=== PATIENT | male | born 1935 | race Caucasian/White ===

== ENCOUNTER → 2023-12-30 | Outpatient (CLI) | payer MEDICARE, BC, SELFPAY ==
[2023-12-30 08:30] LABS: Basophils # (Auto) 0.1 Thou/mm3 (0.0-0.2); Basophils % (Auto) 1 % (0-2.5); Eosinophils # (Auto) 0.3 Thou/mm3 (0.0-0.5); Eosinophils % (Auto) 4 % (0-10); Hematocrit 44.2 % (41.0-53.0); Hemoglobin 14.8 g/dL (13.5-16.0); Immature Granulocytes % (Auto) 0 % (0-0); Immature Granulocytes Auto 0.03 Thou/mm3 (0.00-0.00); Lymphocytes # (Auto) 1.2 Thou/mm3 (1.0-4.8); Lymphocytes % (Auto) 18 % (10-50); Mean Corpuscular HGB Conc 33.5 g/dl (31.0-37.0); Mean Corpuscular Hemoglobin 30.3 pg (25.0-35.0); Mean Corpuscular Volume 91 fL (80-100); Monocytes # (Auto) 0.6 Thou/mm3 (0.0-0.8); Monocytes % (Auto) 9 % (0-12); Neutrophils # (Auto) 4.8 Thou/mm3 (1.8-7.7); Neutrophils % (Auto) 68 % (37-80); Nucleated Red Blood Cell % 0 /100 WBC (0); Platelet Count 309 Thou/mm3 (140-440); RDW Standard Deviation 47.2 fL (35.1-43.9); Red Blood Count 4.88 Miln/mm3 (4.50-5.90)
[2023-12-30 10:03] LABS: Alanine Aminotransferase 16 U/L (10-49); Albumin/Globulin Ratio 1.9 (1.2-2.2); Alkaline Phosphatase 57 U/L (46-116); Anion Gap 5 (7-16); Aspartate Amino Transferase 19 U/L (0-34); BUN/Creatinine Ratio 21 Ratio (12-20); Blood Urea Nitrogen 25 mg/dL (9-23); Calcium 10.3 mg/dL (8.3-10.6); Calcium (Corrected) 10.3 mg/dL (8.5-10.1); Carbon Dioxide 27.9 mMol/L (20.0-31.0); Chloride 106 mMol/L (98-107); Creatinine (Component) 1.2 mg/dL (0.6-1.3); Globulin 2.1 gm/dL (2.3-3.5); Glucose 158 mg/dL (74-106); Osmolality,Calculated 284 (275-295); Potassium 4.8 mMol/L (3.4-5.1); Sodium 139 mMol/L (136-145); Total Protein 6.1 gm/dL (5.7-8.2); eGFR 58 See Note
[2023-12-30 14:57] LABS: Bilirubin,Total 0.7 mg/dL (0.3-1.2); Cardiac Risk Estimate 5.4 RATIO (4.0-6.7); Cholesterol 196 mg/dL (132-200); HDL Cholesterol 36 mg/dL (40-60); LDL Cholesterol,Calculated 139 mg/dL (0-130); Triglycerides 105 mg/dL (30-150)
[2023-12-30 16:09] LABS: Glucose Estimated Average 186 mg/dL (80-131); Hemoglobin A1C 8.1 % Hgb (4.8-6.0)
== END | disposition home or self-care (01) ==
LOC: COPL 07:02
PROVIDERS: PCP Internal Medicine; Referring Provider Internal Medicine Cardiovascular Disease; Visit Provider Internal Medicine Cardiovascular Disease
DX: I25.118 Atherosclerotic heart disease of native coronary artery with other forms of angina pectoris (principal); I25.10 Atherosclerotic heart disease of native coronary artery without angina pectoris; E78.00 Pure hypercholesterolemia, unspecified
CPT/HCPCS: 36415; 80053; 80061; 83036; 85025

== ENCOUNTER 2024-01-17 06:32 | Day surgery (SDC) | payer MEDICARE, BC, SELFPAY ==
[2024-01-13 16:17] VITALS: BMI 23.3
--- NOTE | 2024-01-16 00:01 | EKG_ITS ---
[facility] Test Date: 2024-01-16 Pat Name: BALJIT SUNSHINE Department: Room: - Gender: Male [employer]electric Component Machinist: TANYA : 1935 Requested By: Nay Hernandez Order Number: [id number] Reading MD: Nay Hernandez Measurements Intervals [place] Rate: 60 P: VT: QRS: -76 QRSD: 177 T: 76 QT: 478 QTc: 478 Interpretive Statements ELECTRONIC VENTRICULAR PACEMAKER ABNORMAL RHYTHM ECG Compared to ECG 06/17/2023 16:40:30 Atrial fibrillation no longer present /store/S0/[id number].pdf
[2024-01-16 11:12] LABS: Basophils # (Auto) 0.1 Thou/mm3 (0.0-0.2); Basophils % (Auto) 1 % (0-2.5); Eosinophils # (Auto) 0.3 Thou/mm3 (0.0-0.5); Eosinophils % (Auto) 4 % (0-10); Hematocrit 46.1 % (41.0-53.0); Hemoglobin 15.5 g/dL (13.5-16.0); Immature Granulocytes % (Auto) 0 % (0-0); Immature Granulocytes Auto 0.02 Thou/mm3 (0.00-0.00); Lymphocytes # (Auto) 1.5 Thou/mm3 (1.0-4.8); Lymphocytes % (Auto) 17 % (10-50); Mean Corpuscular HGB Conc 33.6 g/dl (31.0-37.0); Mean Corpuscular Hemoglobin 30.7 pg (25.0-35.0); Mean Corpuscular Volume 91 fL (80-100); Monocytes # (Auto) 0.8 Thou/mm3 (0.0-0.8); Monocytes % (Auto) 9 % (0-12); Neutrophils % (Auto) 69 % (37-80); Nucleated Red Blood Cell % 0 /100 WBC (0); Platelet Count 311 Thou/mm3 (140-440); RDW Standard Deviation 47.9 fL (35.1-43.9); Red Blood Count 5.05 Miln/mm3 (4.50-5.90); White Blood Count 8.7 Thou/mm3 (3.8-10.6)
[2024-01-16 11:19] LABS: Anion Gap 7 (7-16); BUN/Creatinine Ratio 17 Ratio (12-20); Blood Urea Nitrogen 22 mg/dL (9-23); Calcium 10.4 mg/dL (8.3-10.6); Carbon Dioxide 29.1 mMol/L (20.0-31.0); Chloride 101 mMol/L (98-107); Creatinine (Component) 1.3 mg/dL (0.6-1.3); Estimated Creatinine Clearance 39.3 mL/min (>60); Glucose 221 mg/dL (74-106); Osmolality,Calculated 284 (275-295); Potassium 4.8 mMol/L (3.4-5.1); Sodium 137 mMol/L (136-145); eGFR 53 See Note
[2024-01-16 11:20] LABS: INR 1.1 (0.9-1.3); Partial Thromboplastin Time 28.3 Seconds (22.0-36.0); Prothrombin Time 11.8 Seconds (9.0-12.2)
[2024-01-17] VITALS (13 sets, daily range): BP systolic 117–137; BP diastolic 65–98; PULSE 60–62; RESP 10–20; TEMP 36.3–36.8; O2SAT 96–99
--- NOTE | 2024-01-17 11:41 | ESOP_ITS ---
RE: BALJIT SUNSHINE : 1935 DATE OF OPERATION: 01/17/2024 DATE OF PROCEDURE: 01/17/2024 PROCEDURE PERFORMED: 1. Diagnostic left heart catheterization, selective coronary angiogram, left ventricular angiogram, CPT code 34187. 2. PCI, PTCA, and stent placement of the distal left anterior descending artery, placement of drug-eluting stent, Synergy 2.5 x 16 mm stent, pre-procedure stenosis 95%, post- procedure stenosis 0%, pre-procedure JEAN PIERRE flow 2, post-procedure JEAN PIERRE flow 3. CPT 96985 3. PTCA and stent placement of the proximal left anterior descending artery, placement of drug-eluting stent 3.5 x 12 mm Synergy stent, pre-procedure stenosis 99%, post- procedure stenosis 0%, JEAN PIERRE flow pre-procedure 2, post-procedure 3. cpt 99595 -59 4. PTCA and angioplasty of the mid left anterior descending artery, cutting balloon angioplasty of the mid left anterior descending artery for in-stent restenosis, pre-procedure stenosis 90%, post-procedure 0%, JEAN PIERRE flow pre-procedure 3, post- procedure 3. 5. Conscious sedation 1-hour duration. cpt 60466 59 6. Ultrasound-guided access, right radial artery. DIAGNOSIS: Coronary artery disease, status post stent placement, angina pectoris with abnormal stress test. HISTORY AND INDICATIONS: The patient is an 88-year-old male with a history of known CAD, multiple stent placement of the left anterior descending artery in the past, atrial fibrillation. Has been increasing chest tightness, shortness of breath on exertion. Cardiac stress test and nuclear scan was performed that showed evidence of anteroapical ischemia, hence coronary angiogram was recommended for assessment of possible PCI intervention PROCEDURE IN DETAILS: The patient was brought to the cardiac catheterization laboratory where he was conscious sedation total of 2 mg Versed and 100 mcg of fentanyl. Right radial approach was taken. Right radial artery cannulated with micropuncture technique and a 6- Lebanese Glidesheath was introduced. Selective diagnostic right and left coronary angiogram, left heart catheterization, left ventricular angiogram performed by TIG-4 diagnostic catheter. Diagnostic procedure showed following findings: The right coronary artery is large and dominant, showed no significant stenosis. Large posterolateral branch showed evidence 90% stenosis distally. Posterior descending artery showed mild diffuse disease distally. Also, RCA giving a collateral circumflex Left coronary system: Left coronary is normal. Left anterior descending artery showed 99% stenosis of the proximal left anterior descending artery involving the origin of septal pipe bowls paint trimmer. Circumflex artery gives her AV groove branch. There is small obtuse marginal branch that is occluded, filling by collaterals. Proximal left anterior descending artery showed a 90% de patel stenosis. Mid left anterior descending artery showed a long stent with 90% in- stent restenosis. Distal left anterior descending artery showed de patel stenosis, 95% stenosis. Left ventricular pressure 116/10. Aortic pressure 116/80. No gradient across the aortic valve. Left ventricular angiogram showed normal left ventricular wall motion, ejection fraction 60%. Following diagnostic procedure, PCI undertaken. Multiple lesions in the left anterior descending artery were addressed. The patient received radial cocktail 3000 heparin. Additional 3000 heparin was given. Aspirin and Brilinta loading dose was given. Proceed with PCI initially. A 6 Lebanese FL3.5 guiding catheter was used to cannulate the left main coronary artery. Because I had inadequate support, I used Guidezilla guideliner support catheter and subsequently 0.014 Runthrough guidewire used to cross the lesion successfully. Distal left anterior descending artery was predilated using 2.25 x 12 mm balloon. The mid and proximal left anterior descending artery also predilated subsequently. Stent placement of distal left anterior descending artery performed. A 2.5 x 16 mm Synergy stent was developed distally in the left anterior descending artery _ subsequently. I dilated the mid LAD again with 2.5 mm balloon. Subsequently, proximal left anterior descending artery was predilated using 2.5 mm balloon and stent placement of the proximal left anterior descending artery was performed using 3.5 x 12 mm Synergy stent deployed in the proximal LAD. Two inflations were performed subsequently. Post stent deployment angioplasty of the proximal left anterior descending artery performed by 3.5 x 12 NC balloon with 6 atmospheric pressure. Subsequently, same 3.5 mm balloon was used to post dilated stents in the mid LAD. I performed a cutting balloon angioplasty because of in-stent restenosis for mid left anterior descending artery. A 3 x 10 Maxwell cutting balloon was used to dilate the mid left anterior descending artery in-stent restenosis successfully. Post dilated using 3.5 mm NC balloon at lower atmospheres of 8 mm pressures. Final angiogram showed widely patent proximal LAD, mid LAD, distal LAD. SUMMARY OF FINDINGS/SUGGESTIONS: 1. Complex PCI stent placement of the proximal mid and distal left anterior descending artery. Multiple stents placed and as well as cutting balloon angioplasty of the mid LAD performed. In the proximal LAD, pre-procedure stenosis is 99%, post-procedure is 0%. Stent is 3.5 x 12. No residual stenosis. 2. Mid LAD in-stent restenosis angioplasty successful using balloon angioplasty and cutting balloon angioplasty with excellent results. Pre-procedure stenosis 90%, post-procedure 0%, JEAN PIERRE flow pre and post 2 and 3. Distal LAD stent placement using 2.5 x 16 mm Synergy stent, pre-procedure stenosis 95%, post-procedure 0%, JEAN PIERRE flow 2 and 3. Complications none. Radial artery TR band was applied. Hemostasis was secured. The patient will be discharged home on aspirin 81 mg daily, Brilinta 90 mg twice daily. DT: 09:57:45 TT: 11:26:00 Ref: [id number] - TID: [id number] MTDD
== END 2024-01-17 13:30 | disposition home or self-care (01) ==
PROVIDERS: PCP Internal Medicine; Referring Provider Internal Medicine Cardiovascular Disease; Visit Provider Internal Medicine Cardiovascular Disease
PROC: (CPT 93458; principal; 2024-01-17 07:30)
PROC: (CPT 93458; 2024-01-17 07:30)
DX: I25.708 Atherosclerosis of coronary artery bypass graft(s), unspecified, with other forms of angina pectoris (principal); I25.118 Atherosclerotic heart disease of native coronary artery with other forms of angina pectoris; I48.91 Unspecified atrial fibrillation; Z95.5 Presence of coronary angioplasty implant and graft; I10 Essential (primary) hypertension; E11.9 Type 2 diabetes mellitus without complications; E78.00 Pure hypercholesterolemia, unspecified
CPT/HCPCS: 93458; C9604 ×2; C9605; 36415; 80048; 85025; 85347; 85610; 85730; 93005; 99152; 99153; A4649; C1725; C1769; C1874; C1887; C1894; J0171; J0461; J1643; J2250; J2310; J2371; J3010; J3490; Q9967; A9270; J1644; J2305

== ENCOUNTER 2024-02-21 10:06 | Day surgery (SDC) | payer MEDICARE, BC, SELFPAY ==
--- NOTE | 2024-02-20 11:02 | EKG_ITS ---
[facility] Test Date: 2024-02-20 Pat Name: BALJIT SUNSHINE Department: Room: - Gender: Male Supervisor Production: SAMUEL CORREAB: 1935 Requested By: Nay Hernandez Order Number: [id number] Reading MD: Nay Hernandez Measurements Intervals [place] Rate: 60 P: DC: QRS: -79 QRSD: 174 T: 80 QT: 468 QTc: 468 Interpretive Statements ELECTRONIC VENTRICULAR PACEMAKER ABNORMAL RHYTHM ECG Compared to ECG 01/16/2024 10:08:39 No significant changes /store/S0/[id number]/[id number].pdf
[2024-02-20 12:36] LABS: Basophils # (Auto) 0.1 Thou/mm3 (0.0-0.2); Basophils % (Auto) 1 % (0-2.5); Eosinophils # (Auto) 0.2 Thou/mm3 (0.0-0.5); Eosinophils % (Auto) 4 % (0-10); Hematocrit 43.9 % (41.0-53.0); Hemoglobin 14.9 g/dL (13.5-16.0); Immature Granulocytes % (Auto) 1 % (0-0); Immature Granulocytes Auto 0.04 Thou/mm3 (0.00-0.00); Lymphocytes # (Auto) 1.4 Thou/mm3 (1.0-4.8); Lymphocytes % (Auto) 22 % (10-50); Mean Corpuscular HGB Conc 33.9 g/dl (31.0-37.0); Mean Corpuscular Hemoglobin 31.1 pg (25.0-35.0); Mean Corpuscular Volume 92 fL (80-100); Monocytes # (Auto) 0.6 Thou/mm3 (0.0-0.8); Monocytes % (Auto) 9 % (0-12); Neutrophils # (Auto) 4.1 Thou/mm3 (1.8-7.7); Neutrophils % (Auto) 64 % (37-80); Nucleated Red Blood Cell % 0 /100 WBC (0); Platelet Count 303 Thou/mm3 (140-440); RDW Standard Deviation 49.3 fL (35.1-43.9); Red Blood Count 4.79 Miln/mm3 (4.50-5.90); White Blood Count 6.4 Thou/mm3 (3.8-10.6)
[2024-02-20 12:38] LABS: Anion Gap 7 (7-16); BUN/Creatinine Ratio 15 Ratio (12-20); Blood Urea Nitrogen 19 mg/dL (9-23); Chloride 101 mMol/L (98-107); Creatinine (Component) 1.3 mg/dL (0.6-1.3); Glucose 264 mg/dL (74-106); Osmolality,Calculated 285 (275-295); Potassium 5.1 mMol/L (3.4-5.1); Sodium 137 mMol/L (136-145); eGFR 53 See Note
[2024-02-20 12:40] LABS: INR 1.1 (0.9-1.3); Prothrombin Time 11.5 Seconds (9.0-12.2)
[2024-02-20 14:43] VITALS: BMI 24.0
[2024-02-21] VITALS (14 sets, daily range): BP systolic 110–143; BP diastolic 62–82; PULSE 60; RESP 11–18; TEMP 36.1–36.4; O2SAT 95–99; BMI 24.4
--- NOTE | 2024-02-21 14:44 | ESOP_ITS ---
RE: BALJIT SUNSHINE : 1935 DATE OF OPERATION: 02/21/2024 PROCEDURE PERFORMED: 1. Diagnostic left heart cardiac catheterization, selective coronary angiogram, left ventricular angiogram CPT 51995. 2. PCI, PTCA stent placement of the posterolateral branch of RCA, placement of drug-eluting stent, 2.5 x 16 Synergy stent. Preprocedure stenosis is 95%, postprocedure 0%. JEAN PIERRE flow preprocedure 2, postprocedure 3, complex lesion, CPT 51044. 3. Ultrasound-guided access, right radial artery. DIAGNOSES: Coronary artery disease, status post previous stent placement, multivessel CAD, angina pectoris. HISTORY AND INDICATIONS: The patient is an 88-year-old male with history of hypertension, angina, coronary artery disease, underwent stent placement of proximal, mid and distal left anterior descending artery a month ago, had recurrent shortness of breath and chest pressure. The patient was found to have 95% stenosis with a large RPL branch of the right coronary artery. Recommended to have coronary angiogram. If the LAD is patent, proceed with PCI of RCA. DESCRIPTION OF PROCEDURE: The patient was brought to cardiac catheterization laboratory. He was given 2 mg of Versed and 50 mcg of fentanyl for sedation. Right radial approach was taken. Right radial artery was cannulated with micropuncture technique. A 6-Thai Glidesheath was introduced. Selective left coronary angiogram performed by JL3.5 diagnostic catheter. Left ventricular angiogram, left heart catheterization was also performed by same catheter. Subsequently, we used FR4 guiding catheter for PCI. Radial cocktail, 3000 units of heparin given. Additional 2000 units plus 500 units of heparin was given. ACT was therapeutic. The patient is already on aspirin and Brilinta. Proceeded with PCI of RCA. Right coronary angiogram showed evidence of a 95% stenosis in the posterolateral branch of the right coronary artery. Left coronary angiogram showed left main coronary artery is normal. Left anterior descending artery showed multiple stents are all patent. Diagonal branch showed moderate disease. HEMODYNAMICS: Left ventricular pressure recorded 106/10 mmHg, aortic pressure 106/70 mmHg. No gradient across the aortic valve. Left ventricular angiogram showed normal ejection fraction of 60%. PCI details are as follows: The patient was given IV heparin 5000 FR4 guiding catheter used anf cannulated right coronary artery. A 0.014 Runthrough guidewire was used to cross the lesion successfully. Pre-dilation of the lesion performed by 2 mm Emerge balloon. Subsequently, 2.5 x 16 mm Synergy drug eluting stent was deployed in the posterolateral branch of the right coronary artery with excellent angiographic results. Total 3 inflations performed with maximum of 14 KWAN, POST Angiogram showed widely patent RCA and posterolateral branch with no residual stenosis. SUMMARY OF FINDINGS: 1. Widely patent stent involving proximal, mid and distal left anterior descending artery and no restenosis. 2. 95% stenosis of the posterolateral branch of RCA, 2.5 mm vessel, underwent successful PCI with stent placement drug eluting stent Synergy 2.5 x 16 stent. No complications. Estimated blood loss was less than 5 mL. The TR band was applied and sheath was removed successfully. The patient will be discharged on the same day. Continue current medications including aspirin and Brilinta. DT: 13:07:11 TT: 13:56:00 Ref: [id number] - TID: [id number] [facility]
--- NOTE | 2024-02-21 16:19 | PC.NURSE ---
1455 patient is awake, alert, breathing unlabored s/p LHC with PCI, TR band present to right wrist, no bleeding, hematoma noted. Report received from Jessica STUART ok to start removing air from TR band after 1502. 1505 2ml air removed from TR band by Catalina Charge nurse, no active bleeding or hematoma noted. 1555 TR band removed, no bleeding or hematoma noted, site covered with tegaderm and coban.
--- NOTE | 2024-02-21 17:58 | PC.NURSE ---
1710 patient is awake, alert, breathing unlabored, dressing to right wrist dry with no bleeding or hematoma, discharge instructions given to patient and family member stanley, patient discharged home in wheelchair with all belongings including walker.
== END 2024-02-21 17:10 | disposition home or self-care (01) ==
PROVIDERS: PCP Internal Medicine; Referring Provider Internal Medicine Cardiovascular Disease; Visit Provider Internal Medicine Cardiovascular Disease
PROC: (CPT 93458; principal; 2024-02-21 11:30)
DX: I25.118 Atherosclerotic heart disease of native coronary artery with other forms of angina pectoris (principal); I10 Essential (primary) hypertension; Z01.810 Encounter for preprocedural cardiovascular examination; Z95.5 Presence of coronary angioplasty implant and graft; I48.91 Unspecified atrial fibrillation; E11.9 Type 2 diabetes mellitus without complications
CPT/HCPCS: 93458; C9600; 36415; 80048; 85025; 85347; 85610; 85730; 93005; 99152; 99153; A4649; C1725; C1769; C1874; C1887; C1894; J0171; J0461; J1643; J2250; J2310; J2371; J3010; J3490; Q9967; J2305

== ENCOUNTER 2024-02-22 12:27 | Inpatient (IN) | payer MEDICARE, BC, SELFPAY ==
[2024-02-22] VITALS (8 sets, daily range): BP systolic 135–152; BP diastolic 69–82; PULSE 60–67; RESP 14–24; TEMP 35.8–36.7; O2SAT 97–100
--- NOTE | 2024-02-22 13:00 | PC.NURSE ---
PT BIBA FOR FACIAL DROOP, APHASIA, AND CONFUSION THAT STARTED THIS MORNING AROUND 9 AM. PER PATIENT FAMILY HE HAVING A VERY HARD TIME GETTING WORDS OUT AND NOT ABLE TO ARTICULATE WHAT HE WANTED TO SAY. THIS IS NOT HIS NORMAL BASELINE. PT ARRIVED AND WAS HAVING EPISODE OF APHASIA, ALERT AND ORIENTED X2, PT ALSO HAS HX OF DEMENTIA, PARKINSONS, DM, HTN, AFIB YESTERDAY HE HAD STENTS PLACED BY DR PRIETO. AND WAS RECENTLY TAKEN OFF OF ELOQUIS. PT ALSO HAS A PACEMAKER. CHALINO VALENTE CONTACTED AND EVALUATING PT.
--- NOTE | 2024-02-22 13:27 | EKG_ITS ---
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
--- NOTE | 2024-02-22 13:27 | XR_ITS ---
Examination: AP chest single view Technique one AP portable upright chest single view Exam date and time: February 22, 2024 1448 hours Comparison April 07, 2017 INDICATIONS: Onset chest pain today FINDINGS: Mild enlargement cardiac contour Ventricular cardiac lead satisfactory position No pneumonia or pulmonary edema Prominent osteopenia IMPRESSION: Mild vascular congestion No pneumonia or pulmonary edema
--- NOTE | 2024-02-22 13:29 | PD.EDNEURO ---
Neuro Symptoms Deficit-RME/HPI General Chief Complaint: Neuro Symptoms/Deficit Stated Complaint: FACIAL DROOP Time Seen by Provider: 02/22/24 13:41 Arrival date/time: 02/22/24 12:27 RME / HPI RME / HPI Narrative: 88 year old male with history of Parkinson's disease, dementia, CAD s/p stents x6, AFib, s/p pacemaker placement, diabetes presents to the ED for evaluation of altered mental status today. Per medics, [place] staff reported family noticed a facial droop prompting calling 911. Medics report on scene patient was a GCS of 14 which is his baseline and no deficits noted. While in the ED, patient has no complaints and requesting a urinal to urinate. 1335: Daughter now at bedside. Reports patient underwent angiogram and stent placement by Dr. Tomas Andersen yesterday(02/20) without complications. Was dropped off at the half-way ~ 6pm last night and appeared to be at his baseline. However, states she received a call at 7pm from her [id number] who also lives at the half-way that the patient appeared more confused than normal. This morning while visiting the patient at 07:30 am appeared to be at his baseline and conversive. States at 09:30-10:00 am the patient began having difficulty talking and by 11:00 am says the whole mouth was drooping and was unable to say his name or date of . Daughter states they consulted with tank inspector Dr. Andersen who advised coming to the ED, stopping the Brilinta, restarting the Eliquis tonight and would also prescribe Plavix. Related Data Home Medications ?Medication ?Instructions ?Recorded ?Confirmed aspirin 81 mg tablet,delayed 81 mg PO QDAY 06/20/23 02/21/24 release insulin glargine 100 unit/mL (3 20 unit subcut DAILY 06/20/23 02/21/24 mL) subcutaneous pen (Lantus Solostar U-100 Insulin) ramipril 2.5 mg tablet 2.5 mg PO QDAY 06/20/23 02/21/24 sitagliptin phosphate 50 mg tablet 50 mg PO QDAY 06/20/23 02/21/24 (Januvia) metformin 500 mg tablet 500 mg PO BID 01/17/24 02/21/24 nateglinide 60 mg tablet 60 mg PO BID 01/17/24 02/21/24 Previous Rx's ?Medication ?Instructions ?Recorded ticagrelor 90 mg tablet (Brilinta) 90 mg PO BID #60 tabs 01/17/24 Allergies Allergy/AdvReac Type Severity Reaction Status Date / Time No Known Allergies Allergy Verified 01/13/24 16:14 Review of Systems Review of Systems Narrative Review of Systems: GEN: No fever, no chills, no weight loss EYES: No discharge, no visual changes, no pain HEENT: No ear pain, no congestion, no sore throat PULM: No shortness of breath, no cough, no congestion CV: No chest pain, no dyspnea on exertion, no palpitations GI: No nausea, no vomiting, no diarrhea, no pain, no constipation : No frequency, no urgency and no dysuria MUSC/SKEL No joint pain, no back pain SKIN: No rash NEURO: No weakness, no headache, +mouth drooping per daughter, + expressive aphasia per daughter Past Medical History Past Medical History NEUROLOGIC: Positive Neurological Disorders, Dementia (diagnosed 12/2022) and Parkinson's Disease (diagnosed 12/2022) CARDIAC: Positive Cardiac Disorders (stents), Atrial Fibrillation and Hypertension (controlled at this time) RESPIRATORY: Positive Pneumonia (in past) GENITOURINARY: Positive Genitourinary Disorders and Benign Prostatic Hyperplasia (in past, asymptomatic now) MUSCULOSKELETAL: Positive Musculoskeletal Disorders ENT: Positive Cataracts and Deafness ([employer]RE[employer]-WE[employer] BILAT HEARING AIDES) ENDOCRINE: Positive Endocrine Disorders and Diabetes Mellitus Type 2 OTHER HISTORY: Positive Cancer (prostate cancer) Surgical History SURGICAL: Positive Cardiac Surgery, Coronary Stent (2009), Pacemaker, Angiogram, Transurethral Resection (2016) and Joint Replacement (BILATERAL HIPS 1987) Social History SMOKING STATUS: Never smoker ED Exam Narrative Physical exam: GENERAL APPEARANCE: Awake, tremulous, well-developed, well-nourished, no acute distress HEENT: Normocephalic, atraumatic; pupils equal, round, reactive to light; EOMI; mucous membranes pink, moist; oropharynx clear NECK: Supple LUNGS: CTABL; no wheezes, no rales, no rhonchi HEART: Regular rate, regular rhythm; normal S1, S2; no murmurs ABDOMEN: non distended; normal BS; soft, no tenderness, no guarding, no rebound; no masses, no organomegaly, no hernia BACK: no CVA tenderness EXTREMITIES: atraumatic; no edema NEUROLOGIC: awake; alert and oriented x4; cranial nerves II-XII grossly intact; tremulous; strength 5/5 bilateral upper extremities; no focal sensory or motor deficits PSYCHIATRIC: appropriate mood and affect SKIN: warm, dry, normal color; no rashes On reexamination at 13:35 patients speech is slurred and appears confused. Course Course Course Narrative: 1339: Stroke alert called overhead. Quality Measures stroke Orders Category Date Time Status Patient Condition Routine Admission 02/22/24 16:25 Ordered admission [Admit to Inpatient Status] Routine Admission 02/22/24 16:35 Active Aspiration precautions ONCE Care 02/22/24 16:35 Active Bedside Blood Glucose ACHS Care 02/22/24 16:36 Active Bedside Blood Glucose NOW Care 02/22/24 13:39 Active COVID-19 Screening Questionnaire NOW Care 02/22/24 15:54 Active Statue Maker NOW Care 02/22/24 13:27 Active Statue Maker NOW Care 02/22/24 13:39 Active Continuous Pulse Oximetry NOW Care 02/22/24 13:39 Completed Decision to Admit X1 Care 02/22/24 15:54 Active EKG (ED ONLY) *Do not use* NOW Care 02/22/24 13:27 Completed Flu & Pneumonia Vaccine Screen ONCE Care 02/22/24 16:25 Active HOB > 30 Degrees All Times QSHIFT Care 02/22/24 16:25 Active In and Out Catheter NEEDED Care 02/22/24 13:39 Active Insert IV NOW Care 02/22/24 13:39 Active MRI Screening NOW Care 02/22/24 14:40 Active MRI Screening NOW Care 02/22/24 16:27 Active Miscellaneous Nursing Order NOW Care 02/22/24 16:41 Active NIH Stroke Scale now Care 02/22/24 13:39 Active NPO NOW Care 02/22/24 13:39 Active NPO NOW Care 02/22/24 16:30 Active Neuro Check Q4H Care 02/22/24 16:25 Active Notify provider NEEDED Care 02/22/24 16:25 Active Nurse Swallow Screen x1 Care 02/22/24 13:39 Active Consult to Cardiology Stat Cons 02/22/24 16:48 Ordered Consult to Neurology / Tele-Neurology Routine Cons 02/22/24 13:39 Active Consult to Neurology / Tele-Neurology Stat Cons 02/22/24 16:48 Active Referral Physical Therapy Stat Cons 02/22/24 16:29 Active Referral Speech Therapy Stat Cons 02/22/24 16:27 Active Diet NPO (NOW) Diet 02/22/24 16:30 Active CA echo doppler complete Stat Exams 02/22/24 16:25 Ordered CA echo doppler complete Stat Exams 02/22/24 16:[address] angio stroke protocol Stat Exams 02/22/24 13:[address] stroke protocol Stat Exams 02/22/24 13:39 Completed EKG (ED Only) Stat Exams 02/22/24 13:27 Draft MR head/brain wo con Stat Exams 02/22/24 Ordered MR stroke protocol Stat Exams 02/22/24 Ordered XR chest 1V portable Stat Exams 02/22/24 13:27 Completed B-Type Natriuretic Peptide Stat Lab 02/22/24 13:46 Completed CBC AM DRAW Lab 02/23/24 05:00 Ordered CBC AM DRAW Lab 02/24/24 05:00 Ordered CBC AM DRAW Lab 02/25/24 05:00 Ordered CBC AM DRAW Lab 02/26/24 05:00 Ordered CBC AM DRAW Lab 02/27/24 05:00 Ordered CBC Stat Lab 02/22/24 13:46 Completed Comprehensive Metabolic Panel AM DRAW Lab 02/23/24 05:00 Ordered Comprehensive Metabolic Panel AM DRAW Lab 02/24/24 05:00 Ordered Comprehensive Metabolic Panel AM DRAW Lab 02/25/24 05:00 Ordered Comprehensive Metabolic Panel AM DRAW Lab 02/26/24 05:00 Ordered Comprehensive Metabolic Panel AM DRAW Lab 02/27/24 05:00 Ordered Comprehensive Metabolic Panel Stat Lab 02/22/24 13:46 Completed Drug Screen,Urine Stat Lab 02/22/24 13:39 Ordered Glycohemoglobin w (eAG) Stat Lab 02/22/24 16:29 Ordered Lipase Stat Lab 02/22/24 13:46 Completed Lipid Panel AM DRAW Lab 02/23/24 05:00 Ordered Magnesium AM DRAW Lab 02/23/24 05:00 Ordered Magnesium AM DRAW Lab 02/24/24 05:00 Ordered Magnesium AM DRAW Lab 02/25/24 05:00 Ordered Magnesium AM DRAW Lab 02/26/24 05:00 Ordered Magnesium AM DRAW Lab 02/27/24 05:00 Ordered Magnesium Stat Lab 02/22/24 13:46 Completed Partial Thromboplastin Time Stat Lab 02/22/24 13:46 Completed Prothrombin Time with INR Stat Lab 02/22/24 13:46 Completed TSH [Thyroid Stimulating Hormone] Stat Lab 02/22/24 16:29 Ordered Thyroid Stimulating Hormone AM DRAW Lab 02/23/24 05:00 Ordered Troponin I Stat Lab 02/22/24 13:46 Completed Urinalysis Stat Lab 02/22/24 13:39 Ordered Urine Culture Stat Lab 02/22/24 13:39 Ordered Vitamin B12 Stat Lab 02/22/24 16:29 Ordered Acetaminophen Tab [Tylenol Tab] Med 02/22/24 16:25 Active 650 mg PO Q6H PRN Acetaminophen Tab [Tylenol Tab] Med 02/22/24 16:25 Active 650 mg PO Q6H PRN Aspirin Med 02/22/24 15:48 Discontinued 325 mg .ROUTE .STK-MED ONE Aspirin Med 02/22/24 16:09 Discontinued 325 mg PO X1 ONE Aspirin Supp Med 02/22/24 14:39 Discontinued 300 mg CA X1 ONE Aspirin [Ecotrin] Med 02/23/24 09:00 Active 81 mg PO QDAY Atorvastatin Calcium [Lipitor] Med 02/22/24 21:00 Active 80 mg PO HS Clopidogrel [Plavix] Med 02/22/24 14:39 Discontinued 300 mg PO X1 ONE Clopidogrel [Plavix] Med 02/23/24 09:00 Active 75 mg PO QDAY Dextrose 50% Syr [D50w Syringe Abboject] Med 02/22/24 16:36 Active 25 ml IV Q15MIN PRN Dextrose 50% Syr [D50w Syringe Abboject] Med 02/22/24 16:36 Active 50 ml IV Q15MIN PRN Docusate Sod [Colace] Med 02/23/24 09:00 Active 100 mg PO QDAY Glucagon Inj Med 02/22/24 16:36 Active 1 mg IM Q15MIN PRN INSULIN LISPRO (AdmeLOG) [HumaLOG] Med 02/22/24 17:00 Active See Protocol SC AC Ondansetron Inj [Zofran Inj] Med 02/22/24 16:25 Active 4 mg IV Q6H PRN Sodium Chloride 0.9% 1000 ml [Ns] 1,000 ml Med 02/22/24 16:30 Active IV 75 mls/hr Code Status Routine Oth 02/22/24 16:25 Ordered Oxygen Delivery NOW RT 02/22/24 13:39 Active Vital Signs Vital signs: Vital Signs Temperature 97.8 F 02/22/24 12:55 Pulse Rate 60 02/22/24 12:55 Respiratory Rate 20 02/22/24 12:55 Blood Pressure 139/76 H 02/22/24 12:55 Pulse Oximetry (%) 100 02/22/24 12:55 Oxygen Delivery Method Room Air 02/22/24 12:55 Pulse ox is 100% on room air which is adequate. Neuro Symptoms / Deficit MDM Narrative MDM Narrative:: Jaquelin Monterroso am scribing for and in the presence of Dr. Headley. Patient data External records reviewed:: [facility] previous records (I reviewed H&P from Dr. Andersen on 02/21/2024), EMS form and Skilled Nursing records (I reviewed pmhx and medication list from half-way) Clinical information provided by:: patient, EMS and family (Daughter add to hpi) Social determinants that could affect healthcare access:: housing ([place] resident ) Patient has the following chronic illnesses:: Parkinson's disease, dementia, CAD s/p stents x6, AFib, s/p pacemaker placement, diabetes How is presenting disease/condition affected by chronic disease/condition?: exacerbated by Evaluation data The following diagnostics were reviewed and interpreted by me:: lab results, radiology exam(s) and EKG tracing(s) (EKG done at 1344 hours: pacemaker, rate 60) Lab and/or radiology exams considered but not ordered:: None Interpretation Summary: Procedure(s): XR chest 1V portable Accession Number(s): [id number] cc: Yusuf Martin MD; Geremias Higgins MD; Jo Headley MD~ Examination: AP chest single view Technique one AP portable upright chest single view Exam date and time: February 22, 2024 1448 hours Comparison April 07, 2017 INDICATIONS: Onset chest pain today FINDINGS: Mild enlargement cardiac contour Ventricular cardiac lead satisfactory position No pneumonia or pulmonary edema Prominent osteopenia IMPRESSION: Mild vascular congestion No pneumonia or pulmonary edema Dictated By: Geremias Higgins MD Procedure(s): CT stroke protocol Accession Number(s): [id number] cc: Geremias Higgins MD; Jo Headley MD~ Examination: CT brain head without contrast. 2-D sagittal coronal reconstructions Date and time of exam:February 22, 2024 1405 hours INDICATIONS: Stroke alert with onset aphasia today altered mental status CTDI: vol (mGy):49.7 DLP: (mGycm):982 Technique: Multiple CT axial sections of the brain have been obtained, 5 mm slice thickness. Contrast has not been administered. 2-D sagittal, coronal reconstructions have been obtained Low dose protocols were performed. One or more of the following dose reduction techniques were used; automated exposure control, adjustment of the mA and/or KV according to patient size, use of iterative reconstruction technique. Findings: No significant ventricular enlargement. Intra-axial or extra-axial hemorrhage density is not seen. No mass effect or midline shift Basal cisterns are not remarkable. Fourth ventricle is midline. Cranial vault intact. Impression: Negative for acute hemorrhage, mass effect or midline shift Dictated By: Geremias Higgins MD Procedure(s): CT angio stroke protocol Accession Number(s): [id number] cc: Yusuf Martin MD; Geremias Higgins MD; Jo Headley MD~ Examination: CTA carotids with intravenous contrast CTA brain, head with intravenous contrast. 2-D sagittal, coronal reconstructions. 3-D reconstructions. Exam date and time: February 22, 2024 1411 hours INDICATIONS: Stroke alert today, altered mental status and aphasia CTDI: vol (mGy) 32.7 DLP: (mGycm) 457 Technique: Multiple CTA axial brain, head carotid images post intravenous contrast injection 75 cc, Isovue-370. 2-D sagittal, coronal reconstructions. 3-D reconstructions, 3-D post processing including vascular maximum intensity projection images. Low dose protocols were performed. One or more of the following dose reduction techniques were used; automated exposure control, adjustment of the mA and/or KV according to patient size, use of iterative reconstruction technique. Findings: No significant common carotid carotid bifurcation or internal carotid artery stenoses Dominant left vertebral artery with no critical stenoses Short segment 70% stenosis distal M1 segment right middle cerebral artery Markedly reduced caliber and opacification left posterior cerebral artery although no large vessel occlusions IMPRESSION: No significant neck arterial stenoses Short segment 70% stenosis distal M1 segment right middle cerebral artery Markedly reduced caliber and opacification left posterior cerebral artery Dictated By: Geremias Higgins MD Medications / Prescriptions Medications or Prescriptions considered but not ordered:: None Medication administrations:: Medication Administration History Acetaminophen (Acetaminophen 325 Mg Tablet) 650 mg PO Q6H PRN PRN Reason: Fever >100.5 Stop: 03/23/24 16:24 Acetaminophen (Acetaminophen 325 Mg Tablet) 650 mg PO Q6H PRN PRN Reason: PAIN SCALE 1-3 (mild Stop: 03/23/24 16:24 Aspirin (Aspirin Ec 81 Mg Tabec) 81 mg PO QDAY MI Stop: 03/24/24 08:59 Atorvastatin Calcium (Atorvastatin Calcium 20 Mg Tablet) 80 mg PO HS MI Stop: 03/23/24 20:59 Clopidogrel Bisulfate (Clopidogrel Bisulfate 75 Mg Tablet) 75 mg PO QDAY MI Stop: 03/24/24 08:59 Dextrose (Dextrose 50%-Water Inj 50 Ml Syringe) 50 ml IV Q15MIN PRN PRN Reason: BG <50 OR BG <70 & pt unresponsive Stop: 03/23/24 16:35 Dextrose (Dextrose 50%-Water Inj 50 Ml Syringe) 25 ml IV Q15MIN PRN PRN Reason: BG 50-70 responsive npo pt Stop: 03/23/24 16:35 Docusate Sodium (Docusate Sod 100 Mg Capsule) 100 mg PO QDAY [facility]; Protocol Stop: 03/24/24 08:59 Glucagon (Glucagon Inj 1 Mg Vial) 1 mg IM Q15MIN PRN PRN Reason: BG <70, and no IV access Sodium Chloride (Ns) 1,000 mls @ 75 mls/hr IV .[id number] [facility] Stop: 03/24/24 12:29 Insulin Human Lispro (Insulin Lispro (Admelog) 1 Unit/0.01 Ml Unit) 0 unit SC AC [facility]; Protocol Stop: 03/23/24 16:59 Ondansetron HCl (Ondansetron Inj 2 Mg/Ml Inj 2 Ml) 4 mg IV Q6H PRN; Protocol PRN Reason: NAUSEA OR VOMITING Stop: 03/23/24 16:24 Discontinued Medications Aspirin (Aspirin 300 Mg Supp) 300 mg CA X1 ONE Stop: 02/22/24 14:40 Last Admin: 02/22/24 16:10 Dose: Not Given Documented By: ARF Non-Admin Reason: Other, see note Aspirin (Aspirin 325 Mg Tablet) Confirm Administered Dose 325 mg .ROUTE .STK-MED ONE Stop: 02/22/24 15:49 Last Admin: 02/22/24 16:10 Dose: Not Given Documented By: ARF Non-Admin Reason: Other, see note Aspirin (Aspirin 325 Mg Tablet) 325 mg PO X1 ONE Stop: 02/22/24 16:10 Last Admin: 02/22/24 16:10 Dose: 325 mg Documented By: ARF Clopidogrel Bisulfate (Clopidogrel Bisulfate 75 Mg Tablet) 300 mg PO X1 ONE Stop: 02/22/24 14:40 Last Admin: 02/22/24 16:02 Dose: 300 mg Documented By: ARF see above Consultations Consultation(s) initiated? (list below): Yes Consultation #1 (Physician, Specialty, Details): Discussed test HPI, PMHx, lab, radiology results and/or management with hospitalist. Will admit for further evaluation and management. Accepts patient for admission. Time: 16:30 Diagnosis Neuro Differential Diagnosis: subarachnoid hemorrhage, cerebrovascular accident and transient cerebral ischemia Most likely diagnosis given after review of the tests above:: As noted below. Admission Indicated Admission indicated?: indicated Admission Request Was there a request for admission?: Yes Admission Attestation Admission request attestation: Discussed case with [] from Hospitalist service regarding admission. Discussed patients ED course, exam findings, labs, and radiology results. The Hospitalist [agrees,declines] to accept the patient for admission. Disposition Plan Disposition Plan: Admit Discharge Plan Plan Patient Disposition: Admit Acute Care w/in Hospital Prescriptions/Referrals Prescriptions/Med Rec: No Action aspirin 81 mg Tablet,Delayed Release (Dr/Ec) 81 mg PO QDAY Hold Instructions: Resume on 06/22/23. Januvia 50 mg Tablet 50 mg PO QDAY insulin glargine [Lantus Solostar U-100 Insulin] 100 unit/mL (3 mL) Insulin Pen 20 unit SUBCUT DAILY Rx Instructions: with meal ramipril 2.5 mg Tablet 2.5 mg PO QDAY metformin 500 mg Tablet 500 mg PO BID Hold Instructions: Resume on 02/23/24. nateglinide 60 mg Tablet 60 mg PO BID Rx Instructions: give before meal(s) Brilinta 90 mg Tablet 90 mg PO BID Qty: 60 0RF Referrals: Yusuf Martin MD [Primary Care Provider] - In 1 week Patient/Caregiver Discharge Instructions Print Language: Liberian Stand Alone Forms: [facility] Award Info., Patient Portal Info Letter
--- NOTE | 2024-02-22 13:39 | XR_ITS ---
Examination: CT brain head without contrast. 2-D sagittal coronal reconstructions Date and time of exam:February 22, 2024 1405 hours INDICATIONS: Stroke alert with onset aphasia today altered mental status CTDI: vol (mGy):49.7 DLP: (mGycm):982 Technique: Multiple CT axial sections of the brain have been obtained, 5 mm slice thickness. Contrast has not been administered. 2-D sagittal, coronal reconstructions have been obtained Low dose protocols were performed. One or more of the following dose reduction techniques were used; automated exposure control, adjustment of the mA and/or KV according to patient size, use of iterative reconstruction technique. Findings: No significant ventricular enlargement. Intra-axial or extra-axial hemorrhage density is not seen. No mass effect or midline shift Basal cisterns are not remarkable. Fourth ventricle is midline. Cranial vault intact. Impression: Negative for acute hemorrhage, mass effect or midline shift
--- NOTE | 2024-02-22 13:39 | XR_ITS ---
Examination: CTA carotids with intravenous contrast CTA brain, head with intravenous contrast. 2-D sagittal, coronal reconstructions. 3-D reconstructions. Exam date and time: February 22, 2024 1411 hours INDICATIONS: Stroke alert today, altered mental status and aphasia CTDI: vol (mGy) 32.7 DLP: (mGycm) 457 Technique: Multiple CTA axial brain, head carotid images post intravenous contrast injection 75 cc, Isovue-370. 2-D sagittal, coronal reconstructions. 3-D reconstructions, 3-D post processing including vascular maximum intensity projection images. Low dose protocols were performed. One or more of the following dose reduction techniques were used; automated exposure control, adjustment of the mA and/or KV according to patient size, use of iterative reconstruction technique. Findings: No significant common carotid carotid bifurcation or internal carotid artery stenoses Dominant left vertebral artery with no critical stenoses Short segment 70% stenosis distal M1 segment right middle cerebral artery Markedly reduced caliber and opacification left posterior cerebral artery although no large vessel occlusions IMPRESSION: No significant neck arterial stenoses Short segment 70% stenosis distal M1 segment right middle cerebral artery Markedly reduced caliber and opacification left posterior cerebral artery
--- NOTE | 2024-02-22 13:49 | PC.NURSE ---
called stroke alert- ct has a pt on the table for a abiopsy- they will call when ct is ready
[2024-02-22 13:56] LABS: Basophils % (Auto) 1 % (0-2.5); Eosinophils # (Auto) 0.2 Thou/mm3 (0.0-0.5); Eosinophils % (Auto) 3 % (0-10); Immature Granulocytes % (Auto) 0 % (0-0); Immature Granulocytes Auto 0.02 Thou/mm3 (0.00-0.00); Lymphocytes # (Auto) 1.1 Thou/mm3 (1.0-4.8); Lymphocytes % (Auto) 15 % (10-50); Mean Corpuscular Hemoglobin 31.1 pg (25.0-35.0); Mean Corpuscular Volume 89 fL (80-100); Monocytes # (Auto) 0.9 Thou/mm3 (0.0-0.8); Monocytes % (Auto) 12 % (0-12); Neutrophils % (Auto) 69 % (37-80); Nucleated Red Blood Cell % 0 /100 WBC (0); Platelet Count 256 Thou/mm3 (140-440); RDW Standard Deviation 46.5 fL (35.1-43.9); White Blood Count 7.2 Thou/mm3 (3.8-10.6)
[2024-02-22 14:07] LABS: INR 1.1 (0.9-1.3); Partial Thromboplastin Time 26.3 Seconds (22.0-36.0); Prothrombin Time 11.9 Seconds (9.0-12.2)
[2024-02-22 14:21] LABS: B-Type Natriuretic Peptide 160 pg/mL (0-100)
[2024-02-22 14:25] LABS: Alanine Aminotransferase 18 U/L (10-49); Albumin, Serum 4.1 gm/dL (3.4-4.8); Albumin/Globulin Ratio 1.8 (1.2-2.2); Alkaline Phosphatase 59 U/L (46-116); Anion Gap 8 (7-16); Aspartate Amino Transferase 18 U/L (0-34); BUN/Creatinine Ratio 20 Ratio (12-20); Bilirubin,Total 0.5 mg/dL (0.3-1.2); Blood Urea Nitrogen 22 mg/dL (9-23); Calcium 9.7 mg/dL (8.3-10.6); Calcium (Corrected) 9.7 mg/dL (8.5-10.1); Carbon Dioxide 25.8 mMol/L (20.0-31.0); Chloride 103 mMol/L (98-107); Creatinine (Component) 1.1 mg/dL (0.6-1.3); Globulin 2.3 gm/dL (2.3-3.5); Glucose 207 mg/dL (74-106); Lipase 29 U/L (12-53); Magnesium 1.9 mg/dL (1.6-2.6); Osmolality,Calculated 283 (275-295); Potassium 4.4 mMol/L (3.4-5.1); Sodium 137 mMol/L (136-145); Total Protein 6.4 gm/dL (5.7-8.2); Troponin I 0.021 ng/mL (0.0-0.045); eGFR > 60 See Note
--- NOTE | 2024-02-22 14:47 | ESCONSULT_ITS ---
Tele Neuro Consultation Consultation Date 02/22/24 Most Recent Vital Signs Last Vital Signs Temp 96.4 F L 02/22/24 14:38 Pulse 60 02/22/24 14:38 Resp 18 02/22/24 14:38 BP 151/77 H 02/22/24 14:38 Pulse Ox 99 02/22/24 14:38 O2 Del Method Room Air 02/22/24 14:38 Laboratory-Coagulation Panel PT 11.9 Seconds (9.0-12.2) 02/22/24 13:46 INR 1.1 (0.9-1.3) 02/22/24 13:46 APTT 26.3 Seconds (22.0-36.0) 02/22/24 13:46 Consultation Narrative [facility] TeleNeurology Consult Services Patient Name:???Chris Jorge Date of :???1935 Identification Number:??? Date of Service:???02/22/2024 13:42:13 Diagnosis:?I63.89 - Cerebrovascular accident (CVA) due to other mechanism (HCCC) Impression: ?88YOM with a PMHx of HTN, HLD, CAD, Parkinson's disease, Dementia, Afib not on AC, currently s/p 1 day of L cardiac stent, presenting with acute onset severe aphasia with slight L hemiplegia. In setting of aphasia and L sided symptoms, concern for multifocal embolic process; unfortunately, in setting of previous history and LKN being over 4.5hrs, as well as a recent cardiac stent less than 24hrs prior, the potential for significant complications from thrombolysis would far outweigh benefit. As such, would favor conservative management with Clopidogrel and ASA load now, and admission for stroke workup. Our recommendations are outlined below. Recommendations: ? Stroke/Telemetry Floor ? Neuro Checks ? Bedside Swallow Eval ? DVT Prophylaxis ? IV Fluids, Normal Saline ? Head of Bed 30 Degrees ? Euglycemia and Avoid Hyperthermia (PRN Acetaminophen) ? Bolus with Clopidogrel 300 mg bolus x1 and initiate dual antiplatelet therapy with Aspirin 81 mg daily and Clopidogrel 75 mg daily ?MRI brain wo con ?TTE w bubble study ?A1C, TSH, B12 ?Infectious and metabolic workup per primary team ?PT/OT/SALES DEVELOPMENT MANAGER Sign Out: ? Discussed with Emergency Department Provider Advanced Imaging: Advanced imaging has been ordered. Results pending. Metrics: Last Known Well: 02/22/2024 09:30:00 Dispatch Time: 02/22/2024 13:42:13 Arrival Time: 02/22/2024 12:27:00 Initial Response Time: 02/22/2024 13:43:15Symptoms: Acute onset speech issues, facial droop, decreased responsiveness. Initial patient interaction: 02/22/2024 13:45:15 NIHSS Assessment Completed: 02/22/2024 13:51:20Patient is not a candidate for Thrombolytic. Thrombolytic Medical Decision: 02/22/2024 13:51:21Patient was not deemed candidate for Thrombolytic because of following reasons: LKW outside 4.5 hr window. . I personally Reviewed the CT Head and it Showed diffuse cortical atrophy with no blood products or early ischemic changes Primary Provider Notified of Diagnostic Impression and Management Plan on: 02/22/2024 14:39:05 History of Present Illness:Patient is a 88 year old Male. Patient was brought by EMS for symptoms of Acute onset speech issues, facial droop, decreased responsiveness. 88YOM with a PMHx of DM2, Afib not on AC, HTN, HLD, CAD s/p stent placement 02/20, presenting with acute onset confusion, speech difficulty, and confusion. Per patient's daughter in law, who was at bedside, patient's LKN appx 0930 today; while getting a haircut patient stopped responding and communicating with his alan dresser, and was unable to respond when she was speaking to him. When patient did respond, he had significant difficulty getting words out and when he did speak, his responses made no sense. Per daughter in law, no hx of seizures or stroke. He was previously on eliquis yet was switched to Brillinta by his jewelry enameler. Past Medical History: ?Hypertension ?Diabetes Mellitus ?Hyperlipidemia ?Atrial Fibrillation ?Coronary Artery Disease ?There is no history of Stroke ?There is no history of Seizures Medications: No Anticoagulant use? Antiplatelet use:?Yes?Odalys Reviewed EMR for current medications Allergies:? Reviewed Social History: Patient Is: Drug Use: No Family History: There is no family history of premature cerebrovascular disease pertinent to this consultation ROS : 14 Points Review of Systems was performed and was negative except mentioned in HPI. Past Surgical History: There Is No Surgical History Contributory To Today?s Visit Examination: BP(139/76),?Pulse(60), 1A: Level of Consciousness - Alert; keenly responsive?+ 0 1B: Ask Month and Age - Aphasic?+ 2 1C: Blink Eyes & Squeeze Hands - Performs 1 Task?+ 1 2: Test Horizontal Extraocular Movements - Partial Gaze Palsy: Can Be Overcome?+ 1 3: Test Visual Workman - No Visual Loss?+ 0 4: Test Facial Palsy (Use Grimace if Obtunded) - Minor paralysis (flat nasolabial fold, smile asymmetry)?+ 1 5A: Test Left Arm Motor Drift - Drift, but doesn't hit bed?+ 1 5B: Test Right Arm Motor Drift - No Drift for 10 Seconds?+ 0 6A: Test Left Leg Motor Drift - No Drift for 5 Seconds?+ 0 6B: Test Right Leg Motor Drift - No Drift for 5 Seconds?+ 0 7: Test Limb Ataxia (FNF/Heel-Dc) - No Ataxia?+ 0 8: Test Sensation - Normal; No sensory loss?+ 0 9: Test Language/Aphasia - Severe Aphasia: Fragmentary Expression, Inference Needed, Cannot Identify Materials?+ 2 10: Test Dysarthria - Mild-Moderate Dysarthria: Slurring but can be understood?+ 1 11: Test Extinction/Inattention - No abnormality?+ 0 NIHSS Score:?9 NIHSS Free Text :?R gaze preference with L face asymmetry. Severe aphasia with difficulty naming, repeating, and occasional outbursts of answers not relevant to question Pre-Morbid Modified Meghan Scale:3 Points = Moderate disability; requiring some help, but able to walk without assistance Spoke with :?Dr. Headley This consult was conducted in real time using interactive audio and video technology. Patient was informed of the technology being used for this visit and agreed to proceed. Patient located in hospital and provider located at home/office setting. Patient is being evaluated for possible acute neurologic impairment and high probability of imminent or life-threatening deterioration. I spent total of 35 minutes providing care to this patient, including time for face to face visit via telemedicine, review of medical records, imaging studies and discussion of findings with providers, the patient and/or family. Dr Ok [place] [facility] For Inpatient follow-up with [facility] physician please call [facility] at . As we are not an outpatient service for any post hospital discharge needs please contact the hospital for assistance. If you have any questions for the [facility] physicians or need to reconsult for clinical or diagnostic changes please contact us via [facility] at .
[2024-02-22] MEDS: CLOPIDOGREL BISULFATE 75 MG TABLET 300 MG PO (16:02)
[2024-02-22] MEDS: Aspirin 325 MG TABLET PO (16:10)
--- NOTE | 2024-02-22 16:25 | ECHO_ITS ---
Transthoracic Echo Report Ht (in): 70 Wt (lb): 160 Exam Location: Cardiothoracic Physiotherapist Status: Inpatient Teletype Or [place] Keyboard Operator: Renata Dennis Indications: Procedure Performed: BP: 142 / 75 HR: 60 Technical Quality: Fair Contrast: Agitated Saline Total Dose (mL): MEASUREMENTS (Male / Female) Normal Values 2D ECHO LV Diastolic Diameter PLAX 4.3 cm 4.2 - 5.9 / 3.9 - 5.3 cm LV Systolic Diameter PLAX 3.1 cm IVS Diastolic Thickness 1.2 cm 0.6 - 1.0 / 0.6 - 0.9 cm LVPW Diastolic Thickness 1.0 cm 0.6 - 1.0 / 0.6 - 0.9 cm LV Relative Wall Thickness 0.5 LVOT Diameter 2.0 cm LA Volume Index 28.0 cm?/m? 16 - 28 cm?/m? Ascending Aorta Diameter 3.9 cm M-MODE Aortic Root Diameter MM 3.8 cm LA Systolic Diameter MM 4.4 cm LA Ao Ratio MM 1.2 AV Cusp Separation MM 2.5 cm DOPPLER AV Peak Velocity 92.6 cm/s AV Peak Gradient 3.4 mmHg AV Mean Gradient 2.0 mmHg AV Velocity Time Integral 20.4 cm LVOT Peak Velocity 88.7 cm/s LVOT Peak Gradient 3.1 mmHg LVOT Velocity Time Integral 17.9 cm LVOT Cardiac Index 1780.6 cm?/min?m? AV Area Cont Eq vti 2.8 cm? AV Area Cont Eq pk 3.0 cm? MV Peak Velocity 88.9 cm/s MV Peak Gradient 3.2 mmHg MV Mean Velocity 52.5 cm/s MV Mean Gradient 1.0 mmHg MV Area PHT 3.0 cm? MR Peak Velocity 456.5 cm/s MR Peak Gradient 83.4 mmHg Mitral E Point Velocity 90.2 cm/s Mitral A Point Velocity 4.4 cm/s Mitral E to A Ratio 20.6 LV E' Lateral Velocity 9.9 cm/s Mitral E to LV E' Lateral Ratio 9.1 LV E' Septal Velocity 7.2 cm/s Mitral E to LV E' Septal Ratio 12.6 TR Peak Velocity 215.0 cm/s TR Peak Gradient 18.5 mmHg FINDINGS Left Ventricle Normal left ventricular size, wall thickness, systolic function with no obvious regional wall motion abnormalities. The ejection fraction is visually estimated at 55-60%. Right Ventricle The right ventricle is normal in size and systolic function. The estimated right ventricular systoli c pressure, 24mmHg. RAP 5. Pacing wire present. Left Atrium The left atrium is normal by two-dimensional, color flow and Doppler imaging with no structural abnormalities, no thrombus formation present. Right Atrium The right atrium is normal by two-dimensional imaging, color flow and Doppler imaging with no struct ural abnormalities, no thrombus formation present. Atrial Septum The interatrial septum appears normal with no evidence of a shunt. Aorta The aorta is normal by two-dimensional, color flow and Doppler interrogation. Mitral Valve The mitral valve is normal by two-dimensional, color flow and Doppler interrogation. There is mild mitral valve regurgitation. Aortic Valve The aortic valve is trileaflet and normal by two-dimensional, color flow and Doppler interrogation. There is mild aortic valve regurgitation. Tricuspid Valve The tricuspid valve is normal by two-dimensional, color flow and Doppler interrogation. There is tra ce tricuspid valve regurgitation. Pulmonic Valve There is no significant pulmonic valve regurgitation. Vessels The pulmonary artery appears normal. The inferior vena cava pulmonary and hepatic veins appear festus l. Pericardium The pericardium is normal by two-dimensional imaging. There is no significant pericardial effusion. CONCLUSIONS Negative bubble study. No evidence of PFO or ASD. Normal LV size and function. Estimated EF 55-60% Normal RV size and function. Pacing wire present. Mild MR, AI. Trace TR. Nohemy Murguia (Electronically Signed) Final Date: 24 February 2024 12:49
--- NOTE | 2024-02-22 16:35 | ESHP_ITS ---
Documentation for date of: 02/22/24 HPI History of Present Illness Chief complaint: Slurred speech History of present illness: Patient unable to provide history history taken from daughter who is at the bedside 88-year-old male with past medical history of hypertension, CAD status post stents x 5, dementia, Parkinson's disease, diabetes, prostate cancer status post TURP procedure, atrial fibrillation presented to the ED from [facility] due to incomprehensible speech and slurred speech. Per daughter who was at bedside patient had stent procedure yesterday late afternoon was slightly groggy after procedure. This morning around 9:30 AM when the daughter received a call from the patients caregiver from [facility] stating that the patient was altered not oriented to time person or place and was having difficulty speaking and was having blank stare episodes. Around 11 AM daughter saw the patient and noticed the patient was having word salad and was slurring his words. Admitted for stroke workup. ED course: Vitals on arrival within normal limits, labs significant for glucose 207, BNP 160, rest of labs within normal limits. Chest x-ray showed mild vascular congestion. Head CT show Negative for acute hemorrhage, mass effect or midline shift. EKG showed abnormal rhythm PMHx: hypertension, CAD status post stents x 5, dementia, Parkinson's disease, diabetes, prostate cancer status post TURP procedure, atrial fibrillation SxHx: 2 cardiac stents in 2009, 2 cardiac stents 2023, angioplasty, 1 cardiac stent 02/22/2024, TURP procedure, pacemaker Social Hx: No smoking, no alcohol use, no illicit drug use including THC FHx: Unknown Review of Systems Review of Systems ROS Unobtainable: unobtainable due to medical condition Exam Vital Signs Temp Pulse Resp BP Pulse Ox O2 Del Method 97.6 F 60 19 135/77 H 100 Room Air 02/22/24 16:23 02/22/24 16:23 02/22/24 16:23 02/22/24 16:23 02/22/24 16:23 02/22/24 16:23 Narrative Exam Physical Exam GENERAL: NAD HEENT: Moist mucosa. Eyes open, symmetrical, & clear CARDIO: Heart RRR, no obvious murmurs PULM: No noted coughing/dyspnea CTA B/L, no R/W/R GI: Abdomen soft, nondistended, no pain on palpation. BSx4 SKIN/MSK/EXT: No wounds/rashes/edema/amputations, no pain on palpation. Pedal pulses present B/L NEURO: 1A: Level of Consciousness - Alert; keenly responsive?+ 0 1B: Ask Month and Age - Aphasic?+ 2 1C: Blink Eyes & Squeeze Hands - Performs 1 Task?+ 1 2: Test Horizontal Extraocular Movements - Partial Gaze Palsy: Can Be Overcome?+ 1 3: Test Visual Workman - No Visual Loss?+ 0 4: Test Facial Palsy (Use Grimace if Obtunded) - Minor paralysis (flat nasolabial fold, smile asymmetry)?+ 1 5A: Test Left Arm Motor Drift - Drift, but doesn't hit bed?+ 1 5B: Test Right Arm Motor Drift - No Drift for 10 Seconds?+ 0 6A: Test Left Leg Motor Drift - No Drift for 5 Seconds?+ 0 6B: Test Right Leg Motor Drift - No Drift for 5 Seconds?+ 0 7: Test Limb Ataxia (FNF/Heel-Dc) - No Ataxia?+ 0 8: Test Sensation - Normal; No sensory loss?+ 0 9: Test Language/Aphasia - Severe Aphasia: Fragmentary Expression, Inference Needed, Cannot Identify Materials?+ 2 10: Test Dysarthria - Mild-Moderate Dysarthria: Slurring but can be understood?+ 1 11: Test Extinction/Inattention - No abnormality?+ 0 NIHSS Score:?9 Results: Labs 02/23/24 06:14 02/23/24 06:14 Labs: Short CBC 02/22/24 Range/Units 13:46 WBC 7.2 (3.8-10.6) Thou/mm3 Hgb 14.0 (13.5-16.0) g/dL Hct 40.0 L (41.0-53.0) % Plt Count 256 D (140-440) Thou/mm3 BMP 02/22/24 13:46 Sodium 137 Potassium 4.4 D Chloride 103 Carbon Dioxide 25.8 BUN 22 Creatinine 1.1 Glucose 207 H D Calcium 9.7 Cardiac Enzymes 02/22/24 Range/Units 13:46 Troponin I 0.021 (0.0-0.045) ng/mL Liver Function 02/22/24 Range/Units 13:46 Total Bilirubin 0.5 (0.3-1.2) mg/dL AST 18 (0-34) U/L ALT 18 (10-49) U/L Alkaline Phosphatase 59 (46-116) U/L Albumin 4.1 (3.4-4.8) gm/dL Quality Measures Quality Measures stroke Suspected type of Stroke: Unknown at this time Tenecteplase given: Reason(s) Tenecteplase not given: Outside the time window not given Rehab services: PT evaluation ordered VTE Prophylaxis: not ordered Antithrombotic by day 2:: refused Statin ordered: >75 y/o moderate or high intensity dose Anticoagulation ordered for A-fib or flutter (current or hx): not indicated Advance care planning discussed with:: patient and child Medications Home Medications and Allergies Home Medications ?Medication ?Instructions ?Recorded ?Confirmed ?Type aspirin 81 mg tablet,delayed 81 mg PO QDAY 06/20/23 02/21/24 History release insulin glargine 100 unit/mL (3 20 unit subcut DAILY 06/20/23 02/21/24 History mL) subcutaneous pen (Lantus Solostar U-100 Insulin) ramipril 2.5 mg tablet 2.5 mg PO QDAY 06/20/23 02/21/24 History sitagliptin phosphate 50 mg tablet 50 mg PO QDAY 06/20/23 02/21/24 History (Januvia) metformin 500 mg tablet 500 mg PO BID 01/17/24 02/21/24 History nateglinide 60 mg tablet 60 mg PO BID 01/17/24 02/21/24 History Allergies Allergy/AdvReac Type Severity Reaction Status Date / Time No Known Allergies Allergy Verified 01/13/24 16:14 Visit Medications Acetaminophen (Acetaminophen 325 Mg Tablet) 650 mg PO Q6H PRN PRN Reason: Fever >100.5 Stop: 03/23/24 16:24 Acetaminophen (Acetaminophen 325 Mg Tablet) 650 mg PO Q6H PRN PRN Reason: PAIN SCALE 1-3 (mild Stop: 03/23/24 16:24 Aspirin (Aspirin Ec 81 Mg Tabec) 81 mg PO QDAY [facility] Stop: 03/24/24 08:59 Atorvastatin Calcium (Atorvastatin Calcium 20 Mg Tablet) 80 mg PO HS [facility] Stop: 03/23/24 20:59 Clopidogrel Bisulfate (Clopidogrel Bisulfate 75 Mg Tablet) 75 mg PO QDAY [facility] Stop: 03/24/24 08:59 Docusate Sodium (Docusate Sod 100 Mg Capsule) 100 mg PO QDAY [facility]; Protocol Stop: 03/24/24 08:59 Sodium Chloride (Ns) 1,000 mls @ 75 mls/hr IV .[id number] [facility] Stop: 03/24/24 12:29 Ondansetron HCl (Ondansetron Inj 2 Mg/Ml Inj 2 Ml) 4 mg IV Q6H PRN; Protocol PRN Reason: NAUSEA OR VOMITING Stop: 03/23/24 16:24 Discontinued Medications Aspirin (Aspirin 300 Mg Supp) 300 mg OH X1 ONE Stop: 02/22/24 14:40 Last Admin: 02/22/24 16:10 Dose: Not Given Aspirin (Aspirin 325 Mg Tablet) 325 mg PO X1 ONE Stop: 02/22/24 16:10 Last Admin: 02/22/24 16:10 Dose: 325 mg Clopidogrel Bisulfate (Clopidogrel Bisulfate 75 Mg Tablet) 300 mg PO X1 ONE Stop: 02/22/24 14:40 Last Admin: 02/22/24 16:02 Dose: 300 mg Assessment & Plan Plan 88-year-old male with past medical history of hypertension, CAD status post stents x 5, dementia, Parkinson's disease, diabetes, prostate cancer status post TURP procedure, atrial fibrillation presented to the ED from [facility] due to incomprehensible speech and slurred speech. Admitted for stroke workup #Stroke rule out This morning 02/22/2024 around 9:30 AM, daughter received a call from caregiver stating that the patient was altered not oriented to time, person or place and was having difficulty speaking. Patient was also noted to have episodes of blank stares required to be shaken to respond Around 11 AM daughter saw the patient and noticed the patient was having word salad and was slurring his words. On examination patient is having word salad but is understanding CT head was done and showed Negative for acute hemorrhage, mass effect or midline shift. Head/neck CTA showed No significant neck arterial stenoses Short segment 70% stenosis distal M1 segment right middle cerebral artery Markedly reduced caliber and opacification left posterior cerebral artery NIHSS: 9 on admission In the ED patient was given Bolus with Clopidogrel 300 mg bolus x1 - pending MRI brain - pending Echo with bubble study - High intensity statin - aspirin 81mg - plavix 75mg - HOB >30 degrees - Neuro Checks q4h - Bedside Swallow Eval - NS @ 75cc/hr - HOB>30 - Aspiration precautions - f/u A1C, TSH, B12 - pending speech therapy - pending physical therapy eval - Neurology, Dr. Lozano consulted, appreciate recommendations #Dementia #Parkinson Disease Patient has hx of parkinsons, dementia, however daughter states patient does not take any medications for these diangoses Was on medication at one point on time however patient declined and was discontinued - f/u Neuro recommendations ? #Hypertension #CAD s/p stents #Atrial fibrillation - resume anti-hypertensives when appropiate - Aspirin + Plavix - Cardiology, Dr. Andersen, appreciate recommendations #Diabetes - f/u A1c - ssi - hypoglycemic protocol in place #Hx of prostate cancer s/p TURP - monitor for now Case discussed with my senior Dr. Wolf PGY-[address] Roshni Barba MD PGY-1 Disposition: Telemetry Fluids: NS Feeding: NPO till evaluation from speech Gastric Ulcer prophylaxis: none CODE STATUS: DNR Senior resident attestation: Patient evaluated and examined at the bedside, plan of care discussed with rest of the team including my attending physician, except as noted. Patient is an 88-year-old male with past medical hypertension, CAD status post recent PCI in December and February 2024, Parkinson disease and prostate cancer and diabetes, history of A-fib status post pacemaker, who was brought in to the ER for altered mental status and disorganized speech, described as word salad by his who was present at the bedside contributed the H&P stroke alert was called and CT was done which was negative for hemorrhage, teleneurologist recommended aspirin and clopidogrel loading dose due to concern for stroke, of note patient was on aspirin and Brilinta following PCI patient had been taking Eliquis previously but stopped following PCI and continued only on aspirin and Brilinta. Anatomic Pathology Manager Dr. Ravi Andersen was consulted, who recommended starting patient on Eliquis from [facility]. Patient will be scheduled for TTE tomorrow. Maryann PGY2 Attending Provider Attestation/Addendum Teresita Monterroso, DO, attest that I was physically present for the [place] portions of the service and evaluated the patient with the resident and I reviewed and discussed the case with the resident and agree with the resident's findings and plans of care as documented above Patient is an 88-year-old male with past medical history of hypertension, CAD status post 5 stents, dementia, Parkinson's disease, type II DM and prostate cancer and A-fib who was brought to ED after he was noted to be more confused with slurred speech. Patient underwent a PCI yesterday and was thought to be more confused due to having undergone some sedation similar to his previous experiences as well per family. However, family was called from patient's living facility regarding patient's change in demeanor with a blank stare and difficulty with speech. A stroke alert was called from ED and a CT head was negative for any acute intracranial findings. Patient is able to comprehend speech, but is unable to answer questions appropriately with aphasia. Patient is able to move all extremities with muscle strength 4- /5. Teleneuro was consulted from ED and recommends aspirin and Plavix. However, patient had been placed on aspirin Brilinta due to stent placement yesterday. Will also call cardiology regarding dual antiplatelet therapy. Will admit patient to telemetry for further workup and medical management of acute CVA. Will consult neurology and obtain MRI and echocardiogram. PT and ST to be consulted as well. Labs are otherwise unremarkable.
--- NOTE | 2024-02-22 16:41 | ESCONSULT_ITS ---
<Statement entered by Nay Andersen MD - 02/23/24 11:39> The patient is very well-known to me 88-year-old male who recently had multivessel stent placement was not double antiplatelet drug therapy dual and aspirin and Brilinta following stent placement yesterday Eliquis was temporarily stopped because of bleeding risk but patient appears to develop multiple embolic phenomenon with speech disturbance both comprehension and expressive aphasia deemed not to be candidate for thrombolytic because high risk of bleeding recent PCI and also artery appears to be not totally occluded by CTA recommended stopping Brilinta started on Plavix and aspirin low-dose will also restart Eliquis 2.5 mg twice daily. Evaluated the patient with Dr. Koby Cotton PGY2 continue to monitor the patient will get a transesophageal echo tomorrow HPI Data of Consult Primary Care Provider: Yusuf Martin MD Consult Narrative History of present illness: Patient is an 88-year-old male with past medical history of hypertension, CAD status post stents x 5, dementia, Parkinson's disease, diabetes, prostate cancer status post TURP procedure, atrial fibrillation, and recent cardiac stent on 02-21-2024 that presented to the ED with signs and symptoms of stroke with slurred speech and left-sided hemiparesis. Cardiology consulted for recent catheterization and close monitoring due to past cardiac history. cc:: cc: Exam Vital Signs Temp Pulse Resp BP Pulse Ox O2 Del Method 97.6 F 60 19 135/77 H 100 Room Air 02/22/24 16:23 02/22/24 16:23 02/22/24 16:23 02/22/24 16:23 02/22/24 16:23 02/22/24 16:23 Narrative Exam GENERAL: Alert but unable to assess orientation. Not in acute distress. Resting comfortably in bed. HEART: Regular rate and rhythm, no murmurs, rubs or gallops. LUNGS: Clear to auscultation bilaterally with symmetrical chest rise. No labored breathing or intercostal retraction. ABDOMEN: Soft, non-tender, no guarding or rebound tenderness. There are no abnormal masses palpated. EXTREMITIES: Non-tender. No edema. SKIN: Warm and dry, no jaundice or rashes noted. NEURO: Equal upper extremity strength bilaterally. No drooping noted. Patient appears to understand and follow commands but mumbles incomprehensible words. Results Labs 02/22/24 13:46 02/22/24 13:46 Labs: Short CBC 02/22/24 Range/Units 13:46 WBC 7.2 (3.8-10.6) Thou/mm3 Hgb 14.0 (13.5-16.0) g/dL Hct 40.0 L (41.0-53.0) % Plt Count 256 D (140-440) Thou/mm3 BMP 02/22/24 13:46 Sodium 137 Potassium 4.4 D Chloride 103 Carbon Dioxide 25.8 BUN 22 Creatinine 1.1 Glucose 207 H D Calcium 9.7 Cardiac Enzymes 02/22/24 Range/Units 13:46 Troponin I 0.021 (0.0-0.045) ng/mL Liver Function 02/22/24 Range/Units 13:46 Total Bilirubin 0.5 (0.3-1.2) mg/dL AST 18 (0-34) U/L ALT 18 (10-49) U/L Alkaline Phosphatase 59 (46-116) U/L Albumin 4.1 (3.4-4.8) gm/dL Quality Measures Quality Measures stroke Suspected type of Stroke: Acute Ischemic Tenecteplase given: > 60 min of arrival Rehab services: PT evaluation ordered and Speech Language Pathology eval ordered VTE Prophylaxis: pharmaceutical Antithrombotic by day 2:: not indicated (describe) Statin ordered: >75 y/o moderate or high intensity dose Anticoagulation ordered for A-fib or flutter (current or hx): ordered Advance care planning discussed with:: patient and other Medications Home Medications and Allergies Home Medications ?Medication ?Instructions ?Recorded ?Confirmed ?Type aspirin 81 mg tablet,delayed 81 mg PO QDAY 06/20/23 02/21/24 History release insulin glargine 100 unit/mL (3 20 unit subcut DAILY 06/20/23 02/21/24 History mL) subcutaneous pen (Lantus Solostar U-100 Insulin) ramipril 2.5 mg tablet 2.5 mg PO QDAY 06/20/23 02/21/24 History sitagliptin phosphate 50 mg tablet 50 mg PO QDAY 06/20/23 02/21/24 History (Januvia) metformin 500 mg tablet 500 mg PO BID 01/17/24 02/21/24 History nateglinide 60 mg tablet 60 mg PO BID 01/17/24 02/21/24 History Allergies Allergy/AdvReac Type Severity Reaction Status Date / Time No Known Allergies Allergy Verified 01/13/24 16:14 Visit Medications Acetaminophen (Acetaminophen 325 Mg Tablet) 650 mg PO Q6H PRN PRN Reason: Fever >100.5 Stop: 03/23/24 16:24 Acetaminophen (Acetaminophen 325 Mg Tablet) 650 mg PO Q6H PRN PRN Reason: PAIN SCALE 1-3 (mild Stop: 03/23/24 16:24 Aspirin (Aspirin Ec 81 Mg Tabec) 81 mg PO QDAY [facility] Stop: 03/24/24 08:59 Atorvastatin Calcium (Atorvastatin Calcium 20 Mg Tablet) 80 mg PO HS [facility] Stop: 03/23/24 20:59 Clopidogrel Bisulfate (Clopidogrel Bisulfate 75 Mg Tablet) 75 mg PO QDAY [facility] Stop: 03/24/24 08:59 Dextrose (Dextrose 50%-Water Inj 50 Ml Syringe) 50 ml IV Q15MIN PRN PRN Reason: BG <50 OR BG <70 & pt unresponsive Stop: 03/23/24 16:35 Dextrose (Dextrose 50%-Water Inj 50 Ml Syringe) 25 ml IV Q15MIN PRN PRN Reason: BG 50-70 responsive npo pt Stop: 03/23/24 16:35 Docusate Sodium (Docusate Sod 100 Mg Capsule) 100 mg PO QDAY [facility]; Protocol Stop: 03/24/24 08:59 Glucagon (Glucagon Inj 1 Mg Vial) 1 mg IM Q15MIN PRN PRN Reason: BG <70, and no IV access Sodium Chloride (Ns) 1,000 mls @ 75 mls/hr IV .[id number] [facility] Stop: 03/24/24 12:29 Insulin Human Lispro (Insulin Lispro (Admelog) 1 Unit/0.01 Ml Unit) 0 unit SC AC [facility]; Protocol Stop: 03/23/24 16:59 Ondansetron HCl (Ondansetron Inj 2 Mg/Ml Inj 2 Ml) 4 mg IV Q6H PRN; Protocol PRN Reason: NAUSEA OR VOMITING Stop: 03/23/24 16:24 Discontinued Medications Aspirin (Aspirin 300 Mg Supp) 300 mg VT X1 ONE Stop: 02/22/24 14:40 Last Admin: 02/22/24 16:10 Dose: Not Given Aspirin (Aspirin 325 Mg Tablet) 325 mg PO X1 ONE Stop: 02/22/24 16:10 Last Admin: 02/22/24 16:10 Dose: 325 mg Clopidogrel Bisulfate (Clopidogrel Bisulfate 75 Mg Tablet) 300 mg PO X1 ONE Stop: 02/22/24 14:40 Last Admin: 02/22/24 16:02 Dose: 300 mg Assessment & Plan Plan Patient is an 88-year-old male with past medical history of hypertension, CAD status post stents x 5, dementia, Parkinson's disease, diabetes, prostate cancer status post TURP procedure, atrial fibrillation, and recent cardiac stent on 02-21-2024 that presented to the ED with signs and symptoms of stroke with slurred speech and left-sided hemiparesis. Cardiology consulted for recent catheterization and close monitoring due to past cardiac history. #CAD s/p PCI #History of A-fib #Hypertension Patient stent placed yesterday. Now presenting with strokelike symptoms Recommend getting cardiac echo with bubble Start patient on aspirin 81 mg and Plavix 75 mg Start patient on Eliquis 2.5 mg twice daily Keep potassium above 4 and magnesium above 2 Will schedule patient for SRUTHI tomorrow, please keep n.p.o. #Stroke workup #Diabetes mellitus #Dementia #Prostate cancer #History of Parkinson's disease Continue management per primary team Case discussed with attending industrial custodian Dr. Ganesh Cotton MD PGY3.
[2024-02-22 17:07] LABS: Glucose Estimated Average 192 mg/dL (80-131); Hemoglobin A1C 8.3 % Hgb (4.8-6.0)
[2024-02-22 17:18] LABS: Thyroid Stimulating Hormone 1.55 uIU/mL (0.55-4.78); Vitamin B12 264 pg/mL (211-911)
[2024-02-22] MEDS: SODIUM CHLORIDE 0.9% 1000 ML 1,000 ML 75 ML IV (18:59)
[2024-02-22] MEDS: INSULIN LISPRO (AdmeLOG) 1 UNIT/0.01 ML UNIT SC (18:59)
[2024-02-22] MEDS: APIXABAN 2.5 MG TABLET PO (21:04)
--- NOTE | 2024-02-22 23:46 | ESPR_ITS ---
Documentation for date of: 02/22/24 Subjective Subjective Interval history: Patient was seen in telemetry today at the bedside. Continues to have mixed aphasia. Exam - Neurology Vital Signs Temp Pulse Resp BP Pulse Ox O2 Del Method 97.7 F 64 24 H 152/79 H 97 Room Air 02/22/24 20:00 02/22/24 20:00 02/22/24 20:00 02/22/24 20:00 02/22/24 20:00 02/22/24 20:00 Narrative Exam GENERAL APPEARANCE: Well hydrated, well-nourished in no acute distress. HEENT: Normocephalic, atraumatic, extraocular movements intact. Pupils: Equal reacting to light NECK: Supple, no JVD or bruits. CARDIOVASULAR: Heart: S1, S2 heard, regular without S3-S4 or murmur no rubs or gallops. LUNGS/CHEST: Clear to auscultation bilaterally. No rails, rhonchi, or wheezing. Normal inspection. ABDOMEN: Soft, nontender, with normal bowel sounds. No pulsatile masses. No rebound, rigidity, or guarding. Normal inspection and palpation. EXTREMITIES: Normal inspection and palpation. No edema, clubbing or cyanosis. SKIN: Warm and dry without rashes. Normal inspection. MUSCULOSKELETAL: No cervical, thoracic, lumbar or midline bony tenderness. Normal inspection. NEURO: Alert, awake and oriented x1. Cranial nerves: II through XII grossly intact with exception of visual field defect on the right. Speech and language: Significant mixed aphasia. Motor system: Tone and bulk: Normal: Strength: moves all 4 extremities; No pronator drift noted. Deep tendon reflexes: 2+ bilaterally symmetrical. Plantar reflex: Downgoing bilaterally. Sensory system: Intact to pinprick sensation bilaterally. Rest of exam: Limited. no signs of meningeal irritation noted. PSYCHIATRIC: Normal mood and affect. Objective Labs 02/25/24 04:37 02/25/24 04:37 Labs: Laboratory Results - last 24 hr 02/22/24 02/22/24 13:46 16:43 WBC 7.2 RBC 4.50 Hgb 14.0 Hct 40.0 L MCV 89 MCH 31.1 MCHC 35.0 RDW Std Deviation 46.5 H Plt Count 256 D Neut % (Auto) 69 Lymph % (Auto) 15 [place] % (Auto) 12 Eos % (Auto) 3 Baso % (Auto) 1 Neut # (Auto) 5.0 Lymph # (Auto) 1.1 [place]shaw # (Auto) 0.9 H Eos # (Auto) 0.2 Baso # (Auto) 0.0 Immature Gran # (Auto) 0.02 H Absolute Nucleated RBC 0.00 Immature Gran % 0 Nucleated RBC % 0 PT 11.9 INR 1.1 APTT 26.3 Sodium 137 Potassium 4.4 D Chloride 103 Carbon Dioxide 25.8 Anion Gap 8 BUN 22 Creatinine 1.1 Estim Creat Clear Calc Not Performed. eGFR > 60 BUN/Creatinine Ratio 20 [address]ucose [address] Glu mg/dL 192 H Hemoglobin A1c 8.3 H Calculated Osmolality 283 Calcium 9.7 Corrected Calcium 9.7 Magnesium 1.9 Total Bilirubin 0.5 AST 18 ALT 18 Alkaline Phosphatase 59 Troponin I 0.021 B-Natriuretic Peptide 160 H Total Protein 6.4 Albumin 4.1 Globulin 2.3 Albumin/Globulin Ratio 1.8 Lipase 29 Vitamin B12 264 TSH 1.55 Assessment & Plan Assessment and plan (1) Acute CVA (cerebrovascular accident): Status: Acute Assessment and plan: Presenting with mixed aphasia without any motor or sensory symptoms. Loaded with Plavix by [employer]. Workup: CT: negative for acute intracranial abnormality, CTA: short segment 70% stenosis distal M1 segment right middle cerebral artery Markedly reduced caliber and opacification left posterior cerebral artery; agreed with continuing ASA, Plavix and Eliquis low dose Follow-up with the SRUTHI continue to monitor for any hgic transformation FU with MRI brain. continue with statin as the lipids are not controlled. (2) Coronary artery disease: Status: Chronic Assessment and plan: Stable s/p PCI yesterday (3) Diabetes mellitus: Status: Chronic Assessment and plan: needs better control, A1C: 8.3 (4) Vascular dementia: Status: Acute Assessment and plan: stable. hard to assess from language deficit from the new stroke. Follow-up with EEG
[2024-02-23] VITALS (24 sets, daily range): BP systolic 98–184; BP diastolic 44–88; PULSE 60–66; RESP 10–97; TEMP 36.1–36.6; O2SAT 91–100
[2024-02-23 07:10] LABS: Basophils # (Auto) 0.1 Thou/mm3 (0.0-0.2); Basophils % (Auto) 1 % (0-2.5); Eosinophils # (Auto) 0.2 Thou/mm3 (0.0-0.5); Eosinophils % (Auto) 2 % (0-10); Hematocrit 39.9 % (41.0-53.0); Immature Granulocytes % (Auto) 0 % (0-0); Immature Granulocytes Auto 0.03 Thou/mm3 (0.00-0.00); Lymphocytes # (Auto) 1.1 Thou/mm3 (1.0-4.8); Lymphocytes % (Auto) 13 % (10-50); Mean Corpuscular HGB Conc 35.1 g/dl (31.0-37.0); Mean Corpuscular Hemoglobin 31.5 pg (25.0-35.0); Mean Corpuscular Volume 90 fL (80-100); Monocytes # (Auto) 0.8 Thou/mm3 (0.0-0.8); Monocytes % (Auto) 10 % (0-12); Neutrophils % (Auto) 74 % (37-80); Nucleated Red Blood Cell % 0 /100 WBC (0); Platelet Count 283 Thou/mm3 (140-440); RDW Standard Deviation 47.2 fL (35.1-43.9); Red Blood Count 4.45 Miln/mm3 (4.50-5.90)
[2024-02-23 07:18] LABS: Alanine Aminotransferase 15 U/L (10-49); Albumin, Serum 3.9 gm/dL (3.4-4.8); Albumin/Globulin Ratio 1.7 (1.2-2.2); Alkaline Phosphatase 58 U/L (46-116); Anion Gap 10 (7-16); Aspartate Amino Transferase 24 U/L (0-34); BUN/Creatinine Ratio 15 Ratio (12-20); Bilirubin,Total 0.7 mg/dL (0.3-1.2); Blood Urea Nitrogen 15 mg/dL (9-23); Calcium 9.5 mg/dL (8.3-10.6); Calcium (Corrected) 9.6 mg/dL (8.5-10.1); Carbon Dioxide 25.2 mMol/L (20.0-31.0); Cardiac Risk Estimate 4.7 RATIO (4.0-6.7); Chloride 104 mMol/L (98-107); Cholesterol 177 mg/dL (132-200); Globulin 2.3 gm/dL (2.3-3.5); Glucose 153 mg/dL (74-106); HDL Cholesterol 38 mg/dL (40-60); LDL Cholesterol,Calculated 124 mg/dL (0-130); Magnesium 1.6 mg/dL (1.6-2.6); Osmolality,Calculated 281 (275-295); Potassium 4.6 mMol/L (3.4-5.1); Sodium 139 mMol/L (136-145); Thyroid Stimulating Hormone 1.23 uIU/mL (0.55-4.78); Total Protein 6.2 gm/dL (5.7-8.2); Triglycerides 74 mg/dL (30-150); eGFR > 60 See Note
--- NOTE | 2024-02-23 07:46 | ECHO_ITS ---
Transesophageal Echo Report Ht (in): 70 Wt (lb): 160 Exam Location: [facility] Status: Inpatient Video Clerk: Renata Dennis Indications: Procedure Performed: BP: 142 / 75 HR: 60 Contrast: Agitated Saline Technical Quality: Fair Total Dose(mL): Medications The patient is medicated with 3mg of intravenous Versed and 75mcg of intraveous Fentanyl. Complications There are no complications prior to, during or in recovery from the transesophageal echocardiogram. FINDINGS Left Ventricle Normal left ventricular size, wall thickness, systolic function with no obvious regional wall motion abnormalities. The ejection fraction is visually estimated at 55-60 %. Right Ventricle The right ventricle is normal in size and systolic function. Pacing wire present. Left Atrium The left atrium is normal. Right Atrium The right atrium is normal. Atrial Septum The interatrial septum appears normal with no evidence of a shunt. Aorta The aorta is normal by two-dimensional, color flow and Doppler interrogation. Mitral Valve The mitral valve is normal. There is mild mitral valve regurgitation. Aortic Valve The aortic valve is trileaflet and normal. There is mild aortic valve regurgitation. Tricuspid Valve The tricuspid valve is normal. There is trace tricuspid valve regurgitation. Pulmonic Valve here is no significant pulmonic valve regurgitation. Vessels The pulmonary artery appears normal. The inferior vena cava pulmonary and hepatic veins appear festus l. Pericardium The pericardium is normal by two-dimensional imaging. There is no significant pericardial effusion. CONCLUSIONS Indication: Stroke Negative bubble study. No evidence of PFO/ ASD or LA/RIMMA thrombus. Normal LV size and function. Estimated EF 55-60% Normal RV size and function. Pacing wire present. Mild MR, AI. Trace TR. Sameer Damon (Electronically Signed) Final Date: 23 February 2024 18:53
--- NOTE | 2024-02-23 09:50 | PCS.ST ---
Swallow Eval completed. See report for details. Speech/Language Eval initiated. Dysphagia [address] services
[2024-02-23] MEDS: PANTOPRAZOLE INJ 40 MG VIAL IVP (09:55)
--- NOTE | 2024-02-23 11:14 | RESP.EEG ---
EEG COMPLETED AND READY FOR REVIEW
--- NOTE | 2024-02-23 12:09 | PD.RESCONSUL ---
HPI Data of Consult Requesting Physician: Teresita Barakat DO Admitting Provider: Teresita Barakat DO Attending Provider: Teresita Barakat DO Primary Care Provider: Yusuf Martin MD Consult Narrative History of present illness: Chris is an 88-year-old male with past medical history of hypertension, CAD status post stents x 5, dementia, Parkinson's disease, diabetes, prostate cancer status post TURP procedure, atrial fibrillation s/p pacemaker, and recent cardiac stent on 02-21-2024 who comes to [facility] on February 22, 2024 for an evaluation of aphasia and facial droop. Patient is a known patient of Dr. Andersen who had recently did left cardiac catheterization on February 21, 2024 and PCI as he found 95% stenosis of the posterolateral branch of the RCA with stent placement 2.5 x 16 stent. He also found widely patent stent involving proximal, mid and distal left anterior descending artery and no restenosis. Patient was recommended to continue aspirin and Plavix and was discharged the same day. The next day he began to have aphasia and facial droop. He went to the ER and teleneuro was consulted in which they had given the patient an NIHSS score of 9 and recommended continue with dual antiplatelet therapy and to get TTE with bubble study to rule out any stroke or hemorrhage. Head CT showed no mass effect, hemorrhage or midline shift. CTA neck showed no significant neck arterial stenosis, short segment 70% stenosis distal M1 segment R MCA, markedly reduced caliber and opacification left posterior cerebral artery. EKG was electronically paced as patient has pacemaker paced at 60 bpm. Patient also started on Eliquis 2.5 mg twice daily. For further evaluation patient to undergo SRUTHI. cc:: cc: Teresita Barakat DO Review of Systems Review of Systems Narrative Review of Systems: Limited at this time due to patient's baseline at this time. Exam Vital Signs Temp Pulse Resp BP Pulse Ox O2 Del Method 97.8 F 62 17 135/70 H 91 L Room Air 02/23/24 08:00 02/23/24 08:00 02/23/24 08:00 02/23/24 08:00 02/23/24 08:00 02/23/24 08:00 Narrative Exam General: AAOx1, elderly male HEENT: Moist mucous membranes, conjunctiva clear, EOMI Cardiovascular: Pt has pacemaker, radial pulses +2 bilat Pulmonary: CTAB bilat no cough, no wheezing GI: No tenderness to light or deep palpitation, no guarding, rigidity, rebound tenderness or distension Extremities: No presence of trace or pitting edema in lower extremities bilaterally, Neuro: AAOx1, limited exam due to patient's baseline Results Labs 02/24/24 05:10 02/24/24 05:10 Labs: Short CBC 02/22/24 02/23/24 Range/Units 13:46 06:14 WBC 7.2 8.0 (3.8-10.6) Thou/mm3 Hgb 14.0 14.0 (13.5-16.0) g/dL Hct 40.0 L 39.9 L (41.0-53.0) % Plt Count 256 D 283 (140-440) Thou/mm3 BMP 02/22/24 02/23/24 13:46 06:14 Sodium 137 139 Potassium 4.4 D 4.6 Chloride 103 104 Carbon Dioxide 25.8 25.2 BUN 22 15 Creatinine 1.1 1.0 Glucose 207 H D 153 H D Calcium 9.7 9.5 Cardiac Enzymes 02/22/24 Range/Units 13:46 Troponin I 0.021 (0.0-0.045) ng/mL Liver Function 02/22/24 02/23/24 Range/Units 13:46 06:14 Total Bilirubin 0.5 0.7 (0.3-1.2) mg/dL AST 18 24 (0-34) U/L ALT 18 15 (10-49) U/L Alkaline Phosphatase 59 58 (46-116) U/L Albumin 4.1 3.9 (3.4-4.8) gm/dL Quality Measures Quality Measures stroke Suspected type of Stroke: Unknown at this time Tenecteplase given: Reason(s) Tenecteplase not given: Outside the time window not given Rehab services: PT evaluation ordered VTE Prophylaxis: pharmaceutical Antithrombotic by day 2:: ordered Statin ordered: >75 y/o moderate or high intensity dose Anticoagulation ordered for A-fib or flutter (current or hx): ordered Advance care planning discussed with:: patient and child Medications Home Medications and Allergies Home Medications ?Medication ?Instructions ?Recorded ?Confirmed ?Type aspirin 81 mg tablet,delayed 81 mg PO QDAY 06/20/23 02/23/24 History release insulin glargine 100 unit/mL (3 20 unit subcut DAILY 06/20/23 02/23/24 History mL) subcutaneous pen (Lantus Solostar U-100 Insulin) ramipril 2.5 mg tablet 2.5 mg PO QDAY 06/20/23 02/23/24 History sitagliptin phosphate 50 mg tablet 50 mg PO QDAY 06/20/23 02/23/24 History (Januvia) metformin 500 mg tablet 500 mg PO BID 01/17/24 02/23/24 History nateglinide 60 mg tablet 60 mg PO BID 01/17/24 02/23/24 History Allergies Allergy/AdvReac Type Severity Reaction Status Date / Time No Known Allergies Allergy Verified 01/13/24 16:14 Visit Medications Acetaminophen (Acetaminophen 325 Mg Tablet) 650 mg PO Q6H PRN PRN Reason: Fever >100.5 Stop: 03/23/24 16:24 Acetaminophen (Acetaminophen 325 Mg Tablet) 650 mg PO Q6H PRN PRN Reason: PAIN SCALE 1-3 (mild Stop: 03/23/24 16:24 Apixaban (Apixaban 2.5 Mg Tablet) 2.5 mg PO BID [facility] Stop: 03/23/24 20:59 Last Admin: 02/23/24 09:00 Dose: Not Given Aspirin (Aspirin Ec 81 Mg Tabec) 81 mg PO QDAY [facility] Stop: 03/24/24 08:59 Last Admin: 02/23/24 09:00 Dose: Not Given Atorvastatin Calcium (Atorvastatin Calcium 20 Mg Tablet) 80 mg PO HS [facility] Stop: 03/23/24 20:59 Last Admin: 02/22/24 21:02 Dose: Not Given Clopidogrel Bisulfate (Clopidogrel Bisulfate 75 Mg Tablet) 75 mg PO QDAY [facility] Stop: 03/24/24 08:59 Last Admin: 02/23/24 09:00 Dose: Not Given Dextrose (Dextrose 50%-Water Inj 50 Ml Syringe) 50 ml IV Q15MIN PRN PRN Reason: BG <50 OR BG <70 & pt unresponsive Stop: 03/23/24 16:35 Dextrose (Dextrose 50%-Water Inj 50 Ml Syringe) 25 ml IV Q15MIN PRN PRN Reason: BG 50-70 responsive npo pt Stop: 03/23/24 16:35 Docusate Sodium (Docusate Sod 100 Mg Capsule) 100 mg PO QDAY [facility]; Protocol Stop: 03/24/24 08:59 Last Admin: 02/23/24 09:00 Dose: Not Given Glucagon (Glucagon Inj 1 Mg Vial) 1 mg IM Q15MIN PRN PRN Reason: BG <70, and no IV access Sodium Chloride (Ns) 1,000 mls @ 75 mls/hr IV .[id number] [facility] Stop: 03/24/24 12:29 Last Admin: 02/22/24 18:59 Dose: 75 mls/hr Insulin Glargine (Insulin Glargine (Lantus) 5 Unit/0.05 Ml (Per 5 Units)) 10 unit SC QDAY [facility] Stop: 03/24/24 08:59 Last Admin: 02/23/24 09:00 Dose: Not Given Insulin Human Lispro (Insulin Lispro (Admelog) 1 Unit/0.01 Ml Unit) 0 unit SC AC [facility]; Protocol Stop: 03/23/24 16:59 Last Admin: 02/23/24 11:49 Dose: Not Given Ondansetron HCl (Ondansetron Inj 2 Mg/Ml Inj 2 Ml) 4 mg IV Q6H PRN; Protocol PRN Reason: NAUSEA OR VOMITING Stop: 03/23/24 16:24 Pantoprazole Sodium (Pantoprazole Inj 40 Mg Vial) 40 mg IVP QDAY [facility] Stop: 03/24/24 08:59 Last Admin: 02/23/24 09:55 Dose: 40 mg Discontinued Medications Aspirin (Aspirin 300 Mg Supp) 300 mg GA X1 ONE Stop: 02/22/24 14:40 Last Admin: 02/22/24 16:10 Dose: Not Given Aspirin (Aspirin 325 Mg Tablet) 325 mg PO X1 ONE Stop: 02/22/24 16:10 Last Admin: 02/22/24 16:10 Dose: 325 mg Clopidogrel Bisulfate (Clopidogrel Bisulfate 75 Mg Tablet) 300 mg PO X1 ONE Stop: 02/22/24 14:40 Last Admin: 02/22/24 16:02 Dose: 300 mg Assessment & Plan Plan Assessment Ashley an 88-year-old male with past medical history of hypertension, CAD status post stents x 5, dementia, Parkinson's disease, diabetes, prostate cancer status post TURP procedure, atrial fibrillation, and recent cardiac stent on 02-21-2024 that presented to the ED with signs and symptoms of stroke with slurred speech and left-sided hemiparesis. Pt to get SRUTHI for further stroke workup. #CAD s/p 5 stents #History of A-fib s/p pacemaker #Hx Hypertension Left cardiac catheterization on February 21, [address] Andersen: 1. Widely patent stent involving proximal, mid and distal left anterior descending artery and no restenosis. 2. 95% stenosis of the posterolateral branch of RCA, 2.5 mm vessel, underwent successful PCI with stent placement drug eluting stent Synergy 2.5 x 16 stent. No complications. Patient presenting with facial droop and aphasia in the ER today after procedure was done. NIHSS score of 9 by telemetry neuro, recommended to continue dual antiplatelet therapy in addition Eliquis to started 2.[address] neck showed no significant neck arterial stenosis, short segment 70% stenosis distal M1 segment R MCA, markedly reduced caliber and opacification left posterior cerebral artery SRUTHI will be optimal for ruling out any PFO, vegetations or thrombus Patient denies any kind of swallowing problems or any kind of esophageal interventions or previous surgeries. Patient denies any kind of gastric ulcers bleeding and any other hematemesis or hematochezia. Patient denies any issues with anesthesia previously. Patient explained all the risks, benefits and alternatives of SRUTHI including the risk of perforation, bleeding, respiratory failure secondary to sedation, injury to teeth gums esophagus and stomach. Patient understands all risks and benefits and provided consent for the procedure. Plan: ? SRUTHI today, follow-up results We will keep him n.p.o. overnight and plan for SRUTHI in the morning. ? Continue on dual antiplatelet therapy aspirin 81 mg and Plavix 75 mg ? Continue Eliquis 2.5 mg twice daily ? Keep potassium above 4 and magnesium above 2 #Diabetes mellitus A1c 8.3 Plan: ? Blood sugars handled by primary hospitalist team #Stroke workup #Dementia #Prostate cancer s/p TURP #History of Parkinson's disease Above managed by primary hospitalist team Patient seen and care discussed with my attending physician, Dr. Nelson Panchal, PGY-1 Attending Provider Attestation/Addendum I have personally seen and examined the patient separately on the above date of service and discussed the plan of care with the resident. I reviewed the resident Dr. Browning consultation progress note and agree with the resident findings and plan in the note above and have also edited the documentation to reflect my findings and plan. Sameer Damon M.D. Interventional Cardiology
[2024-02-23] MEDS: APIXABAN 2.5 MG TABLET PO ×2 (12:13→20:23)
[2024-02-23] MEDS: ASPIRIN EC 81 MG TABEC PO (12:13)
[2024-02-23] MEDS: CLOPIDOGREL BISULFATE 75 MG TABLET PO (12:13)
[2024-02-23] MEDS: DOCUSATE SOD 100 MG CAPSULE PO (12:13)
--- NOTE | 2024-02-23 12:45 | PC.SS ---
SS attempted to meet with pt at bedside to complete initial assessment, pt was getting changed as his IV had come out. SS will re-attempt at a later time.
[2024-02-23] MEDS: MIDAZOLAM INJ 1 MG/ML VIAL 2 ML 3 MG IV (13:29)
[2024-02-23] MEDS: BENZOCAINE 20% (Hurricaine) SPRAY 1 DOSE TOP (13:29)
[2024-02-23] MEDS: fentaNYL CIT INJ 50 mCg/ML AMP 2ML 75 MCG IVP (13:29)
--- NOTE | 2024-02-23 14:10 | ESPR_ITS ---
Documentation for date of: 02/23/24 Senior resident attestation: Patient evaluated and examined at the bedside, plan of care discussed with rest of the team including my attending physician, except as noted. Patient is an 88-year-old male with past medical hypertension, CAD status post recent PCI in December and February 2024, Parkinson disease and prostate cancer and diabetes, history of A-fib status post pacemaker, who was brought in to the ER for altered mental status and disorganized speech, described as word salad by his who was present at the bedside contributed the H&P stroke alert was called and CT was done which was negative for hemorrhage, teleneurologist recommended aspirin and clopidogrel loading dose due to concern for stroke, of note patient was on aspirin and Brilinta following PCI patient had been taking Eliquis previously but stopped following PCI and continued only on aspirin and Brilinta. Artificial Snow Making Machine Operator Dr. Ravi Andersen was consulted, who recommended starting patient on Eliquis from [employer]. #Acute CVA -aspirin and Plavix per neurology recommendations, started on Eliquis due to history of A-fib and concern for acute embolic stroke, by cardiology team. #Expressive aphasia - Transesophageal echocardiogram shows no evidence of PFO ASD or RIMMA RIMMA thrombus, EF 55 to 60%, repeat head CT 02.23.24 shows interval acute infarct or hemorrhage left occipital lobe. Quresh PGY2 Subjective Subjective Interval history: Patient seen today at the bedside fine awake, alert. No overnight events reported. Patient was able to state his name but continues to have some word salad. Patient pending MRI of the brain as part of stroke workup. Patient is scheduled for SRUTHI today in the afternoon by Dr. Damon. Exam Vital Signs Temp Pulse Resp BP Pulse Ox O2 Del Method O2 Flow Rate 97.6 F 60 10 L 114/67 100 Nasal Cannula 2 02/23/24 12:00 02/23/24 13:50 02/23/24 13:50 02/23/24 13:50 02/23/24 13:50 02/23/24 13:50 02/23/24 13:50 Narrative Exam Physical Exam GENERAL: NAD HEENT: Moist mucosa. Eyes open, symmetrical, & clear CARDIO: Heart RRR, no obvious murmurs PULM: No noted coughing/dyspnea CTA B/L, no R/W/R GI: Abdomen soft, nondistended, no pain on palpation. BSx4 SKIN/MSK/EXT: No wounds/rashes/edema/amputations, no pain on palpation. Pedal pulses present B/L NEURO: Able to move all 4 extremities Objective Labs 02/24/24 05:10 02/24/24 05:10 Labs: Laboratory Results - last 24 hr 02/22/24 02/22/24 02/23/24 13:46 16:43 06:14 WBC 8.0 RBC 4.45 L Hgb 14.0 Hct 39.9 L MCV 90 MCH 31.5 MCHC 35.1 RDW Std Deviation 47.2 H Plt Count 283 Neut % (Auto) 74 Lymph % (Auto) 13 [place] % (Auto) 10 Eos % (Auto) 2 Baso % (Auto) 1 Neut # (Auto) 6.0 Lymph # (Auto) 1.1 [place] # (Auto) 0.8 Eos # (Auto) 0.2 Baso # (Auto) 0.1 Immature Gran # (Auto) 0.03 H Absolute Nucleated RBC 0.00 Immature Gran % 0 Nucleated RBC % 0 Sodium 137 139 Potassium 4.4 D 4.6 Chloride 103 104 Carbon Dioxide 25.8 25.2 Anion Gap 8 10 BUN 22 15 Creatinine 1.1 1.0 Estim Creat Clear Calc Not Performed. Not Performed. eGFR > 60 > 60 BUN/Creatinine Ratio 20 15 Glucose 207 H D [address] Glu mg/dL 192 H Hemoglobin A1c 8.3 H Calculated Osmolality 283 281 Calcium 9.7 9.5 Corrected Calcium 9.7 9.6 Magnesium 1.9 1.6 Total Bilirubin 0.5 0.7 AST 18 24 ALT 18 15 Alkaline Phosphatase 59 58 Troponin I 0.021 B-Natriuretic Peptide 160 H Total Protein 6.4 6.2 Albumin 4.1 3.9 Globulin 2.3 2.3 Albumin/Globulin Ratio 1.8 1.7 Triglycerides 74 Cholesterol 177 LDL Cholesterol, Calc 124 HDL Cholesterol 38 L Cholesterol/HDL Ratio 4.7 Lipase 29 Vitamin B12 264 TSH 1.55 1.23 Quality Measures Quality Measures stroke Suspected type of Stroke: Unknown at this time Tenecteplase given: Reason(s) Tenecteplase not given: Outside the time window not given Rehab services: PT evaluation ordered VTE Prophylaxis: pharmaceutical Antithrombotic by day 2:: contraindicated (describe) Statin ordered: >75 y/o moderate or high intensity dose Anticoagulation ordered for A-fib or flutter (current or hx): ordered Advance care planning discussed with:: patient and child Assessment & Plan Assessment Current Active Medications: Generic Name Dose Route Start Last Admin Trade Name Freq PRN Reason Stop Dose Admin Acetaminophen 650 mg 02/22/24 16:25 Acetaminophen 325 Mg Tablet PO 03/23/24 16:24 Q6H PRN Fever >100.5 Acetaminophen 650 mg 02/22/24 16:25 Acetaminophen 325 Mg Tablet PO 03/23/24 16:24 Q6H PRN PAIN SCALE 1-3 (mild Apixaban 2.5 mg 02/22/24 21:00 02/23/24 12:13 Apixaban 2.5 Mg Tablet PO 03/23/24 20:59 2.5 mg BID MI Administration Aspirin 81 mg 02/23/24 09:00 02/23/24 12:13 Aspirin Ec 81 Mg Tabec PO 03/24/24 08:59 81 mg QDAY MI Administration Atorvastatin Calcium 80 mg 02/22/24 21:00 02/22/24 21:02 Atorvastatin Calcium 20 Mg Tablet PO 03/23/24 20:59 Not Given HS MI Clopidogrel Bisulfate 75 mg 02/23/24 09:00 02/23/24 12:13 Clopidogrel Bisulfate 75 Mg Tablet PO 03/24/24 08:59 75 mg QDAY MI Administration Dextrose 50 ml 02/22/24 16:36 Dextrose 50%-Water Inj 50 Ml Syringe IV 03/23/24 16:35 Q15MIN PRN BG <50 OR BG <70 & pt unresponsive Dextrose 25 ml 02/22/24 16:36 Dextrose 50%-Water Inj 50 Ml Syringe IV 03/23/24 16:35 Q15MIN PRN BG 50-70 responsive npo pt Docusate Sodium 100 mg 02/23/24 09:00 02/23/24 12:13 Docusate Sod 100 Mg Capsule PO 03/24/24 08:59 100 mg QDAY MI Administration Protocol Glucagon 1 mg 02/22/24 16:36 Glucagon Inj 1 Mg Vial IM Q15MIN PRN BG <70, and no IV access Sodium Chloride 1,000 mls @ 75 mls/hr 02/22/24 16:30 02/22/24 18:59 Ns IV 03/24/24 12:29 75 mls/hr .[id number] MI Administration Insulin Glargine 10 unit 02/23/24 09:00 02/23/24 09:00 Insulin Glargine (Lantus) 5 Unit/0.05 Ml (Per 5 Units) SC 03/24/24 08:59 Not Given QDAY MI Insulin Human Lispro 0 unit 02/22/24 17:00 02/23/24 11:49 Insulin Lispro (Admelog) 1 Unit/0.01 Ml Unit SC 03/23/24 16:59 Not Given AC MI Protocol Ondansetron HCl 4 mg 02/22/24 16:25 Ondansetron Inj 2 Mg/Ml Inj 2 Ml IV 03/23/24 16:24 Q6H PRN NAUSEA OR VOMITING Protocol Pantoprazole Sodium 40 mg 02/23/24 09:00 02/23/24 09:55 Pantoprazole Inj 40 Mg Vial IVP 03/24/24 08:59 40 mg QDAY MI Administration Plan 88-year-old male with past medical history of hypertension, CAD status post stents x 5, dementia, Parkinson's disease, diabetes, prostate cancer status post TURP procedure, atrial fibrillation presented to the ED from [facility] due to incomprehensible speech and slurred speech. Admitted for stroke workup #Stroke rule out This morning 02/22/2024 around 9:30 AM, daughter received a call from caregiver stating that the patient was altered not oriented to time, person or place and was having difficulty speaking. Patient was also noted to have episodes of blank stares required to be shaken to respond Around 11 AM daughter saw the patient and noticed the patient was having word salad and was slurring his words. On examination patient is having word salad but is understanding CT head was done and showed Negative for acute hemorrhage, mass effect or midline shift. Head/neck CTA showed No significant neck arterial stenoses Short segment 70% stenosis distal M1 segment right middle cerebral artery Markedly reduced caliber and opacification left posterior cerebral artery NIHSS: 9 on admission In the ED patient was given Bolus with Clopidogrel 300 mg bolus x1 A1c 8.3, TSH within normal limits, B12 normal - pending MRI brain - pending SRUTHI with bubble study - High intensity statin - aspirin 81mg - plavix 75mg - HOB >30 degrees - Neuro Checks q4h - HOB>30 - Aspiration precautions - pending physical therapy eval - Neurology, Dr. Lozano consulted, appreciate recommendations #Dementia #Parkinson Disease Patient has hx of parkinsons, dementia, however daughter states patient does not take any medications for these diangoses Was on medication at one point on time however patient declined and was discontinued - f/u Neuro recommendations ? #Hypertension #CAD s/p stents #Atrial fibrillation - resume anti-hypertensives when appropiate - Aspirin + Plavix - Cardiology, Dr. Andersen, appreciate recommendations #Diabetes A1c 8.3 - ssi - hypoglycemic protocol in place #Hx of prostate cancer s/p TURP - monitor for now Case discussed with my senior Dr. Wolf PGY-[address] Roshni Barba MD PGY-1 Disposition: Telemetry Fluids: None Feeding: NPO for SRUTHI Gastric Ulcer prophylaxis: none CODE STATUS: DNR Attending Provider Attestation/Addendum Teresita Monterroso, , attest that I was physically present for the [place] portions of the service and evaluated the patient with the resident and I reviewed and discussed the case with the resident and agree with the resident's findings and plans of care as documented above Patient seen and evaluated this AM. Patient continues to be aphasic and confused. No family at bedside at time of evaluation. Started on eliquis by cardiology due to concern for embolic stroke. SRUTHI scheduled today. Continue with DAPT as per neuro recommendations. PT pending.
[2024-02-23] MEDS: SODIUM CHLORIDE 0.9% 1000 ML 1,000 ML 75 ML IV (18:28)
--- NOTE | 2024-02-23 20:00 | XR_ITS ---
Examination: CT brain head without contrast. 2-D sagittal coronal reconstructions Date and time of exam:February 23, 2024 at 2054 hrs. Comparison February 22, 2024 Indications: Stroke alert February 22, 2024, onset focal neurologic deficit Indications: Altered mental status CTDI: vol (mGy):50.3 DLP: (mGycm):995 Technique: Multiple CT axial sections of the brain have been obtained, 5 mm slice thickness. Contrast has not been administered. 2-D sagittal, coronal reconstructions have been obtained Low dose protocols were performed. One or more of the following dose reduction techniques were used; automated exposure control, adjustment of the mA and/or KV according to patient size, use of iterative reconstruction technique. Findings: Interval large acute infarct left occipital lobe, nonhemorrhagic Ventricles are not enlarged No mass effect upon the ventricular system No acute hemorrhage Impression: Interval acute infarct, nonhemorrhagic, left occipital lobe
[2024-02-23] MEDS: ATORVASTATIN CALCIUM 20 MG TABLET 80 MG PO (20:23)
--- NOTE | 2024-02-23 23:51 | ESPR_ITS ---
Documentation for date of: 02/23/24 Subjective Subjective Interval history: Patient was seen in telemetry today at the bedside with his daughter at dinnertime. Continues to have trouble focusing, tracking, language deficit. He was noted to be more tremulous today not sure if it was related to being cold or abnormal involuntary movements. Exam - Neurology Vital Signs Temp Pulse Resp BP Pulse Ox O2 Del Method O2 Flow Rate 97.8 F 60 21 H 139/85 H 98 Room Air 2 02/23/24 20:00 02/23/24 20:00 02/23/24 20:00 02/23/24 20:00 02/23/24 20:00 02/23/24 20:00 02/23/24 14:30 Narrative Exam GENERAL APPEARANCE: Well hydrated, well-nourished in no acute distress. HEENT: Normocephalic, atraumatic, extraocular movements intact. Pupils: Equal reacting to light NECK: Supple, no JVD or bruits. CARDIOVASULAR: Heart: S1, S2 heard, regular without S3-S4 or murmur no rubs or gallops. LUNGS/CHEST: Clear to auscultation bilaterally. No rails, rhonchi, or wheezing. Normal inspection. ABDOMEN: Soft, nontender, with normal bowel sounds. No pulsatile masses. No rebound, rigidity, or guarding. Normal inspection and palpation. EXTREMITIES: Normal inspection and palpation. No edema, clubbing or cyanosis. SKIN: Warm and dry without rashes. Normal inspection. MUSCULOSKELETAL: No cervical, thoracic, lumbar or midline bony tenderness. Normal inspection. NEURO: Alert, awake and oriented x1. Cranial nerves: II through XII grossly intact with exception of visual field defect on the right. Speech and language: Significant mixed aphasia. Motor system: Tone and bulk: Normal: Strength: moves all 4 extremities; No pronator drift noted. Deep tendon reflexes: 2+ bilaterally symmetrical. Plantar reflex: Downgoing bilaterally. Sensory system: Intact to pinprick sensation bilaterally. Rest of exam: Limited. no signs of meningeal irritation noted. Noted tremors in both upper extremities. PSYCHIATRIC: Normal mood and affect. Objective Labs 02/23/24 06:14 02/23/24 06:14 Labs: Laboratory Results - last 24 hr 02/23/24 06:14 WBC 8.0 RBC 4.45 L Hgb 14.0 Hct 39.9 L MCV 90 MCH 31.5 MCHC 35.1 RDW Std Deviation 47.2 H Plt Count 283 Neut % (Auto) 74 Lymph % (Auto) 13 [place] % (Auto) 10 Eos % (Auto) 2 Baso % (Auto) 1 Neut # (Auto) 6.0 Lymph # (Auto) 1.1 [place] # (Auto) 0.8 Eos # (Auto) 0.2 Baso # (Auto) 0.1 Immature Gran # (Auto) 0.03 H Absolute Nucleated RBC 0.00 Immature Gran % 0 Nucleated RBC % 0 Sodium 139 Potassium 4.6 Chloride 104 Carbon Dioxide 25.2 Anion Gap 10 BUN 15 Creatinine 1.0 Estim Creat Clear Calc Not Performed. eGFR > 60 BUN/Creatinine Ratio 15 Glucose 153 H D Calculated Osmolality 281 Calcium 9.5 Corrected Calcium 9.6 Magnesium 1.6 Total Bilirubin 0.7 AST 24 ALT 15 Alkaline Phosphatase 58 Total Protein 6.2 Albumin 3.9 Globulin 2.3 Albumin/Globulin Ratio 1.7 Triglycerides 74 Cholesterol 177 LDL Cholesterol, Calc 124 HDL Cholesterol 38 L Cholesterol/HDL Ratio 4.7 TSH 1.23 Assessment & Plan Assessment and plan (1) Acute CVA (cerebrovascular accident): Status: Acute Assessment and plan: Presenting with mixed aphasia, visual deficit without any motor or sensory symptoms. Loaded with Plavix by [employer]. Workup: CT: negative for acute intracranial abnormality, CTA: short segment 70% stenosis distal M1 segment right middle cerebral artery Markedly reduced caliber and opacification left posterior cerebral artery; Repeat CT head showed large acute nonhemorrhagic infarct in the left occipital area. continue with statin as the lipids are not controlled, 81 mg ASA and Plavix 75 mg daily for better prophylaxis in place of Eliquis as SRUTHI is negative. Continue with PT/ST (2) Coronary artery disease: Status: Chronic Assessment and plan: Stable s/p PCI yesterday (3) Diabetes mellitus: Status: Chronic Assessment and plan: needs better control, A1C: 8.3 (4) Vascular dementia: Status: Acute Assessment and plan: stable. hard to assess from language deficit from the new stroke.
[2024-02-24] VITALS (8 sets, daily range): BP systolic 115–139; BP diastolic 61–84; PULSE 56–80; RESP 11–96; TEMP 36.2–36.6; O2SAT 94–97; BMI 12.0
--- NOTE | 2024-02-24 | XR_ITS ---
Examinations: MRI Brain without intravenous contrast. MRA brain without intravenous contrast. MRA carotids without intravenous contrast 3-D vascular reconstructions Date and time of exam: February 24, 2024 1342 hrs. Indications: Onset slurred speech left-sided and the peristalsis today, focal neurologic deficits Technique: Multiple axial and sagittal images of the brain have been obtained MRA brain carotid images without contrast obtained, including 3-D postprocessing, vascular maximum intensity projection images Findings: [place] is not enlarged. The optic chiasm and infundibular stalk are not remarkable. Prepontine and interpeduncular cisterns are not enlarged. No localized enlargement of the medulla or waqar. Fourth ventricle and cerebellar tonsils normal in position. Subacute hemorrhage is not seen. Fourth ventricle is midline. Mass in the cerebellopontine angle region is not evident. 7th and 8th nerve complexes exhibits symmetry. Globes are symmetrical with no retro-orbital mass. Increased white matter signal significant Diffusion-weighted images demonstrate large foci restricted diffusion left posterior temporal posterior parietal left occipital lobe and smaller foci restricted diffusion in the higher left parietal lobe Mass-effect upon the ventricular system is not identified. MRA brain images occlusion of the distal M1 segment left middle cerebral artery with poor filling of left middle cerebral artery trifurcation branches Impression: Large areas of acute infarction left posterior temporal posterior parietal and left occipital lobe Smaller foci of acute infarction in the high left parietal lobe Occlusion of the distal M1 segment left middle cerebral artery
[2024-02-24 06:03] LABS: Basophils # (Auto) 0.1 Thou/mm3 (0.0-0.2); Basophils % (Auto) 1 % (0-2.5); Eosinophils # (Auto) 0.2 Thou/mm3 (0.0-0.5); Eosinophils % (Auto) 3 % (0-10); Hematocrit 36.9 % (41.0-53.0); Hemoglobin 12.9 g/dL (13.5-16.0); Immature Granulocytes % (Auto) 0 % (0-0); Immature Granulocytes Auto 0.03 Thou/mm3 (0.00-0.00); Lymphocytes # (Auto) 1.2 Thou/mm3 (1.0-4.8); Lymphocytes % (Auto) 15 % (10-50); Mean Corpuscular Hemoglobin 30.7 pg (25.0-35.0); Mean Corpuscular Volume 88 fL (80-100); Monocytes # (Auto) 0.9 Thou/mm3 (0.0-0.8); Monocytes % (Auto) 11 % (0-12); Neutrophils # (Auto) 5.4 Thou/mm3 (1.8-7.7); Neutrophils % (Auto) 69 % (37-80); Nucleated Red Blood Cell % 0 /100 WBC (0); Platelet Count 252 Thou/mm3 (140-440); RDW Standard Deviation 45.8 fL (35.1-43.9); White Blood Count 7.7 Thou/mm3 (3.8-10.6)
[2024-02-24 06:22] LABS: Alanine Aminotransferase 13 U/L (10-49); Albumin, Serum 3.6 gm/dL (3.4-4.8); Albumin/Globulin Ratio 1.7 (1.2-2.2); Alkaline Phosphatase 54 U/L (46-116); Anion Gap 9 (7-16); Aspartate Amino Transferase 15 U/L (0-34); BUN/Creatinine Ratio 13 Ratio (12-20); Bilirubin,Total 0.9 mg/dL (0.3-1.2); Blood Urea Nitrogen 12 mg/dL (9-23); Calcium 9.1 mg/dL (8.3-10.6); Calcium (Corrected) 9.4 mg/dL (8.5-10.1); Chloride 105 mMol/L (98-107); Creatinine (Component) 0.9 mg/dL (0.6-1.3); Globulin 2.1 gm/dL (2.3-3.5); Glucose 205 mg/dL (74-106); Magnesium 1.6 mg/dL (1.6-2.6); Osmolality,Calculated 281 (275-295); Sodium 138 mMol/L (136-145); Total Protein 5.7 gm/dL (5.7-8.2); eGFR > 60 See Note
[2024-02-24] MEDS: APIXABAN 2.5 MG TABLET PO ×2 (08:51→20:37)
[2024-02-24] MEDS: INSULIN GLARGINE (Lantus) 5 UNIT/0.05 ML (PER 5 UNITS) 10 UNIT SC (08:51)
[2024-02-24] MEDS: ASPIRIN EC 81 MG TABEC PO (08:51)
[2024-02-24] MEDS: CLOPIDOGREL BISULFATE 75 MG TABLET PO (08:51)
[2024-02-24] MEDS: INSULIN LISPRO (AdmeLOG) 1 UNIT/0.01 ML UNIT SC ×3 (08:51→17:14)
[2024-02-24] MEDS: PANTOPRAZOLE INJ 40 MG VIAL IVP (08:52)
[2024-02-24] MEDS: Magnesium Sulfate 4 GM Ivpb 4 GM/50 ML BAG IV (08:56)
--- NOTE | 2024-02-24 10:36 | PC.SS ---
SENIOR QUALITY METHODS SPECIALIST conducted bedside contact with the patient conduct initial assessment and to discuss discharge planning. At bedside with patient was daughter in law, Krystle Jorge . Patient admitted for stroke. Patient possesses a history of dementia. Daughter in law provided information for assessment and discharge planning. Patient resides at home with spouse. Patient resides at [facility]. Patient has a private caregiver who provides services 5 days a week. Patient utilizes a walker to assist with ambulation. Patient does not utilize home oxygen. Patient requires assistance with completion of ADL?s. Patient?s medical surrogate decision maker is son, Issac Jorge, . Patient?s PCP is Dr. Martin. Patient?s clinical staff rn is Dr. Manzo. Patient has pacemaker. Patient?s neurologist is Dr. Elkins. Patient is diabetic, insulin dependent. Patient does not participate with dialysis. Confirmed with patient?s son, code status is DNR. Discharge plan is for the patient to return to [facility]. Family has declined SNF placement for the patient. Family requesting home health (PT/OT), preferred agency [facility]. No further intervention required at this time, social media sr strategy manager will be available to address any further concerns. Next of Kin: Issac Jorge D/C Plan: Home
--- NOTE | 2024-02-24 10:55 | PC.SS ---
Secondary contact for patient is daughter in law, Krystle Jorge .
--- NOTE | 2024-02-24 13:45 | PD.RESPRO ---
Documentation for date of: 02/24/24 Exam Vital Signs Temp Pulse Resp BP Pulse Ox O2 Del Method O2 Flow Rate 97.1 F 60 23 H 132/76 H 95 Room Air 2 02/24/24 08:00 02/24/24 08:00 02/24/24 08:00 02/24/24 08:00 02/24/24 08:00 02/24/24 08:00 02/23/24 14:30 Objective Labs 02/24/24 05:10 02/24/24 05:10 Labs: Laboratory Results - last 24 hr 02/24/24 05:10 WBC 7.7 RBC 4.20 L Hgb 12.9 L Hct 36.9 L MCV 88 MCH 30.7 MCHC 35.0 RDW Std Deviation 45.8 H Plt Count 252 D Neut % (Auto) 69 Lymph % (Auto) 15 [place] % (Auto) 11 Eos % (Auto) 3 Baso % (Auto) 1 Neut # (Auto) 5.4 Lymph # (Auto) 1.2 [place] # (Auto) 0.9 H Eos # (Auto) 0.2 Baso # (Auto) 0.1 Immature Gran # (Auto) 0.03 H Absolute Nucleated RBC 0.00 Immature Gran % 0 Nucleated RBC % 0 Sodium 138 Potassium 4.0 D Chloride 105 Carbon Dioxide 24.0 Anion Gap 9 BUN 12 Creatinine 0.9 Estim Creat Clear Calc Not Performed. eGFR > 60 BUN/Creatinine Ratio 13 Glucose 205 H D Calculated Osmolality 281 Calcium 9.1 Corrected Calcium 9.4 Magnesium 1.6 Total Bilirubin 0.9 AST 15 ALT 13 Alkaline Phosphatase 54 Total Protein 5.7 Albumin 3.6 Globulin 2.1 L Albumin/Globulin Ratio 1.7 Quality Measures Quality Measures stroke Suspected type of Stroke: Unknown at this time Last known well (date): 02/23/24 Last known well (time): 09:45 Tenecteplase given: Reason(s) Tenecteplase not given: Outside the time window not given Assessment & Plan Assessment Current Active Medications: Generic Name Dose Route Start Last Admin Trade Name Freq PRN Reason Stop Dose Admin Acetaminophen 650 mg 02/22/24 16:25 Acetaminophen 325 Mg Tablet PO 03/23/24 16:24 Q6H PRN Fever >100.5 Acetaminophen 650 mg 02/22/24 16:25 Acetaminophen 325 Mg Tablet PO 03/23/24 16:24 Q6H PRN PAIN SCALE 1-3 (mild Apixaban 2.5 mg 02/22/24 21:00 02/24/24 08:51 Apixaban 2.5 Mg Tablet PO 03/23/24 20:59 2.5 mg BID MI Administration Aspirin 81 mg 02/23/24 09:00 02/24/24 08:51 Aspirin Ec 81 Mg Tabec PO 03/24/24 08:59 81 mg QDAY MI Administration Atorvastatin Calcium 80 mg 02/22/24 21:00 02/23/24 20:23 Atorvastatin Calcium 20 Mg Tablet PO 03/23/24 20:59 80 mg HS MI Administration Clopidogrel Bisulfate 75 mg 02/23/24 09:00 02/24/24 08:51 Clopidogrel Bisulfate 75 Mg Tablet PO 03/24/24 08:59 75 mg QDAY MI Administration Dextrose 50 ml 02/22/24 16:36 Dextrose 50%-Water Inj 50 Ml Syringe IV 03/23/24 16:35 Q15MIN PRN BG <50 OR BG <70 & pt unresponsive Dextrose 25 ml 02/22/24 16:36 Dextrose 50%-Water Inj 50 Ml Syringe IV 03/23/24 16:35 Q15MIN PRN BG 50-70 responsive npo pt Docusate Sodium 100 mg 02/23/24 09:00 02/23/24 12:13 Docusate Sod 100 Mg Capsule PO 03/24/24 08:59 100 mg QDAY MI Administration Protocol Glucagon 1 mg 02/22/24 16:36 Glucagon Inj 1 Mg Vial IM Q15MIN PRN BG <70, and no IV access Insulin Glargine 10 unit 02/23/24 09:00 02/24/24 08:51 Insulin Glargine (Lantus) 5 Unit/0.05 Ml (Per 5 Units) SC 03/24/24 08:59 10 unit QDAY MI Administration Insulin Human Lispro 0 unit 02/22/24 17:00 02/24/24 11:56 Insulin Lispro (Admelog) 1 Unit/0.01 Ml Unit SC 03/23/24 16:59 2 unit AC MI Administration Protocol Ondansetron HCl 4 mg 02/22/24 16:25 Ondansetron Inj 2 Mg/Ml Inj 2 Ml IV 03/23/24 16:24 Q6H PRN NAUSEA OR VOMITING Protocol Pantoprazole Sodium 40 mg 02/23/24 09:00 02/24/24 08:52 Pantoprazole Inj 40 Mg Vial IVP 03/24/24 08:59 40 mg QDAY MI Administration
--- NOTE | 2024-02-24 14:31 | ESDS_ITS ---
<Statement entered by Teresita Barakat DO - 02/25/24 08:05> I, Teresita Barakat DO, attest that I was physically present for the [place]raz[place] portions of the service and evaluated the patient with the resident and I reviewed and discussed the case with the resident and agree with the resident's findings and plans of care as documented above Planned Discharge Date 02/24/24 DS: Providers Provider Date of admission: 02/22/24 16:35 Primary care physician: Yusuf Martin MD Admitting Provider: Teresita Barakat DO Attending Provider on Admission: Teresita Barakat DO Consults: 02/22/24 13:39 Consult to Neurology / Tele-Neurology Routine Comment: Consulting Provider: [facility] 02/22/24 16:27 Referral Speech Therapy Stat Comment: 02/22/24 16:29 Referral Physical Therapy Stat Comment: Physician Instructions: 02/22/24 16:48 Consult to Cardiology Stat Comment: Consulting Provider: Nay Andersen Consult to Neurology / Tele-Neurology Stat Comment: Consulting Provider: Luciano Lozano 02/23/24 12:09 Consult to Cardiology Stat Comment: SRUTHI Consulting Provider: Sameer Damon Attending Provider on DC: Teresita Barakat DO Discharging Provider: Maximo Barba MD Anticipated date of discharge: 02/24/24 DS: Diagnosis Problem List Completed Was Problem List Reviewed/Reconciled?: Yes Hospital Course Hospital Course Hospital course: 88-year-old male with past medical history of hypertension, CAD status post stents x 5, dementia, Parkinson's disease, diabetes, prostate cancer status post TURP procedure, atrial fibrillation presented to the ED from [facility] due to incomprehensible speech and slurred speech. Admitted for stroke workup. During hospital stay patient underwent stroke work up including consulting Teleneurology and imaging studies such as Head CT which showed Interval acute infarct, nonhemorrhagic, left occipital lobe, Head/Neck CTA showed No significant neck arterial stenoses Short segment 70% stenosis distal M1 segment right middle cerebral artery. Markedly reduced caliber and opacification left posterior cerebral artery. Transesophageal Echocardiogram was also done as part of stroke work up which was negative for PFO or ASD, EF 55-60%. MRI brain was also done. Patient was started on Aspirin, high intensity atorvastatin 80mg, plavix 75mg. Patient was monitored with frequent neuro checks to evaluate neuro status during hospitalization. In house Neurology was consulted and evaluated the patient and provided recommendations. Cardiology Dr. Andersen was also consu lted as patient recent cardiac cath procedure, recommended patient to continue with triple therapy for at least 30 days and later continue with plavix and eliquis. Instructed to follow up with Cardiology within 1 week of discharge. Physical therapy and speech therapy were consulted and patient passed swallow evaluation. PT evaluation recommended the patient go to acute rehab facility for daily physical therapy however patients family decided to do Home with home health at the time of discharge. Patients Hypertension, Afib, and CAD were managed with Dual antiplatelet therapy. Diabetes was managed with insulin sliding scale. At this time patient is medically stable for discharge. Will continue with Aspirin 81mg qday, Plavix 75mg qday, and continue Eliquis 2.5mg BID for 30 days and follow up with Dr. Andersen in one week. Recommend to follow up with PCP within 1 week of discharge. Recommend to follow up with Cardiology within 1 week of discharge. Follow up with Neurology within 2 weeks of discharge. If symptoms recur or worsen patient is instructed to return to the ED. Problem List: #Acute CVA #Dementia #Parkinson Disease #Hypertension #CAD s/p stents #Atrial fibrillation #Diabetes #Hx of prostate cancer s/p TURP Case discussed with my attending Dr. Roshni Barba MD PGY-1 Senior resident attestation: Patient evaluated and examined at the bedside, plan of care discussed with rest of the team including my attending physician, except as noted. Maryann PGY2 Status at Discharge Functional status at discharge: uses cane/walker Overall status at discharge: patient is back to baseline Time Spent with Patient Time attestation: Total time spent providing and/or coordinating discharge services: Time spent: Greater than 30 minutes Home Health Home Health Referral Orders: 02/24/24 14:29 Home Health Referral Routine Reason For Exam: cva Home-Bound The patient must either because of illness or injury, need the aid of supportive devices such as crutches, canes, wheelchairs, and walkers; the use of special transportation; or the assistance of another person in order to leave their place of residence; OR have a condition such that leaving his or her home is medically contraindicated. In addition, the patient also meets the following criteria: patient is normally unable to leave the home and leaving home requires considerable taxing effort. Addendum to Home Health Certification Practitioner's Certification: I certify that the patient has been under my care in the hospital and the care of attending physician (see below). We had a eeyy-fk-[id number] encounter on (see date below). My clinical findings indicate that the patient is home bound per the above criteria and the Home Health Services noted in these orders are medically necessary. The primary reason for the [id number] encounter is related to the fact that the patient requires home health services. Date Certifying [id number] Physician Encounter: 02/22/24 Physician's Name who will Assume Oversight for Services: Yusuf Martin Physician's Phone No.who will Assume Oversight for Service: MEAT SMOKER - Community Resources: No PT to Evaluate: Yes PT to evaluate and provide a treatmnet plan to increase patient's mobility and strength. Wound Care: No IV Therapy: No RN Safety Evaluation: Yes RN to evaluate and create a plan of care that will produce positive outcomes. Palliative Treatment: No Palliative treatment and evaluate the need for hospice. Home Health Aide - Personal Care: Yes Home Health Aide to assist with any ADL's. Exam Vital Signs Temp Pulse Resp BP Pulse Ox O2 Del Method O2 Flow Rate 97.1 F 60 23 H 132/76 H 95 Room Air 2 02/24/24 08:00 02/24/24 08:00 02/24/24 08:00 02/24/24 08:00 02/24/24 08:00 02/24/24 08:00 02/23/24 14:30 Narrative Exam Physical Exam GENERAL: NAD HEENT: Moist mucosa. Eyes open, symmetrical, & clear CARDIO: Heart RRR, no obvious murmurs PULM: No noted coughing/dyspnea CTA B/L, no R/W/R GI: Abdomen soft, nondistended, no pain on palpation. BSx4 SKIN/MSK/EXT: No wounds/rashes/edema/amputations, no pain on palpation. Pedal pulses present B/L NEURO: Able to move all 4 extremities Discharge Plan Plan Patient Disposition: Home w/HOME HEALTH Care Plan Goals: Will continue with Aspirin 81mg qday, Plavix 75mg qday, and continue Eliquis 2.5mg BID for 30 days amd follow up with dr Sunshine in one week. Recommend to follow up with PCP within 1 week of discharge. Recommend to follow up with Cardiology within 1 week of discharge. Follow up with Neurology within 2 weeks of discharge Prescriptions/Referrals Prescriptions/Med Rec: New atorvastatin 40 mg tablet 80 mg PO HS 30 Days Qty: 60 0RF clopidogrel 75 mg Tablet 75 mg PO QDAY 30 Days Qty: 30 0RF Eliquis 2.5 mg Tablet 2.5 mg PO BID 30 Days Qty: 60 0RF Continued aspirin 81 mg Tablet,Delayed Release (Dr/Ec) 81 mg PO QDAY Hold Instructions: Resume on 06/22/23. Januvia 50 mg Tablet 50 mg PO QDAY insulin glargine [Lantus Solostar U-100 Insulin] 100 unit/mL (3 mL) Insulin Pen 20 unit SUBCUT DAILY Rx Instructions: with meal ramipril 2.5 mg Tablet 2.5 mg PO QDAY metformin 500 mg Tablet 500 mg PO BID Hold Instructions: Resume on 02/23/24. nateglinide 60 mg Tablet 60 mg PO BID Rx Instructions: give before meal(s) Discontinued Brilinta 90 mg Tablet 90 mg PO BID Qty: 60 0RF Referrals: Yusuf Martin MD [Primary Care Provider] - Patient/Caregiver Discharge Instructions Print Language: Persian Stand Alone Forms: [employer] Award Info., Patient Portal Info Letter Discharge Order Discharge Orders: Discharge (Routine); Ordered 02/24/24 Ordered By: Maximo Barba Quality Discharge Quality Measures VTE prophylaxis
--- NOTE | 2024-02-24 15:28 | PC.SS ---
SS spoke to patient's son, Issac who is aware pt is maximum assistance, per PT notes. SS provided Issac with d/c options for home or SNF. Issac is requesting to speak with family about dc options. Issac is agreeable for SS to send inquiry for SNF placement as an option for d/c in case family is agreeable to SNF. If family is agreeable to SNF their 1st choice is [facility] and 2nd is [facility]. Pt does require 3 midnight hospital stay as in pt for SNF placement.
[2024-02-24 18:33] LABS: Collection Type, Urine Clean Catch
[2024-02-24 18:48] LABS: Bilirubin,Urine Negative (Negative); Blood,Urine 2+ (Negative); Clarity,Urine Clear (Clear/Hazy); Color,Urine Lt-Yellow (Lt Yel-Yel); Glucose, Urine Negative (Negative); Hyaline Casts,Urine < 1 /hpf (0-1); Ketones,Urine Negative (Negative); Leukocyte Esterase,Urine Positive (Negative); Nitrite,Urine Negative (Negative); PH,Urine 5.5 (5.0-7.0); Protein,Urine Negative (Neg - Trace); RBC,Urine 11 /hpf (0-3); Specific Gravity,Urine 1.012 (1.001-1.035); Squamous Epithelial Cell,Urine 2 /hpf (0-5); Urobilinogen,Urine Negative mg/dL (0.0-1.0); WBC,Urine 146 /hpf (0-5)
[2024-02-24 18:56] LABS: Amphetamine/Methamp Scrn,U Negative (Negative); Barbiturate Screen,Urine Negative (Negative); Benzodiazepines Screen,Urine Positive (Negative); Benzoylecgonine Screen, Ur Negative (Negative); Fentanyl Screen,Urine Positive (Negative); Opiate Screen,Urine Negative (Negative); THC Screen,Urine Negative (Negative)
[2024-02-24] MEDS: ATORVASTATIN CALCIUM 20 MG TABLET 80 MG PO (20:37)
--- NOTE | 2024-02-24 23:47 | PD.NEUROPROG ---
Documentation for date of: 02/24/24 Subjective Subjective Interval history: Patient was seen in telemetry today at the bedside. Continues to have mixed aphasia. No more significant involuntary movements noted in both upper extremities unlike yesterday. Exam - Neurology Vital Signs Temp Pulse Resp BP Pulse Ox O2 Del Method O2 Flow Rate 97.9 F 56 L 16 139/67 H 97 Room Air 2 02/24/24 20:00 02/24/24 23:37 02/24/24 23:37 02/24/24 20:00 02/24/24 20:00 02/24/24 20:00 02/23/24 14:30 Narrative Exam GENERAL APPEARANCE: Well hydrated, well-nourished in no acute distress. HEENT: Normocephalic, atraumatic, extraocular movements intact. Pupils: Equal reacting to light NECK: Supple, no JVD or bruits. CARDIOVASULAR: Heart: S1, S2 heard, regular without S3-S4 or murmur no rubs or gallops. LUNGS/CHEST: Clear to auscultation bilaterally. No rails, rhonchi, or wheezing. Normal inspection. ABDOMEN: Soft, nontender, with normal bowel sounds. No pulsatile masses. No rebound, rigidity, or guarding. Normal inspection and palpation. EXTREMITIES: Normal inspection and palpation. No edema, clubbing or cyanosis. SKIN: Warm and dry without rashes. Normal inspection. MUSCULOSKELETAL: No cervical, thoracic, lumbar or midline bony tenderness. Normal inspection. NEURO: Alert, awake and oriented x1. Cranial nerves: II through XII grossly intact with exception of visual field defect on the right. Speech and language: Significant mixed aphasia. Motor system: Tone and bulk: Normal: Strength: moves all 4 extremities; No pronator drift noted. Deep tendon reflexes: 2+ bilaterally symmetrical. Plantar reflex: Downgoing bilaterally. Sensory system: Intact to pinprick sensation bilaterally. Rest of exam: Limited. no signs of meningeal irritation noted. PSYCHIATRIC: Normal mood and affect. Objective Labs 02/25/24 04:37 02/25/24 04:37 Labs: Laboratory Results - last 24 hr 02/24/24 02/24/24 05:10 18:12 WBC 7.7 RBC 4.20 L Hgb 12.9 L Hct 36.9 L MCV 88 MCH 30.7 MCHC 35.0 RDW Std Deviation 45.8 H Plt Count 252 D Neut % (Auto) 69 Lymph % (Auto) 15 Banks % (Auto) 11 Eos % (Auto) 3 Baso % (Auto) 1 Neut # (Auto) 5.4 Lymph # (Auto) 1.2 Banks # (Auto) 0.9 H Eos # (Auto) 0.2 Baso # (Auto) 0.1 Immature Gran # (Auto) 0.03 H Absolute Nucleated RBC 0.00 Immature Gran % 0 Nucleated RBC % 0 Sodium 138 Potassium 4.0 D Chloride 105 Carbon Dioxide 24.0 Anion Gap 9 BUN 12 Creatinine 0.9 Estim Creat Clear Calc Not Performed. eGFR > 60 BUN/Creatinine Ratio 13 Glucose 205 H D Calculated Osmolality 281 Calcium 9.1 Corrected Calcium 9.4 Magnesium 1.6 Total Bilirubin 0.9 AST 15 ALT 13 Alkaline Phosphatase 54 Total Protein 5.7 Albumin 3.6 Globulin 2.1 L Albumin/Globulin Ratio 1.7 Ur Collection Type Clean Catch Urine Color Lt-Yellow Urine Clarity Clear Urine pH 5.5 Ur Specific [place] 1.012 Urine Protein Negative Urine Glucose (UA) Negative Urine Ketones Negative Urine Blood 2+ A Urine Nitrite Negative Urine Bilirubin Negative Urine Urobilinogen (Auto) Negative Ur Leukocyte Esterase Positive Urine RBC 11 H Urine WBC 146 H Ur Squamous Epith Cells 2 Urine Bacteria None Hyaline Casts < 1 Urine Opiates Screen Negative Urine Fentanyl Screen Positive A Ur Barbiturates Screen Negative U Amphetamin/Meth Scrn Negative U Benzodiazepines Scrn Positive A U Cocaine Metab Screen Negative U Marijuana (THC) Screen Negative Assessment & Plan Assessment and plan (1) Acute CVA (cerebrovascular accident): Status: Acute Assessment and plan: Presenting with mixed aphasia, visual deficit without any motor or sensory symptoms. Loaded with Plavix by [email or web address]. Workup: Initial CT: negative for acute intracranial abnormality, CTA: short segment 70% stenosis distal M1 segment right middle cerebral artery Markedly reduced caliber and opacification left posterior cerebral artery; Repeat CT head showed large acute nonhemorrhagic infarct in the left occipital area. MRI brain from today showed extension of the infarction: Large areas of acute infarction left posterior temporal posterior parietal and left occipital lobe Smaller foci of acute infarction in the high left parietal lobe Occlusion of the distal M1 segment left middle cerebral artery continue with statin as the lipids are not controlled, 81 mg ASA and Plavix 75 mg daily for better prophylaxis Cardiology recommended to continue low-dose Eliquis Continue with PT/ST (2) Coronary artery disease: Status: Chronic Assessment and plan: Stable s/p PCI yesterday (3) Diabetes mellitus: Status: Chronic Assessment and plan: needs better control, A1C: 8.3 (4) Vascular dementia: Status: Acute Assessment and plan: stable. hard to assess from language deficit from the new stroke. EEG showed no epileptiform discharges
[2024-02-25] VITALS (9 sets, daily range): BP systolic 121–164; BP diastolic 70–89; PULSE 60–105; RESP 16–96; TEMP 36.6–37.2; O2SAT 92–97; BMI 23.2
--- NOTE | 2024-02-25 00:15 | ESPR_ITS ---
RE: BALJIT SUNSHINE : 1935 DATE OF SERVICE: 02/24/2024 SUBJECTIVE: Baljit Sunshine is an 88-year-old male with a history of CAD, status post multiple stents placed only recently, admitted to the hospital with neurologic symptoms mainly speech issues, bilateral _cerebral _ dysfunction. The patient had multiple imaging studies including MRI scan scan, he had large areas of acute infarction, left posterior temporal, posterior parietal, and left occipital lobes, smaller foci of acute infarction, high left parietal lobe as well. There is also occlusion of the distal M1 segment of the left middle cerebral artery. The patient appears to have either thrombotic stroke or embolism, but the transesophageal echo was normal. It could have been a small thrombus that occluded the middle cerebral artery on the left side. So clearly, the patient suffered a stroke with major effect of the speech. Clinical examination still has a significant speech problems, expressive aphasia. He also continues to be weak. He is not able to ambulate that well today because of some incoordination as well. OBJECTIVE: Vital Signs: His exam shows blood pressure 139/67, pulse 80. Neck: Supple. No JVD. Lungs: Clear. Heart: Sounds irregular. Abdomen: Thin and soft. Extremities: Mild edema. /Rectal: Not performed. Skin: Normal. ASSESSMENT: 1. Status post multivessel stent placement, most recently right coronary artery stent placement. 2. Stroke involving left parietal occipital lobes with left M1 segment of the middle cerebral artery occlusion. 3. Atrial fibrillation, chronic with negative transesophageal echocardiogram. 4. Hypertension. RECOMMENDATIONS: The patient will continue with physical therapy tomorrow. The patient clearly suffers stroke, possibly embolic presumably since the patient has underlying afib with pacemaker rhythm. He was given triple therapy, Eliquis as well as Plavix 75 mg daily and low-dose aspirin. The patient may require extended hospitalization until the patient is able to ambulate or may have to go to a longterm facility for physical therapy and speech therapy. DT: 22:45:31 TT: 00:06:00 Ref: [id number] - TID: [id number] MTDD
[2024-02-25 05:28] LABS: Basophils % (Auto) 1 % (0-2.5); Eosinophils # (Auto) 0.3 Thou/mm3 (0.0-0.5); Eosinophils % (Auto) 4 % (0-10); Hematocrit 39.3 % (41.0-53.0); Hemoglobin 13.6 g/dL (13.5-16.0); Immature Granulocytes % (Auto) 0 % (0-0); Immature Granulocytes Auto 0.03 Thou/mm3 (0.00-0.00); Lymphocytes # (Auto) 1.3 Thou/mm3 (1.0-4.8); Lymphocytes % (Auto) 17 % (10-50); Mean Corpuscular HGB Conc 34.6 g/dl (31.0-37.0); Mean Corpuscular Hemoglobin 30.6 pg (25.0-35.0); Mean Corpuscular Volume 88 fL (80-100); Monocytes # (Auto) 0.9 Thou/mm3 (0.0-0.8); Monocytes % (Auto) 11 % (0-12); Neutrophils # (Auto) 5.1 Thou/mm3 (1.8-7.7); Neutrophils % (Auto) 67 % (37-80); Nucleated Red Blood Cell % 0 /100 WBC (0); Platelet Count 266 Thou/mm3 (140-440); RDW Standard Deviation 45.7 fL (35.1-43.9); Red Blood Count 4.45 Miln/mm3 (4.50-5.90); White Blood Count 7.6 Thou/mm3 (3.8-10.6)
[2024-02-25 06:19] LABS: Alanine Aminotransferase 14 U/L (10-49); Albumin, Serum 3.8 gm/dL (3.4-4.8); Albumin/Globulin Ratio 1.7 (1.2-2.2); Alkaline Phosphatase 58 U/L (46-116); Anion Gap 8 (7-16); Aspartate Amino Transferase 17 U/L (0-34); BUN/Creatinine Ratio 12 Ratio (12-20); Bilirubin,Total 0.6 mg/dL (0.3-1.2); Blood Urea Nitrogen 12 mg/dL (9-23); Calcium 9.4 mg/dL (8.3-10.6); Calcium (Corrected) 9.6 mg/dL (8.5-10.1); Carbon Dioxide 25.7 mMol/L (20.0-31.0); Chloride 104 mMol/L (98-107); Estimated Creatinine Clearance 52.7 mL/min (>60); Globulin 2.3 gm/dL (2.3-3.5); Glucose 229 mg/dL (74-106); Osmolality,Calculated 282 (275-295); Potassium 4.3 mMol/L (3.4-5.1); Sodium 138 mMol/L (136-145); Total Protein 6.1 gm/dL (5.7-8.2); eGFR > 60 See Note
[2024-02-25] MEDS: PANTOPRAZOLE INJ 40 MG VIAL IVP (08:59)
[2024-02-25] MEDS: ASPIRIN EC 81 MG TABEC PO (09:00)
[2024-02-25] MEDS: CLOPIDOGREL BISULFATE 75 MG TABLET PO (09:00)
[2024-02-25] MEDS: APIXABAN 2.5 MG TABLET PO ×2 (09:00→20:15)
[2024-02-25] MEDS: DOCUSATE SOD 100 MG CAPSULE PO (09:00)
[2024-02-25] MEDS: INSULIN GLARGINE (Lantus) 5 UNIT/0.05 ML (PER 5 UNITS) 10 UNIT SC (09:00)
[2024-02-25] MEDS: INSULIN LISPRO (AdmeLOG) 1 UNIT/0.01 ML UNIT SC ×3 (09:02→17:48)
--- NOTE | 2024-02-25 19:03 | PD.RESPRO ---
Documentation for date of: 02/25/24 Subjective Subjective Interval history: Patient seen today at the bedside awake, alert but persistatnt expressive aphasia. Son and daughter in law present at bedside, questions answered, MRI results were discussed, family wanted pt to stay for today and will decide on SNF vs home PT. Exam Vital Signs Temp Pulse Resp BP Pulse Ox O2 Del Method O2 Flow Rate 98.9 F 64 17 134/71 H 95 Room Air 2 02/25/24 16:00 02/25/24 16:00 02/25/24 16:00 02/25/24 16:00 02/25/24 16:00 02/25/24 16:00 02/23/24 14:30 Narrative Exam Physical Exam GENERAL: NAD HEENT: Moist mucosa. Eyes open, symmetrical, & clear CARDIO: Heart RRR, no obvious murmurs PULM: No noted coughing/dyspnea CTA B/L, no R/W/R GI: Abdomen soft, nondistended, no pain on palpation. BSx4 SKIN/MSK/EXT: No wounds/rashes/edema/amputations, no pain on palpation. Pedal pulses present B/L NEURO: Able to move all 4 extremities Objective Labs 02/26/24 04:29 02/26/24 04:29 Labs: Laboratory Results - last 24 hr 02/24/24 02/25/24 18:12 04:37 WBC 7.6 RBC 4.45 L Hgb 13.6 Hct 39.3 L MCV 88 MCH 30.6 MCHC 34.6 RDW Std Deviation 45.7 H Plt Count 266 Neut % (Auto) 67 Lymph % (Auto) 17 [place] % (Auto) 11 Eos % (Auto) 4 Baso % (Auto) 1 Neut # (Auto) 5.1 Lymph # (Auto) 1.3 [place] # (Auto) 0.9 H Eos # (Auto) 0.3 Baso # (Auto) 0.0 Immature Gran # (Auto) 0.03 H Absolute Nucleated RBC 0.00 Immature Gran % 0 Nucleated RBC % 0 Sodium 138 Potassium 4.3 Chloride 104 Carbon Dioxide 25.7 Anion Gap 8 BUN 12 Creatinine 1.0 Estim Creat Clear Calc 52.7 L eGFR > 60 BUN/Creatinine Ratio 12 Glucose 229 H Calculated Osmolality 282 Calcium 9.4 Corrected Calcium 9.6 Magnesium 2.0 Total Bilirubin 0.6 AST 17 ALT 14 Alkaline Phosphatase 58 Total Protein 6.1 Albumin 3.8 Globulin 2.3 Albumin/Globulin Ratio 1.7 Ur Collection Type Clean Catch Urine Color Lt-Yellow Urine Clarity Clear Urine pH 5.5 Ur Specific [place] 1.012 Urine Protein Negative Urine Glucose (UA) Negative Urine Ketones Negative Urine Blood 2+ A Urine Nitrite Negative Urine Bilirubin Negative Urine Urobilinogen (Auto) Negative Ur Leukocyte Esterase Positive Urine RBC 11 H Urine WBC 146 H Ur Squamous Epith Cells 2 Urine Bacteria None Hyaline Casts < 1 Quality Measures Quality Measures VTE prophylaxis Advance care planning discussed with:: child Assessment & Plan Assessment Current Active Medications: Generic Name Dose Route Start Last Admin Trade Name Freq PRN Reason Stop Dose Admin Acetaminophen 650 mg 02/22/24 16:25 Acetaminophen 325 Mg Tablet PO 03/23/24 16:24 Q6H PRN Fever >100.5 Acetaminophen 650 mg 02/22/24 16:25 Acetaminophen 325 Mg Tablet PO 03/23/24 16:24 Q6H PRN PAIN SCALE 1-3 (mild Apixaban 2.5 mg 02/22/24 21:00 02/25/24 09:00 Apixaban 2.5 Mg Tablet PO 03/23/24 20:59 2.5 mg BID MI Administration Aspirin 81 mg 02/23/24 09:00 02/25/24 09:00 Aspirin Ec 81 Mg Tabec PO 03/24/24 08:59 81 mg QDAY MI Administration Atorvastatin Calcium 80 mg 02/22/24 21:00 02/24/24 20:37 Atorvastatin Calcium 20 Mg Tablet PO 03/23/24 20:59 80 mg HS MI Administration Clopidogrel Bisulfate 75 mg 02/23/24 09:00 02/25/24 09:00 Clopidogrel Bisulfate 75 Mg Tablet PO 03/24/24 08:59 75 mg QDAY MI Administration Dextrose 50 ml 02/22/24 16:36 Dextrose 50%-Water Inj 50 Ml Syringe IV 03/23/24 16:35 Q15MIN PRN BG <50 OR BG <70 & pt unresponsive Dextrose 25 ml 02/22/24 16:36 Dextrose 50%-Water Inj 50 Ml Syringe IV 03/23/24 16:35 Q15MIN PRN BG 50-70 responsive npo pt Docusate Sodium 100 mg 02/23/24 09:00 02/25/24 09:00 Docusate Sod 100 Mg Capsule PO 03/24/24 08:59 100 mg QDAY MI Administration Protocol Glucagon 1 mg 02/22/24 16:36 Glucagon Inj 1 Mg Vial IM Q15MIN PRN BG <70, and no IV access Insulin Glargine 10 unit 02/23/24 09:00 02/25/24 09:00 Insulin Glargine (Lantus) 5 Unit/0.05 Ml (Per 5 Units) SC 03/24/24 08:59 10 unit QDAY MI Administration Insulin Human Lispro 0 unit 02/22/24 17:00 02/25/24 17:48 Insulin Lispro (Admelog) 1 Unit/0.01 Ml Unit SC 03/23/24 16:59 2 unit AC MI Administration Protocol Ondansetron HCl 4 mg 02/22/24 16:25 Ondansetron Inj 2 Mg/Ml Inj 2 Ml IV 03/23/24 16:24 Q6H PRN NAUSEA OR VOMITING Protocol Pantoprazole Sodium 40 mg 02/23/24 09:00 02/25/24 08:59 Pantoprazole Inj 40 Mg Vial IVP 03/24/24 08:59 40 mg QDAY MI Administration Plan 88-year-old male with past medical history of hypertension, CAD status post stents x 5, dementia, Parkinson's disease, diabetes, prostate cancer status post TURP procedure, atrial fibrillation presented to the ED from [facility] due to incomprehensible speech and slurred speech. Admitted for stroke workup #Acute ischemic stroke This morning 02/22/2024 around 9:30 AM, daughter received a call from caregiver stating that the patient was altered not oriented to time, person or place and was having difficulty speaking. Patient was also noted to have episodes of blank stares required to be shaken to respond Around 11 AM daughter saw the patient and noticed the patient was having word salad and was slurring his words. On examination patient is having word salad but is understanding CT head was done and showed Negative for acute hemorrhage, mass effect or midline shift. Head/neck CTA showed No significant neck arterial stenoses Short segment 70% stenosis distal M1 segment right middle cerebral artery Markedly reduced caliber and opacification left posterior cerebral artery NIHSS: 9 on admission In the ED patient was given Bolus with Clopidogrel 300 mg bolus x1 A1c 8.3, TSH within normal limits, B12 normal - MRI Brain shows Large areas of acute infarction left posterior temporal posterior parietal and left occipital lobe, Smaller foci of acute infarction in the high left parietal lobe, Occlusion of the distal M1 segment left middle cerebral artery - Negative SRUTHI with bubble study - High intensity statin - on aspirin 81mg, plavix 75mg and eliquis 2.5 mg per cardiology recommendations. - HOB >30 degrees - Neuro Checks q4h - HOB>30 - Aspiration precautions - pending physical therapy eval - Neurology, Dr. Lozano consulted, appreciate recommendations #Dementia #Parkinson Disease Patient has hx of parkinsons, dementia, however daughter states patient does not take any medications for these diangoses Was on medication at one point on time however patient declined and was discontinued - f/u Neuro recommendations ? #Hypertension #CAD s/p stents #Atrial fibrillation - resume anti-hypertensives when appropiate - Aspirin + Plavix - Cardiology, Dr. Andersen, appreciate recommendations #Diabetes A1c 8.3 - ssi - hypoglycemic protocol in place #Hx of prostate cancer s/p TURP - monitor for now The plan of care was discussed with my attending physician DO Ander Medina MD PGY2 This document was completed utilizing speech recognition software. Grammatical errors, random word insertions, pronoun errors, and incomplete sentences are an occasional consequence of this system due to software limitations, ambient noise, and hardware issues. Any formal questions or concerns about the content, text or information contained within the body of this dictation should be directly addressed to the provider for clarification. Disposition: Telemetry Fluids: None Feeding: NPO for SRUTHI Gastric Ulcer prophylaxis: none CODE STATUS: DNR Attending Provider Attestation/Addendum Teresita Monterroso DO, attest that I was physically present for the [place] portions of the service and evaluated the patient with the resident and I reviewed and discussed the case with the resident and agree with the resident's findings and plans of care as documented above Patient seen and evaluated this AM. He remains confused, but able to answer yes/no to simple questions. Pending placement. No acute events overnight otherwise.
[2024-02-25] MEDS: ATORVASTATIN CALCIUM 20 MG TABLET 80 MG PO (20:15)
[2024-02-26] VITALS (8 sets, daily range): BP systolic 138–156; BP diastolic 74–100; PULSE 60–83; RESP 16–92; TEMP 36.6–37.6; O2SAT 92–96
[2024-02-26 05:32] LABS: Basophils # (Auto) 0.1 Thou/mm3 (0.0-0.2); Basophils % (Auto) 1 % (0-2.5); Eosinophils # (Auto) 0.3 Thou/mm3 (0.0-0.5); Eosinophils % (Auto) 4 % (0-10); Hematocrit 41.3 % (41.0-53.0); Hemoglobin 14.6 g/dL (13.5-16.0); Immature Granulocytes % (Auto) 0 % (0-0); Immature Granulocytes Auto 0.02 Thou/mm3 (0.00-0.00); Lymphocytes # (Auto) 1.4 Thou/mm3 (1.0-4.8); Lymphocytes % (Auto) 17 % (10-50); Mean Corpuscular HGB Conc 35.4 g/dl (31.0-37.0); Mean Corpuscular Hemoglobin 31.1 pg (25.0-35.0); Mean Corpuscular Volume 88 fL (80-100); Monocytes % (Auto) 12 % (0-12); Neutrophils # (Auto) 5.4 Thou/mm3 (1.8-7.7); Neutrophils % (Auto) 66 % (37-80); Nucleated Red Blood Cell % 0 /100 WBC (0); Platelet Count 266 Thou/mm3 (140-440); RDW Standard Deviation 45.3 fL (35.1-43.9); White Blood Count 8.2 Thou/mm3 (3.8-10.6)
[2024-02-26 06:20] LABS: Alanine Aminotransferase 13 U/L (10-49); Albumin/Globulin Ratio 1.6 (1.2-2.2); Alkaline Phosphatase 63 U/L (46-116); Anion Gap 8 (7-16); Aspartate Amino Transferase 16 U/L (0-34); BUN/Creatinine Ratio 14 Ratio (12-20); Bilirubin,Total 0.8 mg/dL (0.3-1.2); Blood Urea Nitrogen 14 mg/dL (9-23); Calcium 9.9 mg/dL (8.3-10.6); Calcium (Corrected) 9.9 mg/dL (8.5-10.1); Carbon Dioxide 25.7 mMol/L (20.0-31.0); Chloride 103 mMol/L (98-107); Estimated Creatinine Clearance 52.7 mL/min (>60); Globulin 2.5 gm/dL (2.3-3.5); Glucose 170 mg/dL (74-106); Magnesium 1.7 mg/dL (1.6-2.6); Osmolality,Calculated 278 (275-295); Potassium 4.2 mMol/L (3.4-5.1); Sodium 137 mMol/L (136-145); Total Protein 6.5 gm/dL (5.7-8.2); eGFR > 60 See Note
[2024-02-26] MEDS: ASPIRIN EC 81 MG TABEC PO (08:23)
[2024-02-26] MEDS: PANTOPRAZOLE INJ 40 MG VIAL IVP (08:23)
[2024-02-26] MEDS: APIXABAN 2.5 MG TABLET PO ×2 (08:23→20:29)
[2024-02-26] MEDS: DOCUSATE SOD 100 MG CAPSULE PO (08:23)
[2024-02-26] MEDS: CLOPIDOGREL BISULFATE 75 MG TABLET PO (08:23)
[2024-02-26] MEDS: INSULIN LISPRO (AdmeLOG) 1 UNIT/0.01 ML UNIT SC ×3 (08:33→17:33)
[2024-02-26] MEDS: INSULIN GLARGINE (Lantus) 5 UNIT/0.05 ML (PER 5 UNITS) 10 UNIT SC (08:35)
--- NOTE | 2024-02-26 13:50 | PD.ADDDSCHGE ---
Addendum Discharge Addendum Date of report being addended: 02/26/24 Narrative: Patient remained hospitalized with medical regimen being continued as previously documented. Patient is pending placement to residential facility to undergo rehabilitative services. Patient is challenging discharge and we will await resolution. Patient will continue with daily physical therapy until discharge Plan of care discussed with supervising attending Dr. Roshni Alonso M.D. PGY-3
--- NOTE | 2024-02-26 16:05 | PC.SS ---
Addendum entered by Jenny Lunsford 02/26/24 18:30: SS contacted by patient's son Issac, he provided [facility] Case # [id number]. SS also received receipt fax from [employer], EMR terrazas: [id number]. Patient's chart uploaded to [employer] for review. Original Note: SS contacted patient's son Issac to confirm discharge plan. Issac reported patient still needed to see PT and is not comfortable with patient discharging today. Dr. Barakat informed of patient's son Issac's concerns, patient is medically clear for discharge. IMM discussed with patient's son Issac and he stated he would be appealing discharge. [facility] contact number [phone] provided to Issac and Krystle (patient's DIL) via telephone. Verbal consent provided for IMM form signature.
[2024-02-26] MEDS: ATORVASTATIN CALCIUM 20 MG TABLET 80 MG PO (20:29)
--- NOTE | 2024-02-26 23:35 | PD.VPROG1 ---
Telemedicine visit statement This visit was conducted with the use of interactive audio and video telecommunications system that permits real time communication between the patient and the provider. Patient's verbal consent for virtual visit was obtained on 02/26/24 at 2335. Documentation for date of: 02/26/24 Subjective Subjective Interval history: Patient is in [facility], continues to have aphasia, reportedly somewhat lethargic, likely from tiredness. Tolerating oral diet well. Virtual exam Vital Signs Temp Pulse Resp BP Pulse Ox O2 Del Method O2 Flow Rate 99.6 F 63 21 H 142/77 H 93 L Room Air 2 02/26/24 20:00 02/26/24 20:00 02/26/24 20:00 02/26/24 20:00 02/26/24 20:00 02/26/24 20:00 02/26/24 12:00 Objective Labs 02/26/24 04:29 02/26/24 04:29 Labs: Laboratory Results - last 24 hr 02/26/24 04:29 WBC 8.2 RBC 4.70 Hgb 14.6 Hct 41.3 MCV 88 MCH 31.1 MCHC 35.4 RDW Std Deviation 45.3 H Plt Count 266 Neut % (Auto) 66 Lymph % (Auto) 17 [place] % (Auto) 12 Eos % (Auto) 4 Baso % (Auto) 1 Neut # (Auto) 5.4 Lymph # (Auto) 1.4 [place] # (Auto) 1.0 H Eos # (Auto) 0.3 Baso # (Auto) 0.1 Immature Gran # (Auto) 0.02 H Absolute Nucleated RBC 0.00 Immature Gran % 0 Nucleated RBC % 0 Sodium 137 Potassium 4.2 Chloride 103 Carbon Dioxide 25.7 Anion Gap 8 BUN 14 Creatinine 1.0 Estim Creat Clear Calc 52.7 L eGFR > 60 BUN/Creatinine Ratio 14 Glucose 170 H D Calculated Osmolality 278 Calcium 9.9 Corrected Calcium 9.9 Magnesium 1.7 Total Bilirubin 0.8 AST 16 ALT 13 Alkaline Phosphatase 63 Total Protein 6.5 Albumin 4.0 Globulin 2.5 Albumin/Globulin Ratio 1.6 Assessment & Plan Problem List (1) Acute CVA (cerebrovascular accident): Status: Acute Assessment and plan: still with residual aphasia Continue with ASA, plavix and Eliquis as per cardiology recs. Family wants him to be discharged home with home health instead of acute rehab. Needs Speech therapy. (2) Vascular dementia: Status: Chronic Assessment and plan: at baseline, hard to assess from aphasia. (3) Diabetes mellitus: Status: Chronic Assessment and plan: needs better control (4) Coronary artery disease: Status: Chronic Assessment and plan: stable s/p recent PCI
[2024-02-27] VITALS (7 sets, daily range): BP systolic 131–152; BP diastolic 68–94; PULSE 60–64; RESP 17–22; TEMP 36.1–37.6; O2SAT 91–100
--- NOTE | 2024-02-27 01:57 | ESPR_ITS ---
RE: BALJIT SUNSHINE : 1935 DATE OF SERVICE: 02/25/2024 SUBJECTIVE: Baljit Sunshine was admitted to the hospital with speech problems, mostly expressive in comprehension, has multiple strokes, mostly in the left side occipital and parietal stroke, doing fairly well. He is still having some issues, but no chest pain, shortness of breath . The patient has been receiving both Plavix and aspirin. DIAGNOSTIC DATA: MRI did confirm the strokes. RECOMMENDATIONS: Clinically, appears to be stable. Continue with the triple therapy with low-dose aspirin, Plavix, and low-dose Eliquis for now. DT: 23:30:05 TT: 01:24:00 Ref: [id number] - TID: [id number] MTDD
[2024-02-27 05:51] LABS: Basophils % (Auto) 0 % (0-2.5); Eosinophils % (Auto) 0 % (0-10); Hematocrit 44.7 % (41.0-53.0); Hemoglobin 15.3 g/dL (13.5-16.0); Immature Granulocytes % (Auto) 0 % (0-0); Immature Granulocytes Auto 0.04 Thou/mm3 (0.00-0.00); Lymphocytes # (Auto) 0.5 Thou/mm3 (1.0-4.8); Lymphocytes % (Auto) 5 % (10-50); Mean Corpuscular HGB Conc 34.2 g/dl (31.0-37.0); Mean Corpuscular Hemoglobin 30.9 pg (25.0-35.0); Mean Corpuscular Volume 90 fL (80-100); Monocytes # (Auto) 0.9 Thou/mm3 (0.0-0.8); Monocytes % (Auto) 9 % (0-12); Neutrophils # (Auto) 8.6 Thou/mm3 (1.8-7.7); Neutrophils % (Auto) 86 % (37-80); Nucleated Red Blood Cell % 0 /100 WBC (0); Platelet Count 251 Thou/mm3 (140-440); RDW Standard Deviation 46.6 fL (35.1-43.9); Red Blood Count 4.95 Miln/mm3 (4.50-5.90); White Blood Count 9.9 Thou/mm3 (3.8-10.6)
[2024-02-27 06:23] LABS: Alanine Aminotransferase 14 U/L (10-49); Albumin, Serum 4.1 gm/dL (3.4-4.8); Albumin/Globulin Ratio 1.5 (1.2-2.2); Alkaline Phosphatase 65 U/L (46-116); Anion Gap 12 (7-16); Aspartate Amino Transferase 21 U/L (0-34); BUN/Creatinine Ratio 14 Ratio (12-20); Bilirubin,Total 0.8 mg/dL (0.3-1.2); Blood Urea Nitrogen 15 mg/dL (9-23); Carbon Dioxide 22.5 mMol/L (20.0-31.0); Chloride 100 mMol/L (98-107); Creatinine (Component) 1.1 mg/dL (0.6-1.3); Estimated Creatinine Clearance 47.9 mL/min (>60); Globulin 2.8 gm/dL (2.3-3.5); Glucose 273 mg/dL (74-106); Magnesium 1.7 mg/dL (1.6-2.6); Osmolality,Calculated 279 (275-295); Potassium 4.6 mMol/L (3.4-5.1); Sodium 134 mMol/L (136-145); Total Protein 6.9 gm/dL (5.7-8.2); eGFR > 60 See Note
[2024-02-27] MEDS: INSULIN LISPRO (AdmeLOG) 1 UNIT/0.01 ML UNIT SC ×3 (07:37→17:06)
[2024-02-27] MEDS: Magnesium Sulfate 4 GM Ivpb 4 GM/50 ML BAG IV (07:38)
--- NOTE | 2024-02-27 08:24 | PC.SS ---
Follow up note: Urbano sarabia is clinical review
--- NOTE | 2024-02-27 11:21 | XR_ITS ---
Examination: CT brain head without contrast. 2-D sagittal coronal reconstructions Date and time of exam:February 27, 2024 at 1227 hours Comparison February 23, 2024 INDICATIONS: Stroke alert February 22, 2024, onset focal neurologic deficit including altered mental status, brain MRI February 24, 2024 large areas acute infarction left posterior temporal parietal lobe and left occipital lobe with smaller acute infarcts high left parietal lobe CTDI: vol (mGy):20.7 DLP: (mGycm):976 Technique: Multiple CT axial sections of the brain have been obtained, 5 mm slice thickness. Contrast has not been administered. 2-D sagittal, coronal reconstructions have been obtained Low dose protocols were performed. One or more of the following dose reduction techniques were used; automated exposure control, adjustment of the mA and/or KV according to patient size, use of iterative reconstruction technique. Findings: Large acute infarct left occipital lobe Axial image 23 demonstrates 25 x 18 mm focus of hemorrhagic transformation in the left posterior temporal occipital lobe No midline shift of the frontal horns Cranial vault intact with prominent right maxillary sinusitis IMPRESSION: Large acute infarct left occipital lobe 25 18 mm focus mild hemorrhagic transformation in the left posterior temporal occipital lobe
[2024-02-27 12:06] LABS: Base Excess 2 (-3-3); HCO3 26 mEq/L (20-26); Inspired Oxygen, FIO2 21 %; O2 Saturation 95 % (91-98); PCO2 36 mmHg (32.0-48.0); PO2 68 mmHg (83-108); pH, Arterial 7.46 (7.35-7.45)
[2024-02-27 12:08] LABS: Allen Test Performed/OK; Puncture Site Right Radial
--- NOTE | 2024-02-27 13:39 | PC.SS ---
SS met with pt and his family (daughter and son) and provided them with verbal choices for SNF from [facility] [place]. SS provided dtr with the [facility] and [facility] information and the [facility] as [facility] [address] [id number] Retirement Facility Yes 02/24/2024 16:03 02/24/2024 15:59 We can accept this patient. Thank you for your referral (2) [facility] [address], [place] [id number] Retirement Facility 02/24/2024 15:59 (1) [facility] [address] [place] [address], [place] [phone] Retirement Facility Yes 02/25/2024 12:48 02/24/2024 15:59 We can accept this patient. Thank you for your referral (1) [facility] [address] [place] [address] Retirement Facility Yes 02/24/2024 16:01 02/24/2024 15:59 We can accept this patient. Thank you for your referral (1) [facility] [address] [place] [address] Retirement Facility Yes 02/24/2024 16:00 02/24/2024 15:59 We can accept this patient. Thank you for your referral (2) [facility] [address] [place], [place] [phone] Retirement Facility No
--- NOTE | 2024-02-27 15:09 | ESPR_ITS ---
Documentation for date of: 02/27/24 Senior resident attestation: The patient is an 88-year-old male with a past medical history of HTN, CAD s/p PCI, recent PCI February 2024, history of A-fib, history of prostate cancer status post TURP, history of Parkinson disease and dementia who was brought in from a senior living due to chief complaint of slurred speech. Of note patient had PCI 24 hours ago, per family patient has a history of becoming loopy following the procedures requiring IV sedation, but the symptoms lasted for more than 24 hours so they brought him to the emergency room. CT head showed interval acute infarct nonhemorrhagic, left occipital lobe. CTA head and neck showed 70% stenosis distal M1 segment of the right middle cerebral artery, as well as markedly reduced caliber and opacification of the left posterior cerebral artery. Echo was ordered which was negative for PFO, EF 55 to 60%. MRI brain findings consistent with acute ischemic stroke. During the course of hospitalization, the patient's mental status stayed at the baseline and GCS 15/15, but following the stroke patient maintained expressive aphasia likely due to involvement of Broca's area. Initially plan for discharge, but discharge is resolved due to family making arrangements at senior living facility. On 02/27/2024, patient was noted to be excessively drowsy and hard to wake from sleep. Repeat CT head was ordered which showed hemorrhagic conversion of ischemic infarct. Aspirin and Eliquis were withheld, Plavix was continued after discussing with neurology and cardiology. Spoke to patient's son Issac over the phone, who reported that family has come to a decision that if patient does not improve within a few days they may consider hospice. #Acute ischemic stroke with hemorrhagic conversion?was on aspirin, Plavix, and Eliquis 2.5 mg, and possibility of hemorrhage was discussed earlier during the hospital course, shared decision was made after talking to neurologist Dr Lozano as well as bluing oven tender Dr. Andersen and the family, to continue with aspirin and Plavix as well as Eliquis due to recent PCI, less than 48 hours ago as well as history of A-fib likely leading to embolic stroke. Following hemorrhagic conversion, with acute mental status change, will continue Plavix 75 mg/day only. #History of CAD status post PCI February 2024?patient was on aspirin and Brilinta, following diagnosis of acute ischemic stroke, Brilinta was discontinued and patient was started on aspirin, and Plavix and Eliquis. #History of A-fib?rate controlled, Eliquis for anticoagulation was started initially, now discontinued. #History of Parkinson disease #History of dementia #History of prostate cancer s/p TURP #History of diabetes mellitus Patient evaluated and examined at the bedside, plan of care discussed with rest of the team including my attending physician, except as noted. Quresh PGY2 Subjective Subjective Interval history: Patient seen today at the bedside found somnolent and lethargic, pupils reactive to light. No overnight events reported. Family at bedside says the patient is not at baseline is very lethargic. Nurse also reported patient is unable to take any of his medications due to mental status. Head CT was ordered showed Large acute infarct left occipital lobe 25x18 mm focus mild hemorrhagic transformation in the left posterior temporal occipital lobe. Spoke to Neurology recommended stopping triple therapy (ASA+ Plavix+ Eliquis). Also spoke to Cardiology, they recommend holding Aspirin and Eliquis but keep Plavix at this time as patient has recent cardiac stent placement. Spoke to son over the phone updated on recent imaging and current mental status, stated that if patient does not improve in the next few days will consider placing patient on hospice care. Exam Vital Signs Temp Pulse Resp BP Pulse Ox O2 Del Method O2 Flow Rate 98.7 F 60 22 H 142/68 H 95 Room Air 2 02/27/24 12:00 02/27/24 12:02/27/24 12:02/27/24 12:02/27/24 12:02/27/24 12:02/26/24 12:00 Narrative Exam Physical Exam GENERAL: NAD, grimaces to pain, does not open eyes, nonverbal HEENT: Moist mucosa. Eyes open, symmetrical, & clear CARDIO: Heart RRR, no obvious murmurs PULM: No noted coughing/dyspnea CTA B/L, no R/W/R GI: Abdomen soft, nondistended, no pain on palpation. BSx4 SKIN/MSK/EXT: No wounds/rashes/edema/amputations, no pain on palpation. Pedal pulses present B/L NEURO: Able to grimace to pain Objective Labs 02/28/24 05:00 02/28/24 05:00 Labs: Laboratory Results - last 24 hr 02/27/24 02/27/24 05:19 12:00 WBC 9.9 RBC 4.95 Hgb 15.3 Hct 44.7 MCV 90 MCH 30.9 MCHC 34.2 RDW Std Deviation 46.6 H Plt Count 251 Neut % (Auto) 86 H Lymph % (Auto) 5 L [place] % (Auto) 9 Eos % (Auto) 0 Baso % (Auto) 0 Neut # (Auto) 8.6 H Lymph # (Auto) 0.5 L [place] # (Auto) 0.9 H Eos # (Auto) 0.0 Baso # (Auto) 0.0 Immature Gran # (Auto) 0.04 H Absolute Nucleated RBC 0.00 Immature Gran % 0 Nucleated RBC % 0 Puncture Site Right Radial ABG pH 7.46 H ABG pCO2 36 ABG pO2 68 L ABG HCO3 26 ABG O2 Saturation 95 ABG Base Excess 2 FiO2 21 Sodium 134 L Potassium 4.6 Chloride 100 Carbon Dioxide 22.5 Anion Gap 12 BUN 15 Creatinine 1.1 Estim Creat Clear Calc 47.9 L eGFR > 60 BUN/Creatinine Ratio 14 Glucose 273 H D Calculated Osmolality 279 Calcium 10.0 Corrected Calcium 10.0 Magnesium 1.7 Total Bilirubin 0.8 AST 21 ALT 14 Alkaline Phosphatase 65 Total Protein 6.9 Albumin 4.1 Globulin 2.8 Albumin/Globulin Ratio 1.5 ABG Interpretation ABG results: 02/27/24 12:00 ABG pH 7.46 H ABG pCO2 36 ABG pO2 68 L ABG HCO3 26 ABG O2 Saturation 95 ABG Base Excess 2 Quality Measures Quality Measures VTE prophylaxis Advance care planning discussed with:: patient Assessment & Plan Assessment Current Active Medications: Generic Name Dose Route Start Last Admin Trade Name Freq PRN Reason Stop Dose Admin Acetaminophen 650 mg 02/22/24 16:25 Acetaminophen 325 Mg Tablet PO 03/23/24 16:24 Q6H PRN Fever >100.5 Acetaminophen 650 mg 02/22/24 16:25 Acetaminophen 325 Mg Tablet PO 03/23/24 16:24 Q6H PRN PAIN SCALE 1-3 (mild Apixaban 2.5 mg 02/22/24 21:00 02/27/24 09:50 Apixaban 2.5 Mg Tablet PO 03/23/24 20:59 Not Given BID MI Aspirin 81 mg 02/23/24 09:00 02/27/24 09:50 Aspirin Ec 81 Mg Tabec PO 03/24/24 08:59 Not Given QDAY [facility] Atorvastatin Calcium 80 mg 02/22/24 21:00 02/26/24 20:29 Atorvastatin Calcium 20 Mg Tablet PO 03/23/24 20:59 80 mg HS MI Administration Clopidogrel Bisulfate 75 mg 02/23/24 09:00 02/27/24 09:50 Clopidogrel Bisulfate 75 Mg Tablet PO 03/24/24 08:59 Not Given QDAY [facility] Dextrose 50 ml 02/22/24 16:36 Dextrose 50%-Water Inj 50 Ml Syringe IV 03/23/24 16:35 Q15MIN PRN BG <50 OR BG <70 & pt unresponsive Dextrose 25 ml 02/22/24 16:36 Dextrose 50%-Water Inj 50 Ml Syringe IV 03/23/24 16:35 Q15MIN PRN BG 50-70 responsive npo pt Docusate Sodium 100 mg 02/23/24 09:00 02/27/24 09:50 Docusate Sod 100 Mg Capsule PO 03/24/24 08:59 Not Given QDAY [facility] Protocol Glucagon 1 mg 02/22/24 16:36 Glucagon Inj 1 Mg Vial IM Q15MIN PRN BG <70, and no IV access Insulin Glargine 15 unit 02/28/24 09:00 Insulin Glargine (Lantus) 5 Unit/0.05 Ml (Per 5 Units) SC 03/29/24 08:59 QDAY [facility] Insulin Human Lispro 0 unit 02/22/24 17:00 02/27/24 11:50 Insulin Lispro (Admelog) 1 Unit/0.01 Ml Unit SC 03/23/24 16:59 3 unit AC [facility] Administration Protocol Ondansetron HCl 4 mg 02/22/24 16:25 Ondansetron Inj 2 Mg/Ml Inj 2 Ml IV 03/23/24 16:24 Q6H PRN NAUSEA OR VOMITING Protocol Pantoprazole Sodium 40 mg 02/27/24 09:00 02/27/24 09:50 Pantoprazole 40 Mg Tablet PO 03/28/24 08:59 Not Given QDAY [facility] Trimethoprim/Sulfamethoxazole 1 tab 02/27/24 10:30 02/27/24 11:29 Trimethoprim/Sulfa 160/800 Ds Tablet PO 03/05/24 10:29 Not Given BID MI Plan 88-year-old male with past medical history of hypertension, CAD status post stents x 5, dementia, Parkinson's disease, diabetes, prostate cancer status post TURP procedure, atrial fibrillation presented to the ED from [facility] due to incomprehensible speech and slurred speech. Admitted for stroke workup # Acute ischemic stroke This morning 02/22/2024 around 9:30 AM, daughter received a call from caregiver stating that the patient was altered not oriented to time, person or place and was having difficulty speaking. Patient was also noted to have episodes of blank stares required to be shaken to respond Around 11 AM daughter saw the patient and noticed the patient was having word salad and was slurring his words. On examination patient is having word salad but is understanding CT head was done and showed Negative for acute hemorrhage, mass effect or midline shift. Head/neck CTA showed No significant neck arterial stenoses Short segment 70% stenosis distal M1 segment right middle cerebral artery Markedly reduced caliber and opacification left posterior cerebral artery NIHSS: 9 on admission In the ED patient was given Bolus with Clopidogrel 300 mg bolus x1 A1c 8.3, TSH within normal limits, B12 normal MRI brain shows Large areas of acute infarction left posterior temporal posterior parietal and left occipital lobe Smaller foci of acute infarction in the high left parietal lobe. Occlusion of the distal M1 segment left middle cerebral artery SRUTHI showed Negative bubble study. No evidence of PFO/ ASD or LA/RIMMA thrombus. Normal LV size and function. Estimated EF 55-60%. Normal RV size and function. Pacing wire present. Mild MR, AI. Trace TR. EEG abnormal This a.m. patient was found to be lethargic, somnolent, only responsive to pain with sternal rub not opening eyes ordered CT head and ABGs will follow-up F/u head Ct showed Large acute infarct left occipital lobe 25x18 mm focus mild hemorrhagic transformation in the left posterior temporal occipital lobe - High intensity statin - aspirin 81mg- on HOLD - plavix 75mg - HOB >30 degrees - Neuro Checks q4h - HOB>30 - Aspiration precautions - Neurology, Dr. Lozano consulted, appreciate recommendations #Staph Epidermidids UTI UCx positive for Staph epidermidis was on Bactrim however considering patients mentation he is unable to take PO - started on Ciprofloxacin IV #Dementia #Parkinson Disease Patient has hx of parkinsons, dementia, however daughter states patient does not take any medications for these diangoses Was on medication at one point on time however patient declined and was discontinued - f/u Neuro recommendations ? #Hypertension #CAD s/p stents #Atrial fibrillation - resume anti-hypertensives when appropiate - Aspirin and eliquis on HOLD - will keep Plavix for stent patency - Cardiology, Dr. Andersen, appreciate recommendations #Diabetes A1c 8.3 - ssi - hypoglycemic protocol in place #Hx of prostate cancer s/p TURP - monitor for now Case discussed with my senior Dr. Wolf PGY-[address] Roshni Barba MD PGY-1 Disposition: Telemetry Fluids: None Feeding: Dysphagia 3 Gastric Ulcer prophylaxis: none CODE STATUS: DNR Attending Provider Attestation/Addendum Teresita Monterroso, DO, attest that I was physically present for the [place] portions of the service and evaluated the patient with the resident and I reviewed and discussed the case with the resident and agree with the resident's findings and plans of care as documented above Patient seen and eval this a.m. He he appeared to be much more lethargic. Family was at bedside and stated that they last saw the patient last night. Patient was more alert at the beginning the night, but had been noticed to have trouble swallowing and no longer wanted to eat his dinner. Patient has since been very somnolent per nursing. Patient is difficult to arouse with sternal rub, but he will respond with one-word answers. Per chart review, patient had a GCS of 14 throughout the night, but at 8 AM it is documented as a GCS of 4. It is unclear if patient's mental status changed this morning or the night prior. CT head was done showing a25 x 18 mm focus of mild hemorrhagic transformation in the left posterior temporal occipital lobe. Neurology was made aware and recommended stopping his Eliquis, aspirin and Plavix. However, it is recommended by cardiology to continue just the Plavix at this time due to recent stent placement. Family is understanding of the risks of bleed. Will continue to monitor his mental status and repeat head CT this evening.
--- NOTE | 2024-02-27 15:58 | PC.SS ---
SS was informed by bedside nurse family is requesting to speak with SS. SS met with pt and family (dtr and son) who are now requesting pt to return home upon dc. Family is requesting pt d/c home with Hospice Services if he is unable to eat or drink. Family is requesting [facility]. Physician residents and Dr. Barakat are aware.
--- NOTE | 2024-02-27 16:14 | ESPR_ITS ---
<Statement entered by Nay Andersen MD - 03/01/24 13:05> I personally reviewed the patient with Dr. Cotton PGY 2 patient with doing well until yesterday there was some altered mental status and the patient had a CT scan of the head did have some hemorrhagic transformation of the occipital stroke and his anticoagulation being stopped including Eliquis will also continue only Plavix no aspirin for now there is slight increased risk of thrombosis of stents however LAD stents are more than 1 month old RCA was a simple procedure hopefully 1 antiplatelet drug therapy will be enough for now consent risk-benefit analysis explained to the patient's family. Documentation for date of: 02/27/24 Subjective Subjective Interval history: Patient seen and assessed at bedside. Patient noncooperative, only responsive to painful stimuli. Per family last well-known time was yesterday morning, and patient started refusing swallowing at night per nurse. Recent CT showing hemorrhagic conversion from recent stroke. Will adjust medications. Exam Vital Signs Temp Pulse Resp BP Pulse Ox O2 Del Method O2 Flow Rate 98.7 F 64 22 H 142/68 H 95 Room Air 2 02/27/24 12:00 02/27/24 15:50 02/27/24 12:00 02/27/24 12:00 02/27/24 12:00 02/27/24 12:00 02/26/24 12:00 Narrative Exam GENERAL: NAD, grimaces to pain, does not open eyes, nonverbal CARDIO: RRR, no obvious murmurs PULM: No noted coughing/dyspnea CTA B/L, no R/W/R GI: Abdomen soft, nondistended, no pain on palpation. NEURO: Grimaces to pain. Not able to follow commands. Objective Labs 02/27/24 05:19 02/27/24 05:19 Labs: Laboratory Results - last 24 hr 02/27/24 02/27/24 05:19 12:00 WBC 9.9 RBC 4.95 Hgb 15.3 Hct 44.7 MCV 90 MCH 30.9 MCHC 34.2 RDW Std Deviation 46.6 H Plt Count 251 Neut % (Auto) 86 H Lymph % (Auto) 5 L [place] % (Auto) 9 Eos % (Auto) 0 Baso % (Auto) 0 Neut # (Auto) 8.6 H Lymph # (Auto) 0.5 L [place] # (Auto) 0.9 H Eos # (Auto) 0.0 Baso # (Auto) 0.0 Immature Gran # (Auto) 0.04 H Absolute Nucleated RBC 0.00 Immature Gran % 0 Nucleated RBC % 0 Puncture Site Right Radial ABG pH 7.46 H ABG pCO2 36 ABG pO2 68 L ABG HCO3 26 ABG O2 Saturation 95 ABG Base Excess 2 FiO2 21 Sodium 134 L Potassium 4.6 Chloride 100 Carbon Dioxide 22.5 Anion Gap 12 BUN 15 Creatinine 1.1 Estim Creat Clear Calc 47.9 L eGFR > 60 BUN/Creatinine Ratio 14 Glucose 273 H D Calculated Osmolality 279 Calcium 10.0 Corrected Calcium 10.0 Magnesium 1.7 Total Bilirubin 0.8 AST 21 ALT 14 Alkaline Phosphatase 65 Total Protein 6.9 Albumin 4.1 Globulin 2.8 Albumin/Globulin Ratio 1.5 ABG Interpretation ABG results: 02/27/24 12:00 ABG pH 7.46 H ABG pCO2 36 ABG pO2 68 L ABG HCO3 26 ABG O2 Saturation 95 ABG Base Excess 2 Quality Measures Quality Measures VTE prophylaxis Advance care planning discussed with:: patient Assessment & Plan Assessment Current Active Medications: Generic Name Dose Route Start Last Admin Trade Name Freq PRN Reason Stop Dose Admin Acetaminophen 650 mg 02/22/24 16:25 Acetaminophen 325 Mg Tablet PO 03/23/24 16:24 Q6H PRN Fever >100.5 Acetaminophen 650 mg 02/22/24 16:25 Acetaminophen 325 Mg Tablet PO 03/23/24 16:24 Q6H PRN PAIN SCALE 1-3 (mild Apixaban 2.5 mg 02/22/24 21:00 02/27/24 09:50 Apixaban 2.5 Mg Tablet PO 03/23/24 20:59 Not Given BID MI Aspirin 81 mg 02/23/24 09:00 02/27/24 09:50 Aspirin Ec 81 Mg Tabec PO 03/24/24 08:59 Not Given QDAY MI Atorvastatin Calcium 80 mg 02/22/24 21:00 02/26/24 20:29 Atorvastatin Calcium 20 Mg Tablet PO 03/23/24 20:59 80 mg HS MI Administration Clopidogrel Bisulfate 75 mg 02/23/24 09:00 02/27/24 09:50 Clopidogrel Bisulfate 75 Mg Tablet PO 03/24/24 08:59 Not Given QDAY MI Dextrose 50 ml 02/22/24 16:36 Dextrose 50%-Water Inj 50 Ml Syringe IV 03/23/24 16:35 Q15MIN PRN BG <50 OR BG <70 & pt unresponsive Dextrose 25 ml 02/22/24 16:36 Dextrose 50%-Water Inj 50 Ml Syringe IV 03/23/24 16:35 Q15MIN PRN BG 50-70 responsive npo pt Docusate Sodium 100 mg 02/23/24 09:00 02/27/24 09:50 Docusate Sod 100 Mg Capsule PO 03/24/24 08:59 Not Given QDAY PENDING SALE TO [facility] Protocol Glucagon 1 mg 02/22/24 16:36 Glucagon Inj 1 Mg Vial IM Q15MIN PRN BG <70, and no IV access Ciprofloxacin/Dextrose 400 mg in 200 mls @ 200 mls/hr 02/27/24 16:05 Cipro Ivpb IV 03/05/24 16:04 Q12HR PENDING SALE TO [facility] Insulin Glargine 15 unit 02/28/24 09:00 Insulin Glargine (Lantus) 5 Unit/0.05 Ml (Per 5 Units) SC 03/29/24 08:59 QDAY PENDING SALE TO [facility] Insulin Human Lispro 0 unit 02/22/24 17:00 02/27/24 11:50 Insulin Lispro (Admelog) 1 Unit/0.01 Ml Unit SC 03/23/24 16:59 3 unit AC PENDING SALE TO [facility] Administration Protocol Ondansetron HCl 4 mg 02/22/24 16:25 Ondansetron Inj 2 Mg/Ml Inj 2 Ml IV 03/23/24 16:24 Q6H PRN NAUSEA OR VOMITING Protocol Pantoprazole Sodium 40 mg 02/27/24 09:00 02/27/24 09:50 Pantoprazole 40 Mg Tablet PO 03/28/24 08:59 Not Given QDAY PENDING SALE TO [facility] Plan Patient is an 88-year-old male with past medical history of hypertension, CAD status post stents x 5, dementia, Parkinson's disease, diabetes, prostate cancer status post TURP procedure, atrial fibrillation, and recent cardiac stent on 02-21-2024 that presented to the ED with signs and symptoms of stroke with slurred speech and left-sided hemiparesis. Cardiology consulted for recent catheterization and close monitoring due to past cardiac history. #CAD s/p PCI #History of A-fib #Hypertension Patient with recent stent placement now having hemorrhagic conversion from recent stroke. We will hold aspirin and Eliquis We will continue Plavix 75 mg given patient has less than 1 month since stent placement and there is a high chance of reocclusion without antiplatelet medication in the first month. May require goals of care discussions with family as condition is critical. #Stroke workup #Hemorrhagic stroke #Diabetes mellitus #Dementia #Prostate cancer #History of Parkinson's disease Continue management per primary team Case discussed with attending independent contractor Dr. Ganesh Cotton MD PGY3.
[2024-02-27] MEDS: CIPROFLOXACIN/D5w 400 MG IVPB 400 MG/200 ML BAG 200 MG IV (17:05)
--- NOTE | 2024-02-27 20:00 | XR_ITS ---
Examination: CT brain head without contrast. 2-D sagittal coronal reconstructions Date and time of exam:February 27, 2024 2026 hrs. Indications: Stroke alert this week, large acute infarct left occipital lobe with hemorrhagic transformation in the posterior left temporal occipital lobe on CT brain scan February 27, 2024 at 1227 hrs. CTDI: vol (mGy):46.9 DLP: (mGycm):998 Technique: Multiple CT axial sections of the brain have been obtained, 5 mm slice thickness. Contrast has not been administered. 2-D sagittal, coronal reconstructions have been obtained Low dose protocols were performed. One or more of the following dose reduction techniques were used; automated exposure control, adjustment of the mA and/or KV according to patient size, use of iterative reconstruction technique. Findings: Again noted large acute infarct left occipital lobe Stable hemorrhagic transformation in the posterior left temporal occipital lobe No significant mass effect No new areas of hemorrhage density Impression: Again noted large acute infarct left occipital lobe Stable hemorrhagic transformation in the posterior left temporal occipital lobe
--- NOTE | 2024-02-27 22:21 | PD.NEUROPROG ---
Documentation for date of: 02/27/24 Subjective Subjective Interval history: Patient was seen in telemetry today at the bedside. Continues to be somnolent and unresponsive since last night. Exam - Neurology Vital Signs Temp Pulse Resp BP Pulse Ox O2 Del Method O2 Flow Rate 99.7 F 63 21 H 131/87 H 92 L Room Air 2 02/27/24 16:00 02/27/24 16:00 02/27/24 16:00 02/27/24 16:00 02/27/24 16:00 02/27/24 16:00 02/26/24 12:00 Narrative Exam GENERAL APPEARANCE: Well hydrated, well-nourished in no acute distress. HEENT: Normocephalic, atraumatic, extraocular movements intact. Pupils: Equal reacting to light NECK: Supple, no JVD or bruits. CARDIOVASULAR: Heart: S1, S2 heard, regular without S3-S4 or murmur no rubs or gallops. LUNGS/CHEST: Clear to auscultation bilaterally. No rails, rhonchi, or wheezing. Normal inspection. ABDOMEN: Soft, nontender, with normal bowel sounds. No pulsatile masses. No rebound, rigidity, or guarding. Normal inspection and palpation. EXTREMITIES: Normal inspection and palpation. No edema, clubbing or cyanosis. SKIN: Warm and dry without rashes. Normal inspection. MUSCULOSKELETAL: No cervical, thoracic, lumbar or midline bony tenderness. Normal inspection. NEURO: somnolent, unresponsive to verbal commands or painful stimuli, brain stem function: intact, rest if the exam: Limited. no signs of meningeal irritation noted. PSYCHIATRIC: limited. Objective Labs 02/27/24 05:19 02/27/24 05:19 Labs: Laboratory Results - last 24 hr 02/27/24 02/27/24 05:19 12:00 WBC 9.9 RBC 4.95 Hgb 15.3 Hct 44.7 MCV 90 MCH 30.9 MCHC 34.2 RDW Std Deviation 46.6 H Plt Count 251 Neut % (Auto) 86 H Lymph % (Auto) 5 L [place] % (Auto) 9 Eos % (Auto) 0 Baso % (Auto) 0 Neut # (Auto) 8.6 H Lymph # (Auto) 0.5 L [place] # (Auto) 0.9 H Eos # (Auto) 0.0 Baso # (Auto) 0.0 Immature Gran # (Auto) 0.04 H Absolute Nucleated RBC 0.00 Immature Gran % 0 Nucleated RBC % 0 Puncture Site Right Radial ABG pH 7.46 H ABG pCO2 36 ABG pO2 68 L ABG HCO3 26 ABG O2 Saturation 95 ABG Base Excess 2 FiO2 21 Sodium 134 L Potassium 4.6 Chloride 100 Carbon Dioxide 22.5 Anion Gap 12 BUN 15 Creatinine 1.1 Estim Creat Clear Calc 47.9 L eGFR > 60 BUN/Creatinine Ratio 14 Glucose 273 H D Calculated Osmolality 279 Calcium 10.0 Corrected Calcium 10.0 Magnesium 1.7 Total Bilirubin 0.8 AST 21 ALT 14 Alkaline Phosphatase 65 Total Protein 6.9 Albumin 4.1 Globulin 2.8 Albumin/Globulin Ratio 1.5 ABG Interpretation ABG results: 02/27/24 12:00 ABG pH 7.46 H ABG pCO2 36 ABG pO2 68 L ABG HCO3 26 ABG O2 Saturation 95 ABG Base Excess 2 Assessment & Plan Assessment and plan (1) Acute CVA (cerebrovascular accident): Status: Acute Assessment and plan: Presenting with mixed aphasia, visual deficit without any motor or sensory symptoms. Loaded with Plavix by 404 Found!. Workup: Initial CT: negative for acute intracranial abnormality, CTA: short segment 70% stenosis distal M1 segment right middle cerebral artery Markedly reduced caliber and opacification left posterior cerebral artery; Repeat CT head showed large acute nonhemorrhagic infarct in the left occipital area. MRI brain from today showed extension of the infarction: Large areas of acute infarction left posterior temporal posterior parietal and left occipital lobe Smaller foci of acute infarction in the high left parietal lobe Occlusion of the distal M1 segment left middle cerebral artery Repeat CT head: radiologist reported hgic transformation in the left parietotemporal area. But in my opinion. Anyway, hold off on ASA, Plavix and Eliquis. Talked to the family to decide about the goals of care/aggressive medical mgt proceeding towards PEG tube for functional dysphagia versus comfort care with transfer to half-way /home with hospice. (2) Vascular dementia: Status: Chronic Assessment and plan: stable. hard to assess from language deficit from the new stroke. EEG showed no epileptiform discharges (3) Diabetes mellitus: Status: Chronic Assessment and plan: needs better control, A1C: 8.3 (4) Coronary artery disease: Status: Chronic Assessment and plan: Stable s/p PCI before admission,
[2024-02-28] VITALS (7 sets, daily range): BP systolic 129–150; BP diastolic 66–80; PULSE 60–65; RESP 16–20; TEMP 36.1–36.9; O2SAT 93–99
[2024-02-28 06:17] LABS: Basophils % (Auto) 0 % (0-2.5); Eosinophils % (Auto) 0 % (0-10); Hematocrit 39.9 % (41.0-53.0); Immature Granulocytes % (Auto) 1 % (0-0); Immature Granulocytes Auto 0.03 Thou/mm3 (0.00-0.00); Lymphocytes # (Auto) 0.4 Thou/mm3 (1.0-4.8); Lymphocytes % (Auto) 7 % (10-50); Mean Corpuscular HGB Conc 35.1 g/dl (31.0-37.0); Mean Corpuscular Hemoglobin 30.9 pg (25.0-35.0); Mean Corpuscular Volume 88 fL (80-100); Monocytes # (Auto) 0.5 Thou/mm3 (0.0-0.8); Monocytes % (Auto) 8 % (0-12); Neutrophils # (Auto) 5.2 Thou/mm3 (1.8-7.7); Neutrophils % (Auto) 84 % (37-80); Nucleated Red Blood Cell % 0 /100 WBC (0); Platelet Count 303 Thou/mm3 (140-440); RDW Standard Deviation 45.8 fL (35.1-43.9); Red Blood Count 4.53 Miln/mm3 (4.50-5.90); White Blood Count 6.1 Thou/mm3 (3.8-10.6)
[2024-02-28 06:57] LABS: Alanine Aminotransferase 16 U/L (10-49); Albumin, Serum 3.9 gm/dL (3.4-4.8); Albumin/Globulin Ratio 1.6 (1.2-2.2); Alkaline Phosphatase 57 U/L (46-116); Anion Gap 10 (7-16); Aspartate Amino Transferase 19 U/L (0-34); BUN/Creatinine Ratio 20 Ratio (12-20); Bilirubin,Total 0.6 mg/dL (0.3-1.2); Blood Urea Nitrogen 24 mg/dL (9-23); Calcium 9.7 mg/dL (8.3-10.6); Calcium (Corrected) 9.8 mg/dL (8.5-10.1); Carbon Dioxide 24.9 mMol/L (20.0-31.0); Chloride 100 mMol/L (98-107); Creatinine (Component) 1.2 mg/dL (0.6-1.3); Estimated Creatinine Clearance 42.1 mL/min (>60); Globulin 2.5 gm/dL (2.3-3.5); Glucose 284 mg/dL (74-106); Osmolality,Calculated 284 (275-295); Potassium 4.2 mMol/L (3.4-5.1); Sodium 135 mMol/L (136-145); Total Protein 6.4 gm/dL (5.7-8.2); eGFR 58 See Note
[2024-02-28] MEDS: INSULIN LISPRO (AdmeLOG) 1 UNIT/0.01 ML UNIT SC ×3 (07:55→17:55)
[2024-02-28] MEDS: INSULIN GLARGINE (Lantus) 5 UNIT/0.05 ML (PER 5 UNITS) 20 UNIT SC (08:00)
--- NOTE | 2024-02-28 08:45 | PC.CC ---
Per [facility] portal, Physician Review Completed on appeal [id number]. Anticipate outcome to be available later today.
--- NOTE | 2024-02-28 09:45 | PCS.ST ---
Diet changed to Dysphagia 2/reg liquids with strict precautions. Family verbalized and demonstrated understanding of eating/swallowing guidelines.
[2024-02-28] MEDS: CIPROFLOXACIN/D5w 400 MG IVPB 400 MG/200 ML BAG 200 MG IV ×2 (10:02→20:30)
[2024-02-28] MEDS: PANTOPRAZOLE 40 MG TABLET PO (10:03)
[2024-02-28] MEDS: DOCUSATE SOD 100 MG CAPSULE PO (10:03)
--- NOTE | 2024-02-28 12:13 | PD.RESPRO ---
Documentation for date of: 02/28/24 Senior resident attestation: The patient is an 88-year-old male with a past medical history of HTN, CAD s/p PCI, recent PCI February 2024, history of A-fib, history of prostate cancer status post TURP, history of Parkinson disease and dementia who [facility] a [facility] due to chief complaint of slurred speech. Of note patient had PCI 24 hours ago, per family patient has a history of becoming loopy following the procedures requiring IV sedation, but the symptoms lasted for more than 24 hours so they brought him to the emergency room. CT head showed interval acute infarct nonhemorrhagic, left occipital lobe. CTA head and neck showed 70% stenosis distal M1 segment of the right middle cerebral artery, as well as markedly reduced caliber and opacification of the left posterior cerebral artery. Echo was ordered which was negative for PFO, EF 55 to 60%. MRI brain findings consistent with acute ischemic stroke. During the course of hospitalization, the patient's mental status stayed at the baseline and GCS 15/15, but following the stroke patient maintained expressive aphasia likely due to involvement of Broca's area. Initially plan for discharge, but discharge is resolved due to family making arrangements at prison facility. On 02/27/2024, patient was noted to be excessively drowsy and hard to wake from sleep. Repeat CT head was ordered which showed hemorrhagic conversion of ischemic infarct. Aspirin and Eliquis were withheld, Plavix was continued after discussing with neurology and cardiology. Spoke to patient's son Issac over the phone, who reported that family has come to a decision that if patient does not improve within a few days they may consider hospice. #Acute ischemic stroke with hemorrhagic conversion?was on aspirin, Plavix, and Eliquis 2.5 mg, and possibility of hemorrhage was discussed earlier during the hospital course, shared decision was made after talking to neurologist Dr Lozano as well as nib adjuster Dr. Andersen and the family, to continue with aspirin and Plavix as well as Eliquis due to recent PCI, less than 48 hours ago as well as history of A-fib likely leading to embolic stroke. Following hemorrhagic conversion, with acute mental status change, will continue Plavix 75 mg/day only. #History of CAD status post PCI February 2024?patient was on aspirin and Brilinta, following diagnosis of acute ischemic stroke, Brilinta was discontinued and patient was started on aspirin, and Plavix and Eliquis. #History of A-fib?rate controlled, Eliquis for anticoagulation was started initially, now discontinued. #History of Parkinson disease- Spoke to Neurologist, noted she knows the patient from her clinic, has history of Parkinson disease but currently does not require medications. #History of dementia #History of prostate cancer s/p TURP #History of diabetes mellitus - continue SSI Patient evaluated and examined at the bedside, plan of care discussed with rest of the team including my attending physician, except as noted. Quresh PGY2 Subjective Subjective Interval history: Patient seen today at the bedside found awake, alert. No overnight events reported. Patient more alert and awake compared to yesterday. Vital signs stable at this time. Labs noncontributory at this time. Follow-up head CT from yesterday shows stable hemorrhagic transformation in the posterior left temporal occipital lobe. Spoke to neurology recommends holding aspirin and Eliquis will continue only Plavix at this time for coronary artery disease and stent patency. Will continue current antibiotics ciprofloxacin IV for Staph epidermidis UTI. Exam Vital Signs Temp Pulse Resp BP Pulse Ox O2 Del Method O2 Flow Rate 97.9 F 60 16 150/70 H 99 Room Air 2 02/28/24 08:00 02/28/24 08:00 02/28/24 08:00 02/28/24 08:00 02/28/24 08:00 02/28/24 08:00 02/26/24 12:00 Narrative Exam Physical Exam GENERAL: NAD, awake, alert, able to state name HEENT: Moist mucosa. Eyes open, symmetrical, & clear CARDIO: Heart RRR, no obvious murmurs PULM: No noted coughing/dyspnea CTA B/L, no R/W/R GI: Abdomen soft, nondistended, no pain on palpation. BSx4 SKIN/MSK/EXT: No wounds/rashes/edema/amputations, no pain on palpation. Pedal pulses present B/L NEURO: Awake, alert Objective Labs 02/29/24 04:41 02/29/24 04:41 Labs: Laboratory Results - last 24 hr 02/28/24 05:00 WBC 6.1 RBC 4.53 Hgb 14.0 Hct 39.9 L MCV 88 MCH 30.9 MCHC 35.1 RDW Std Deviation 45.8 H Plt Count 303 D Neut % (Auto) 84 H Lymph % (Auto) 7 L [place] % (Auto) 8 Eos % (Auto) 0 Baso % (Auto) 0 Neut # (Auto) 5.2 Lymph # (Auto) 0.4 L [place] # (Auto) 0.5 Eos # (Auto) 0.0 Baso # (Auto) 0.0 Immature Gran # (Auto) 0.03 H Absolute Nucleated RBC 0.00 Immature Gran % 1 H Nucleated RBC % 0 Sodium 135 L Potassium 4.2 Chloride 100 Carbon Dioxide 24.9 Anion Gap 10 BUN 24 H Creatinine 1.2 Estim Creat Clear Calc 42.1 L eGFR 58 L BUN/Creatinine Ratio 20 Glucose 284 H Calculated Osmolality 284 Calcium 9.7 Corrected Calcium 9.8 Total Bilirubin 0.6 AST 19 ALT 16 Alkaline Phosphatase 57 Total Protein 6.4 Albumin 3.9 Globulin 2.5 Albumin/Globulin Ratio 1.6 ABG Interpretation ABG results: 02/27/24 12:00 ABG pH 7.46 H ABG pCO2 36 ABG pO2 68 L ABG HCO3 26 ABG O2 Saturation 95 ABG Base Excess 2 Quality Measures Quality Measures VTE prophylaxis Advance care planning discussed with:: patient and child Assessment & Plan Assessment Current Active Medications: Generic Name Dose Route Start Last Admin Trade Name Freq PRN Reason Stop Dose Admin Acetaminophen 650 mg 02/22/24 16:25 Acetaminophen 325 Mg Tablet PO 03/23/24 16:24 Q6H PRN Fever >100.5 Acetaminophen 650 mg 02/22/24 16:25 Acetaminophen 325 Mg Tablet PO 03/23/24 16:24 Q6H PRN PAIN SCALE 1-3 (mild Apixaban 2.5 mg 02/22/24 21:00 02/27/24 09:50 Apixaban 2.5 Mg Tablet PO 03/23/24 20:59 Not Given BID MI Aspirin 81 mg 02/23/24 09:00 02/27/24 09:50 Aspirin Ec 81 Mg Tabec PO 03/24/24 08:59 Not Given QDAY MI Atorvastatin Calcium 80 mg 02/22/24 21:00 02/27/24 21:35 Atorvastatin Calcium 20 Mg Tablet PO 03/23/24 20:59 Not Given HS MI Clopidogrel Bisulfate 75 mg 02/23/24 09:00 02/27/24 09:50 Clopidogrel Bisulfate 75 Mg Tablet PO 03/24/24 08:59 Not Given QDAY MI Dextrose 50 ml 02/22/24 16:36 Dextrose 50%-Water Inj 50 Ml Syringe IV 03/23/24 16:35 Q15MIN PRN BG <50 OR BG <70 & pt unresponsive Dextrose 25 ml 02/22/24 16:36 Dextrose 50%-Water Inj 50 Ml Syringe IV 03/23/24 16:35 Q15MIN PRN BG 50-70 responsive npo pt Docusate Sodium 100 mg 02/23/24 09:00 02/28/24 10:03 Docusate Sod 100 Mg Capsule PO 03/24/24 08:59 100 mg QDAY MI Administration Protocol Glucagon 1 mg 02/22/24 16:36 Glucagon Inj 1 Mg Vial IM Q15MIN PRN BG <70, and no IV access Ciprofloxacin/Dextrose 400 mg in 200 mls @ 200 mls/hr 02/27/24 16:05 02/28/24 10:02 Cipro Ivpb IV 03/05/24 16:04 200 mls/hr Q12HR MI Administration Insulin Glargine 20 unit 02/28/24 09:00 02/28/24 08:00 Insulin Glargine (Lantus) 5 Unit/0.05 Ml (Per 5 Units) SC 03/29/24 08:59 20 unit QDAY MI Administration Insulin Human Lispro 0 unit 02/22/24 17:00 02/28/24 07:55 Insulin Lispro (Admelog) 1 Unit/0.01 Ml Unit SC 03/23/24 16:59 4 unit AC MI Administration Protocol Ondansetron HCl 4 mg 02/22/24 16:25 Ondansetron Inj 2 Mg/Ml Inj 2 Ml IV 03/23/24 16:24 Q6H PRN NAUSEA OR VOMITING Protocol Pantoprazole Sodium 40 mg 02/27/24 09:00 02/28/24 10:03 Pantoprazole 40 Mg Tablet PO 03/28/24 08:59 40 mg QDAY MI Administration Plan 88-year-old male with past medical history of hypertension, CAD status post stents x 5, dementia, Parkinson's disease, diabetes, prostate cancer status post TURP procedure, atrial fibrillation presented to the ED from [facility] due to incomprehensible speech and slurred speech. Admitted for stroke workup # Acute ischemic stroke This morning 02/22/2024 around 9:30 AM, daughter received a call from caregiver stating that the patient was altered not oriented to time, person or place and was having difficulty speaking. Patient was also noted to have episodes of blank stares required to be shaken to respond Around 11 AM daughter saw the patient and noticed the patient was having word salad and was slurring his words. On examination patient is having word salad but is understanding CT head was done and showed Negative for acute hemorrhage, mass effect or midline shift. Head/neck CTA showed No significant neck arterial stenoses Short segment 70% stenosis distal M1 segment right middle cerebral artery Markedly reduced caliber and opacification left posterior cerebral artery NIHSS: 9 on admission In the ED patient was given Bolus with Clopidogrel 300 mg bolus x1 A1c 8.3, TSH within normal limits, B12 normal MRI brain shows Large areas of acute infarction left posterior temporal posterior parietal and left occipital lobe Smaller foci of acute infarction in the high left parietal lobe. Occlusion of the distal M1 segment left middle cerebral artery SRUTHI showed Negative bubble study. No evidence of PFO/ ASD or LA/RIMMA thrombus. Normal LV size and function. Estimated EF 55-60%. Normal RV size and function. Pacing wire present. Mild MR, AI. Trace TR. EEG abnormal This a.m. patient was found to be lethargic, somnolent, only responsive to pain with sternal rub not opening eyes ordered CT head and ABGs will follow-up F/u head Ct showed Large acute infarct left occipital lobe 25x18 mm focus mild hemorrhagic transformation in the left posterior temporal occipital lobe - High intensity statin - aspirin 81mg- on HOLD - on plavix 75mg - HOB >30 degrees - Neuro Checks q4h - HOB>30 - Aspiration precautions - Neurology, Dr. Lozano consulted, appreciate recommendations #Staph Epidermidids UTI UCx positive for Staph epidermidis was on Bactrim however considering patients mentation he is unable to take PO - on Ciprofloxacin IV #Dementia #Parkinson Disease Patient has hx of parkinsons, dementia, however daughter states patient does not take any medications for these diangoses Was on medication at one point on time however patient declined and was discontinued - f/u Neuro recommendations ? #Hypertension #CAD s/p stents #Atrial fibrillation - resume anti-hypertensives when appropiate - Aspirin and eliquis on HOLD - will keep Plavix for stent patency - Cardiology, Dr. Andersen, appreciate recommendations #Diabetes A1c 8.3 - ssi - hypoglycemic protocol in place #Hx of prostate cancer s/p TURP - monitor for now Case discussed with my senior Dr. Wolf PGY-[address] Roshni Barba MD PGY-1 Disposition: Telemetry Fluids: None Feeding: Dysphagia 3 Gastric Ulcer prophylaxis: none CODE STATUS: DNR Attending Provider Attestation/Addendum Teresita Monterroso, DO, attest that I was physically present for the [place] portions of the service and evaluated the patient with the resident and I reviewed and discussed the case with the resident and agree with the resident's findings and plans of care as documented above patient seen and evaluated this AM. Patient is more alert today, but less verbal. Per patient's son, patient does not want to eat even when awake. Will give him gentle IV fluids. Family considering hospice if patient is unable to tolerate PO intake, but would like to see if patient makes any improvement in alertness.
--- NOTE | 2024-02-28 12:56 | ESPR_ITS ---
<Statement entered by Nay Andersen MD - 03/01/24 13:06> I personally evaluated this patient who had a stroke occipital for a stroke on the left side developed slight hemorrhagic transformation requiring stopping of anticoagulation except the Plavix clinically doing better much more alert and awake appears to be doing a lot better now needs physical therapy we will keep close monitoring. Agree with treatment plan recommendation as documented with Dr. Cotton PGY 2 will continue to monitor the patient. Documentation for date of: 02/28/24 Subjective Subjective Interval history: Patient seen and assessed at bedside. Patient appears slightly better more responsive and answering questions. Patient able to lift left hand, but unable to lift the right hand. Heart rate in the 60s. Exam Vital Signs Temp Pulse Resp BP Pulse Ox O2 Del Method O2 Flow Rate 97.9 F 60 16 150/70 H 99 Room Air 2 02/28/24 08:00 02/28/24 08:00 02/28/24 08:00 02/28/24 08:00 02/28/24 08:00 02/28/24 08:00 02/26/24 12:00 Narrative Exam GENERAL: NAD, AO x 1, more responsive today. CARDIO: RRR, no obvious murmurs PULM: No noted coughing/dyspnea CTA B/L, no R/W/R GI: Abdomen soft, nondistended, no pain on palpation. NEURO: Able to lift left upper extremity, answers some questions with yes or no. Objective Labs 02/28/24 05:00 02/28/24 05:00 Labs: Laboratory Results - last 24 hr 02/28/24 05:00 WBC 6.1 RBC 4.53 Hgb 14.0 Hct 39.9 L MCV 88 MCH 30.9 MCHC 35.1 RDW Std Deviation 45.8 H Plt Count 303 D Neut % (Auto) 84 H Lymph % (Auto) 7 L [place] % (Auto) 8 Eos % (Auto) 0 Baso % (Auto) 0 Neut # (Auto) 5.2 Lymph # (Auto) 0.4 L [place] # (Auto) 0.5 Eos # (Auto) 0.0 Baso # (Auto) 0.0 Immature Gran # (Auto) 0.03 H Absolute Nucleated RBC 0.00 Immature Gran % 1 H Nucleated RBC % 0 Sodium 135 L Potassium 4.2 Chloride 100 Carbon Dioxide 24.9 Anion Gap 10 BUN 24 H Creatinine 1.2 Estim Creat Clear Calc 42.1 L eGFR 58 L BUN/Creatinine Ratio 20 Glucose 284 H Calculated Osmolality 284 Calcium 9.7 Corrected Calcium 9.8 Total Bilirubin 0.6 AST 19 ALT 16 Alkaline Phosphatase 57 Total Protein 6.4 Albumin 3.9 Globulin 2.5 Albumin/Globulin Ratio 1.6 ABG Interpretation ABG results: 02/27/24 12:00 ABG pH 7.46 H ABG pCO2 36 ABG pO2 68 L ABG HCO3 26 ABG O2 Saturation 95 ABG Base Excess 2 Quality Measures Quality Measures VTE prophylaxis Advance care planning discussed with:: patient Assessment & Plan Assessment Current Active Medications: Generic Name Dose Route Start Last Admin Trade Name Freq PRN Reason Stop Dose Admin Acetaminophen 650 mg 02/22/24 16:25 Acetaminophen 325 Mg Tablet PO 03/23/24 16:24 Q6H PRN Fever >100.5 Acetaminophen 650 mg 02/22/24 16:25 Acetaminophen 325 Mg Tablet PO 03/23/24 16:24 Q6H PRN PAIN SCALE 1-3 (mild Apixaban 2.5 mg 02/22/24 21:00 02/27/24 09:50 Apixaban 2.5 Mg Tablet PO 03/23/24 20:59 Not Given BID MI Aspirin 81 mg 02/23/24 09:00 02/27/24 09:50 Aspirin Ec 81 Mg Tabec PO 03/24/24 08:59 Not Given QDAY MI Atorvastatin Calcium 80 mg 02/22/24 21:00 02/27/24 21:35 Atorvastatin Calcium 20 Mg Tablet PO 03/23/24 20:59 Not Given HS MI Clopidogrel Bisulfate 75 mg 02/23/24 09:00 02/27/24 09:50 Clopidogrel Bisulfate 75 Mg Tablet PO 03/24/24 08:59 Not Given QDAY MI Dextrose 50 ml 02/22/24 16:36 Dextrose 50%-Water Inj 50 Ml Syringe IV 03/23/24 16:35 Q15MIN PRN BG <50 OR BG <70 & pt unresponsive Dextrose 25 ml 02/22/24 16:36 Dextrose 50%-Water Inj 50 Ml Syringe IV 03/23/24 16:35 Q15MIN PRN BG 50-70 responsive npo pt Docusate Sodium 100 mg 02/23/24 09:00 02/28/24 10:03 Docusate Sod 100 Mg Capsule PO 03/24/24 08:59 100 mg QDAY MI Administration Protocol Glucagon 1 mg 02/22/24 16:36 Glucagon Inj 1 Mg Vial IM Q15MIN PRN BG <70, and no IV access Ciprofloxacin/Dextrose 400 mg in 200 mls @ 200 mls/hr 02/27/24 16:05 02/28/24 10:02 Cipro Ivpb IV 03/05/24 16:04 200 mls/hr Q12HR MI Administration Insulin Glargine 20 unit 02/28/24 09:00 02/28/24 08:00 Insulin Glargine (Lantus) 5 Unit/0.05 Ml (Per 5 Units) SC 03/29/24 08:59 20 unit QDAY MI Administration Insulin Human Lispro 0 unit 02/22/24 17:00 02/28/24 12:18 Insulin Lispro (Admelog) 1 Unit/0.01 Ml Unit SC 03/23/24 16:59 5 unit AC MI Administration Protocol Ondansetron HCl 4 mg 02/22/24 16:25 Ondansetron Inj 2 Mg/Ml Inj 2 Ml IV 03/23/24 16:24 Q6H PRN NAUSEA OR VOMITING Protocol Pantoprazole Sodium 40 mg 02/27/24 09:00 02/28/24 10:03 Pantoprazole 40 Mg Tablet PO 03/28/24 08:59 40 mg QDAY MI Administration Plan Patient is an 88-year-old male with past medical history of hypertension, CAD status post stents x 5, dementia, Parkinson's disease, diabetes, prostate cancer status post TURP procedure, atrial fibrillation, and recent cardiac stent on 02-21-2024 that presented to the ED with signs and symptoms of stroke with slurred speech and left-sided hemiparesis. Cardiology consulted for recent catheterization and close monitoring due to past cardiac history. #CAD s/p PCI #History of A-fib #Hypertension Patient with recent stent placement now having hemorrhagic conversion from recent stroke. We will continue to hold aspirin and Eliquis We will continue Plavix 75 mg given patient has less than 1 month since stent placement and there is a high chance of reocclusion without antiplatelet medication in the first month. Family in agreement with continuing Plavix. Patient appears more alert today, but patient still far from baseline. #Stroke workup #Hemorrhagic stroke #Diabetes mellitus #Dementia #Prostate cancer #History of Parkinson's disease Continue management per primary team Case discussed with attending white sugar pan tank operator Dr. Ganesh Cotton MD PGY3.
[2024-02-28] MEDS: SODIUM CHLORIDE 0.9% 1000 ML 1,000 ML 75 ML IV (15:01)
--- NOTE | 2024-02-28 15:10 | PC.SS ---
Rounding Note: PEG tube placement has been declined. Family to decide home with hospice. D/C within 1-2 days.
[2024-02-28] MEDS: ATORVASTATIN CALCIUM 20 MG TABLET 80 MG PO (20:30)
[2024-02-28] MEDS: INSULIN LISPRO (AdmeLOG) 1 UNIT/0.01 ML UNIT 6 UNIT SC ×2 (21:01→22:18)
--- NOTE | 2024-02-28 22:58 | PD.NEUROPROG ---
Documentation for date of: 02/28/24 Subjective Subjective Interval history: Patient was seen in telemetry today at the bedside. Continues to be somnolent and unresponsive since last night. Exam - Neurology Vital Signs Temp Pulse Resp BP Pulse Ox O2 Del Method O2 Flow Rate 97.7 F 61 19 129/70 96 Room Air 2 02/28/24 20:00 02/28/24 20:00 02/28/24 20:00 02/28/24 20:00 02/28/24 20:00 02/28/24 20:00 02/26/24 12:00 Narrative Exam GENERAL APPEARANCE: Well hydrated, well-nourished in no acute distress. HEENT: Normocephalic, atraumatic, extraocular movements intact. Pupils: Equal reacting to light NECK: Supple, no JVD or bruits. CARDIOVASULAR: Heart: S1, S2 heard, regular without S3-S4 or murmur no rubs or gallops. LUNGS/CHEST: Clear to auscultation bilaterally. No rails, rhonchi, or wheezing. Normal inspection. ABDOMEN: Soft, nontender, with normal bowel sounds. No pulsatile masses. No rebound, rigidity, or guarding. Normal inspection and palpation. EXTREMITIES: Normal inspection and palpation. No edema, clubbing or cyanosis. SKIN: Warm and dry without rashes. Normal inspection. MUSCULOSKELETAL: No cervical, thoracic, lumbar or midline bony tenderness. Normal inspection. NEURO: somnolent, unresponsive to verbal commands or painful stimuli, brain stem function: intact, rest of the exam: Limited. no signs of meningeal irritation noted. PSYCHIATRIC: limited. Objective Labs 02/28/24 05:00 02/28/24 05:00 Labs: Laboratory Results - last 24 hr 02/28/24 05:00 WBC 6.1 RBC 4.53 Hgb 14.0 Hct 39.9 L MCV 88 MCH 30.9 MCHC 35.1 RDW Std Deviation 45.8 H Plt Count 303 D Neut % (Auto) 84 H Lymph % (Auto) 7 L [place] % (Auto) 8 Eos % (Auto) 0 Baso % (Auto) 0 Neut # (Auto) 5.2 Lymph # (Auto) 0.4 L [place] # (Auto) 0.5 Eos # (Auto) 0.0 Baso # (Auto) 0.0 Immature Gran # (Auto) 0.03 H Absolute Nucleated RBC 0.00 Immature Gran % 1 H Nucleated RBC % 0 Sodium 135 L Potassium 4.2 Chloride 100 Carbon Dioxide 24.9 Anion Gap 10 BUN 24 H Creatinine 1.2 Estim Creat Clear Calc 42.1 L eGFR 58 L BUN/Creatinine Ratio 20 Glucose 284 H Calculated Osmolality 284 Calcium 9.7 Corrected Calcium 9.8 Total Bilirubin 0.6 AST 19 ALT 16 Alkaline Phosphatase 57 Total Protein 6.4 Albumin 3.9 Globulin 2.5 Albumin/Globulin Ratio 1.6 ABG Interpretation ABG results: 02/27/24 12:00 ABG pH 7.46 H ABG pCO2 36 ABG pO2 68 L ABG HCO3 26 ABG O2 Saturation 95 ABG Base Excess 2 Assessment & Plan Assessment and plan (1) Acute CVA (cerebrovascular accident): Status: Acute Assessment and plan: Presenting with mixed aphasia, visual deficit without any motor or sensory symptoms. Loaded with Plavix by [employer]. Workup: Initial CT: negative for acute intracranial abnormality, CTA: short segment 70% stenosis distal M1 segment right middle cerebral artery Markedly reduced caliber and opacification left posterior cerebral artery; Repeat CT head showed large acute nonhemorrhagic infarct in the left occipital area. MRI brain from today showed extension of the infarction: Large areas of acute infarction left posterior temporal posterior parietal and left occipital lobe Smaller foci of acute infarction in the high left parietal lobe Occlusion of the distal M1 segment left middle cerebral artery Repeat CT head: radiologist reported hgic transformation in the left parietotemporal area. I do not think that there is any hemorrhagic transformation. Anyway, hold off on ASA and Eliquis. Keep him on Plavix as he underwent recent cardiac intervention Talked to the family to decide about the goals of care/aggressive medical mgt proceeding towards PEG tube for functional dysphagia versus comfort care with transfer to half-way /home with hospice. (2) Vascular dementia: Status: Chronic Assessment and plan: Progression noted hard to assess from language deficit from the new stroke. EEG showed no epileptiform discharges (3) Diabetes mellitus: Status: Chronic Assessment and plan: needs better control, A1C: 8.3 (4) Coronary artery disease: Status: Chronic Assessment and plan: Stable s/p PCI before admission,
[2024-02-29] VITALS: BP 139/72; PULSE 61; PULSE 62; RESP 17; TEMP 36.4; O2SAT 97
[2024-02-29 04:00] VITALS: BP 129/73; PULSE 61; PULSE 63; RESP 16; TEMP 36.3; O2SAT 98
[2024-02-29] MEDS: SODIUM CHLORIDE 0.9% 1000 ML 1,000 ML 75 ML IV (05:23)
[2024-02-29 05:25] VITALS: BMI 22.1
[2024-02-29 06:19] LABS: Basophils % (Auto) 1 % (0-2.5); Eosinophils % (Auto) 1 % (0-10); Hemoglobin 13.7 g/dL (13.5-16.0); Immature Granulocytes % (Auto) 1 % (0-0); Immature Granulocytes Auto 0.04 Thou/mm3 (0.00-0.00); Lymphocytes # (Auto) 0.8 Thou/mm3 (1.0-4.8); Lymphocytes % (Auto) 13 % (10-50); Mean Corpuscular HGB Conc 35.1 g/dl (31.0-37.0); Mean Corpuscular Hemoglobin 31.2 pg (25.0-35.0); Mean Corpuscular Volume 89 fL (80-100); Monocytes # (Auto) 0.9 Thou/mm3 (0.0-0.8); Monocytes % (Auto) 13 % (0-12); Neutrophils # (Auto) 4.8 Thou/mm3 (1.8-7.7); Neutrophils % (Auto) 73 % (37-80); Nucleated Red Blood Cell % 0 /100 WBC (0); Platelet Count 222 Thou/mm3 (140-440); RDW Standard Deviation 45.9 fL (35.1-43.9); Red Blood Count 4.39 Miln/mm3 (4.50-5.90); White Blood Count 6.6 Thou/mm3 (3.8-10.6)
[2024-02-29 06:27] LABS: Alanine Aminotransferase 18 U/L (10-49); Albumin, Serum 3.7 gm/dL (3.4-4.8); Albumin/Globulin Ratio 1.6 (1.2-2.2); Alkaline Phosphatase 55 U/L (46-116); Anion Gap 9 (7-16); Aspartate Amino Transferase 25 U/L (0-34); BUN/Creatinine Ratio 21 Ratio (12-20); Bilirubin,Total 0.4 mg/dL (0.3-1.2); Blood Urea Nitrogen 23 mg/dL (9-23); Calcium 9.8 mg/dL (8.3-10.6); Carbon Dioxide 26.2 mMol/L (20.0-31.0); Chloride 103 mMol/L (98-107); Creatinine (Component) 1.1 mg/dL (0.6-1.3); Estimated Creatinine Clearance 45.9 mL/min (>60); Globulin 2.3 gm/dL (2.3-3.5); Glucose 187 mg/dL (74-106); Osmolality,Calculated 284 (275-295); Potassium 3.8 mMol/L (3.4-5.1); Sodium 138 mMol/L (136-145); eGFR > 60 See Note
[2024-02-29 08:00] VITALS: BP 145/79; PULSE 60; PULSE 68; RESP 28; TEMP 36.4; O2SAT 99
[2024-02-29] MEDS: INSULIN GLARGINE (Lantus) 5 UNIT/0.05 ML (PER 5 UNITS) 20 UNIT SC (08:03)
[2024-02-29] MEDS: INSULIN LISPRO (AdmeLOG) 1 UNIT/0.01 ML UNIT SC ×3 (08:03→17:13)
[2024-02-29] MEDS: CLOPIDOGREL BISULFATE 75 MG TABLET PO (08:04)
[2024-02-29] MEDS: DOCUSATE SOD 100 MG CAPSULE PO (08:04)
[2024-02-29] MEDS: CIPROFLOXACIN/D5w 400 MG IVPB 400 MG/200 ML BAG 200 MG IV (08:04)
[2024-02-29] MEDS: PANTOPRAZOLE 40 MG TABLET PO (08:04)
--- NOTE | 2024-02-29 08:54 | PC.SS ---
JEWEL INSPECTOR conducted bedside contact with patient's son and daughter. JEWEL INSPECTOR confirmed that discharge plan is for the patient to return home ([facility]) without hospice due to the patient passing swallow evaluation. JEWEL INSPECTOR confirmed that [employer] appeal has been cancelled due to change in patient's circumstance (brain bleed). Family updated on [employer] cancellation. Plan is to transition patient from IV medication to oral. In addition, PT has been ordered. Possible d/c today.
--- NOTE | 2024-02-29 09:16 | PC.SS ---
BARK SPUDDER confirmed that patient does not possess ambulance transport coverage thru [employer]. Family agreeable to out of pocket cost for ambulance transport upon patient's discharge.
[2024-02-29 12:00] VITALS: BP 127/59; PULSE 60; PULSE 66; RESP 24; TEMP 35.9; O2SAT 99
[2024-02-29] MEDS: INSULIN LISPRO (AdmeLOG) 1 UNIT/0.01 ML UNIT 4 UNIT SC ×2 (12:02→17:13)
--- NOTE | 2024-02-29 12:24 | ESPR_ITS ---
<Statement entered by Nay Andersen MD - 03/01/24 13:09> The patient is examined by me appears much more alert and awake today neurologic symptoms improved however still has some speech problems as occipital bilateral stroke and suffered slight hemorrhagic transformation which is concerning but appears to be improving no edema will continue only Plavix for now after a couple of weeks reevaluate him possibly add Eliquis if the CT scan showed no further progression at that time Documentation for date of: 02/29/24 Subjective Subjective Interval history: Patient seen and assessed at bedside. Patient still pretty somnolent. Patient answered yes to his name and perked up when I stated I was with Dr. Andersen. Exam Vital Signs Temp Pulse Resp BP Pulse Ox O2 Del Method O2 Flow Rate 97.5 F 68 28 H 145/79 H 99 Room Air 2 02/29/24 08:00 02/29/24 08:00 02/29/24 08:00 02/29/24 08:00 02/29/24 08:00 02/29/24 04:00 02/26/24 12:00 Narrative Exam GENERAL: NAD, lethargic and somnolent,. CARDIO: RRR, no obvious murmurs PULM: No noted coughing/dyspnea CTA B/L, no R/W/R GI: Abdomen soft, nondistended, no pain on palpation. NEURO: Is moving left upper extremity. Hard to assess overall status. Objective Labs 02/29/24 04:41 02/29/24 04:41 Labs: Laboratory Results - last 24 hr 02/29/24 04:41 WBC 6.6 RBC 4.39 L Hgb 13.7 Hct 39.0 L MCV 89 MCH 31.2 MCHC 35.1 RDW Std Deviation 45.9 H Plt Count 222 D Neut % (Auto) 73 Lymph % (Auto) 13 [place] % (Auto) 13 H Eos % (Auto) 1 Baso % (Auto) 1 Neut # (Auto) 4.8 Lymph # (Auto) 0.8 L [place] # (Auto) 0.9 H Eos # (Auto) 0.0 Baso # (Auto) 0.0 Immature Gran # (Auto) 0.04 H Absolute Nucleated RBC 0.00 Immature Gran % 1 H Nucleated RBC % 0 Sodium 138 Potassium 3.8 Chloride 103 Carbon Dioxide 26.2 Anion Gap 9 BUN 23 Creatinine 1.1 Estim Creat Clear Calc 45.9 L eGFR > 60 BUN/Creatinine Ratio 21 H Glucose 187 H D Calculated Osmolality 284 Calcium 9.8 Corrected Calcium 10.0 Total Bilirubin 0.4 AST 25 ALT 18 Alkaline Phosphatase 55 Total Protein 6.0 Albumin 3.7 Globulin 2.3 Albumin/Globulin Ratio 1.6 ABG Interpretation ABG results: 02/27/24 12:00 ABG pH 7.46 H ABG pCO2 36 ABG pO2 68 L ABG HCO3 26 ABG O2 Saturation 95 ABG Base Excess 2 Quality Measures Quality Measures VTE prophylaxis Advance care planning discussed with:: patient Assessment & Plan Assessment Current Active Medications: Generic Name Dose Route Start Last Admin Trade Name Freq PRN Reason Stop Dose Admin Acetaminophen 650 mg 02/22/24 16:25 Acetaminophen 325 Mg Tablet PO 03/23/24 16:24 Q6H PRN Fever >100.5 Acetaminophen 650 mg 02/22/24 16:25 Acetaminophen 325 Mg Tablet PO 03/23/24 16:24 Q6H PRN PAIN SCALE 1-3 (mild Apixaban 2.5 mg 02/22/24 21:00 02/27/24 09:50 Apixaban 2.5 Mg Tablet PO 03/23/24 20:59 Not Given BID MI Aspirin 81 mg 02/23/24 09:00 02/27/24 09:50 Aspirin Ec 81 Mg Tabec PO 03/24/24 08:59 Not Given QDAY MI Atorvastatin Calcium 80 mg 02/22/24 21:00 02/28/24 20:30 Atorvastatin Calcium 20 Mg Tablet PO 03/23/24 20:59 80 mg HS MI Administration Clopidogrel Bisulfate 75 mg 02/23/24 09:00 02/29/24 08:04 Clopidogrel Bisulfate 75 Mg Tablet PO 03/24/24 08:59 75 mg QDAY MI Administration Dextrose 50 ml 02/22/24 16:36 Dextrose 50%-Water Inj 50 Ml Syringe IV 03/23/24 16:35 Q15MIN PRN BG <50 OR BG <70 & pt unresponsive Dextrose 25 ml 02/22/24 16:36 Dextrose 50%-Water Inj 50 Ml Syringe IV 03/23/24 16:35 Q15MIN PRN BG 50-70 responsive npo pt Docusate Sodium 100 mg 02/23/24 09:00 02/29/24 08:04 Docusate Sod 100 Mg Capsule PO 03/24/24 08:59 100 mg QDAY MI Administration Protocol Glucagon 1 mg 02/22/24 16:36 Glucagon Inj 1 Mg Vial IM Q15MIN PRN BG <70, and no IV access Ciprofloxacin/Dextrose 400 mg in 200 mls @ 200 mls/hr 02/27/24 16:05 02/29/24 08:04 Cipro Ivpb IV 03/05/24 16:04 200 mls/hr Q12HR MI Administration Sodium Chloride 1,000 mls @ 75 mls/hr 02/28/24 14:35 02/29/24 05:23 Ns IV 03/29/24 14:34 75 mls/hr .[id number] MI Administration Insulin Glargine 20 unit 02/28/24 09:00 02/29/24 08:03 Insulin Glargine (Lantus) 5 Unit/0.05 Ml (Per 5 Units) SC 03/29/24 08:59 20 unit QDAY MI Administration Insulin Human Lispro 0 unit 02/22/24 17:00 02/29/24 12:02 Insulin Lispro (Admelog) 1 Unit/0.01 Ml Unit SC 03/23/24 16:59 4 unit AC MI Administration Protocol Insulin Human Lispro 4 unit 02/29/24 11:30 02/29/24 12:02 Insulin Lispro (Admelog) 1 Unit/0.01 Ml Unit SC 03/30/24 11:29 4 unit ACHS MI Administration Ondansetron HCl 4 mg 02/22/24 16:25 Ondansetron Inj 2 Mg/Ml Inj 2 Ml IV 03/23/24 16:24 Q6H PRN NAUSEA OR VOMITING Protocol Pantoprazole Sodium 40 mg 02/27/24 09:00 02/29/24 08:04 Pantoprazole 40 Mg Tablet PO 03/28/24 08:59 40 mg QDAY MI Administration Plan Patient is an 88-year-old male with past medical history of hypertension, CAD status post stents x 5, dementia, Parkinson's disease, diabetes, prostate cancer status post TURP procedure, atrial fibrillation, and recent cardiac stent on 02-21-2024 that presented to the ED with signs and symptoms of stroke with slurred speech and left-sided hemiparesis. Cardiology consulted for recent catheterization and close monitoring due to past cardiac history. #CAD s/p PCI #History of A-fib #Hypertension Patient with recent stent placement now having hemorrhagic conversion from recent stroke. We will continue to hold aspirin and Eliquis We will continue Plavix 75 mg given patient has less than 1 month since stent placement and there is a high chance of reocclusion without antiplatelet medication in the first month. Family in agreement with continuing Plavix. #Stroke workup #Hemorrhagic stroke #Diabetes mellitus #Dementia #Prostate cancer #History of Parkinson's disease Continue management per primary team Case discussed with attending ditch inspector Dr. Ganesh Cotton MD PGY3.
--- NOTE | 2024-02-29 15:44 | ESDS_ITS ---
<Statement entered by Teresita Barakat DO - 03/01/24 09:18> I, Teresita Barakat DO, attest that I was physically present for the [place] portions of the service and evaluated the patient with the resident and I reviewed and discussed the case with the resident and agree with the resident's findings and plans of care as documented above Planned Discharge Date 02/29/24 DS: Providers Provider Date of admission: 02/22/24 16:35 Primary care physician: Yusuf Martin MD Admitting Provider: Teresita Barakat DO Attending Provider on Admission: Von Azevedo MD Consults: 02/22/24 13:39 Consult to Neurology / Tele-Neurology Routine Comment: Consulting Provider: [facility] 02/22/24 16:27 Referral Speech Therapy Stat Comment: 02/22/24 16:29 Referral Physical Therapy Stat Comment: Physician Instructions: 02/22/24 16:48 Consult to Cardiology Stat Comment: Consulting Provider: Nay Andersen Consult to Neurology / Tele-Neurology Stat Comment: Consulting Provider: Luciano Lozano 02/23/24 12:09 Consult to Cardiology Stat Comment: SRUTHI Consulting Provider: Sameer Damon 02/25/24 15:10 Referral Physical Therapy Stat Comment: Physician Instructions: Attending Provider on DC: Teresita Barakat DO Discharging Provider: Maximo Barba MD Anticipated date of discharge: 02/29/24 DS: Diagnosis Problem List Completed Was Problem List Reviewed/Reconciled?: Yes Hospital Course Hospital Course Hospital course: 88-year-old male with past medical history of hypertension, CAD status post stents x 5, dementia, Parkinson's disease, diabetes, prostate cancer status post TURP procedure, atrial fibrillation presented to the ED from [facility] due to incomprehensible speech and slurred speech. Admitted for stroke workup. During hospital stay patient underwent stroke work up including consulting Teleneurology and imaging studies such as Head CT which showed Interval acute infarct, nonhemorrhagic, left occipital lobe, Head/Neck CTA showed No significant neck arterial stenoses Short segment 70% stenosis distal M1 segment right middle cerebral artery. Markedly reduced caliber and opacification left posterior cerebral artery. Transesophageal Echocardiogram was also done as part of stroke work up which was negative for PFO or ASD, EF 55-60%. MRI brain was also done. Patient was started on Aspirin, high intensity atorvastatin 80mg, plavix 75mg. Patient was monitored with frequent neuro checks to evaluate neuro status during hospitalization. In house Neurology was consulted and evaluated the patient and provided recommendations. Cardiology Dr. Andersen was also consulted as patient recent cardiac cath procedure, recommended patient to continue with triple therapy for at least 30 days and later continue with plavix and eliquis. Instructed to follow up with Cardiology within 1 week of discharge. Physical therapy and speech therapy were consulted and patient passed swallow evaluation. PT evaluation recommended the patient go to acute rehab facility for daily physical therapy however patients family decided to do Home with home health at the time of discharge. Patients Hypertension, Afib, and CAD were managed with Dual antiplatelet therapy. However patient's mentation worsened during hospital stay repeat head CT was done and showed hemorrhagic transformation of acute stroke spoke to cardiology and neurology recommended patient discontinue aspirin and Eliquis and continue on Plavix for patency of his recent cardiac stent. Repeat physical therapy evaluation was done and they determined that patient should go to an acute rehab facility or SNF however patient's family decided against these recommendations and preferred to do home with home health. Diabetes was managed with insulin sliding scale. Patient had a urine culture that grew Staph epidermidis UTI patient was started on ciprofloxacin IV and was transition to p.o. medications at the time of disc harge. At this time patient is medically stable for discharge. As per neurology and cardiology recommendations, recommend continuing Plavix 75 mg/day and follow up with dr Sunshine in one week and follow-up with neurologist Dr Lozano within 2 weeks of discharge from hospital. Continue antibiotic ciprofloxacin for 5 more days for treatment of UTI. Recommend to follow up with primary care physician within 1 week of discharge. As discussed, the risk of bleeding with current medications is very high, if any signs of bleeding, dizziness, weakness or worsening neurological symptoms, please return to the emergency room. Problem list: # Acute ischemic stroke #Stable hemorrhagic transformation #Staph Epidermidids UTI #Dementia #Parkinson Disease #Hypertension #CAD s/p stents #Atrial fibrillation #Diabetes #Hx of prostate cancer s/p TURP Case discussed with my attending Dr. Roshni Barba MD PGY-1 Time Spent with Patient Time attestation: Total time spent providing and/or coordinating discharge services: > 30 min Home Health Home Health Referral Orders: 02/29/24 09:48 Home Health Referral Routine Reason For Exam: CVA Home-Bound The patient must either because of illness or injury, need the aid of supportive devices such as crutches, canes, wheelchairs, and walkers; the use of special transportation; or the assistance of another person in order to leave their place of residence; OR have a condition such that leaving his or her home is medically contraindicated. In addition, the patient also meets the following criteria: patient is normally unable to leave the home and leaving home requires considerable taxing effort. Addendum to Home Health Certification Practitioner's Certification: I certify that the patient has been under my care in the hospital and the care of attending physician (see below). We had a [id number] encounter on (see date below). My clinical findings indicate that the patient is home bound per the above criteria and the Home Health Services noted in these orders are medically necessary. The primary reason for the [id number] encounter is related to the fact that the patient requires home health services. Date Certifying [id number] Physician Encounter: 02/22/24 Physician's Name who will Assume Oversight for Services: Yusuf Martin Physician's Phone No.who will Assume Oversight for Service: HOTEL MANAGER - Community Resources: No PT to Evaluate: Yes PT to evaluate and provide a treatmnet plan to increase patient's mobility and strength. Wound Care: No IV Therapy: No RN Safety Evaluation: Yes RN to evaluate and create a plan of care that will produce positive outcomes. Palliative Treatment: No Palliative treatment and evaluate the need for hospice. Home Health Aide - Personal Care: Yes Home Health Aide to assist with any ADL's. Exam Vital Signs Temp Pulse Resp BP Pulse Ox O2 Del Method O2 Flow Rate 96.7 F L 60 24 H 127/59 L 99 Room Air 2 02/29/24 12:00 02/29/24 12:00 02/29/24 12:00 02/29/24 12:00 02/29/24 12:00 02/29/24 12:02/26/24 12:00 Narrative Exam Physical Exam GENERAL: NAD, awake, episodes of somnolence and lethargy HEENT: Moist mucosa. Eyes open, symmetrical, & clear CARDIO: Heart RRR, no obvious murmurs PULM: No noted coughing/dyspnea CTA B/L, no R/W/R GI: Abdomen soft, nondistended, no pain on palpation. BSx4 SKIN/MSK/EXT: No wounds/rashes/edema/amputations, no pain on palpation. Pedal pulses present B/L NEURO: awake, episodes of somnolence and lethargy, able to move all 4 extremities Discharge Plan Plan Patient Disposition: Home w/HOME HEALTH Patient condition on transfer: Stable Care Plan Goals: As per neurology and cardiology recommendations, recommend continuing Plavix 75 mg/day and follow up with dr Sunshine in one week and follow-up with neurologist Dr Lozano within 2 weeks of discharge from hospital. Continue antibiotic ciprofloxacin for 5 more days for treatment of UTI. Recommend to follow up with primary care physician within 1 week of discharge. As discussed, the risk of bleeding with current medications is very high, if any signs of bleeding, dizziness, weakness or worsening neurological symptoms, please return to the emergency room. Prescriptions/Referrals Prescriptions/Med Rec: New atorvastatin 40 mg tablet 80 mg PO HS 30 Days Qty: 60 0RF clopidogrel 75 mg Tablet 75 mg PO QDAY 30 Days Qty: 30 0RF pantoprazole 40 mg Tablet,Delayed Release (Dr/Ec) 40 mg PO QDAY 30 Days Qty: 30 0RF ciprofloxacin HCl 500 mg tablet 500 mg PO BID Qty: 10 0RF Continued Januvia 50 mg Tablet 50 mg PO QDAY insulin glargine [Lantus Solostar U-100 Insulin] 100 unit/mL (3 mL) Insulin Pen 20 unit SUBCUT DAILY Rx Instructions: with meal metformin 500 mg Tablet 500 mg PO BID Hold Instructions: Resume on 01/19/24. nateglinide 60 mg Tablet 60 mg PO BID Rx Instructions: give before meal(s) Discontinued aspirin 81 mg Tablet,Delayed Release (Dr/Ec) 81 mg PO QDAY Hold Instructions: Resume on 06/22/23. Brilinta 90 mg Tablet 90 mg PO BID Qty: 60 0RF No Action ramipril 2.5 mg Capsule 2.5 mg PO QDAY Referrals: Yusuf Martin MD [Primary Care Provider] - Patient/Caregiver Discharge Instructions Print Language: Mohawk Stand Alone Forms: [employer] Award Info., Patient Portal Info Letter Discharge Order Discharge Orders: Discharge (Routine); Ordered 02/29/24 Ordered By: Maximo Barba Quality Discharge Quality Measures VTE prophylaxis
[2024-02-29 16:00] VITALS: BP 137/69; PULSE 60; PULSE 65; RESP 16; TEMP 36.4; O2SAT 99
[2024-02-29 16:02] VITALS: BMI 12.0
--- NOTE | 2024-02-29 16:27 | PC.SS ---
WATER AEROBICS INSTRUCTOR confirmed with patient's son, Issac Jorge; that plan is to d/c patient home to [facility] with [facility].
--- NOTE | 2024-02-29 16:33 | PC.SS ---
MURAL PAINTER informed transfer nurse that plan is for the patient to return home to [facility]. Preferred home health agency is [facility].
--- NOTE | 2024-02-29 16:54 | PC.SS ---
Ambulance transport scheduled for 6:00 pm this evening. Patient's family to pay privately. INFORMATICS COORDINATOR updated bedside nurse and patient's family on transport time.
--- NOTE | 2024-02-29 21:07 | PD.VPROG1 ---
Telemedicine visit statement This visit was conducted with the use of phone was obtained on 02/29/24.. Documentation for date of: 02/29/24 Subjective Subjective Interval history: Patient is in telemetry, continues to have aphasia, Tolerating oral diet well. Not able to do much at PT session today. Virtual exam Vital Signs Temp Pulse Resp BP Pulse Ox O2 Del Method O2 Flow Rate 97.6 F 60 16 137/69 H 99 Room Air 2 02/29/24 16:00 02/29/24 16:00 02/29/24 16:00 02/29/24 16:00 02/29/24 16:00 02/29/24 16:00 02/26/24 12:00 Objective Labs 02/29/24 04:41 02/29/24 04:41 Labs: Laboratory Results - last 24 hr 02/29/24 04:41 WBC 6.6 RBC 4.39 L Hgb 13.7 Hct 39.0 L MCV 89 MCH 31.2 MCHC 35.1 RDW Std Deviation 45.9 H Plt Count 222 D Neut % (Auto) 73 Lymph % (Auto) 13 [place] % (Auto) 13 H Eos % (Auto) 1 Baso % (Auto) 1 Neut # (Auto) 4.8 Lymph # (Auto) 0.8 L [place] # (Auto) 0.9 H Eos # (Auto) 0.0 Baso # (Auto) 0.0 Immature Gran # (Auto) 0.04 H Absolute Nucleated RBC 0.00 Immature Gran % 1 H Nucleated RBC % 0 Sodium 138 Potassium 3.8 Chloride 103 Carbon Dioxide 26.2 Anion Gap 9 BUN 23 Creatinine 1.1 Estim Creat Clear Calc 45.9 L eGFR > 60 BUN/Creatinine Ratio 21 H Glucose 187 H D Calculated Osmolality 284 Calcium 9.8 Corrected Calcium 10.0 Total Bilirubin 0.4 AST 25 ALT 18 Alkaline Phosphatase 55 Total Protein 6.0 Albumin 3.7 Globulin 2.3 Albumin/Globulin Ratio 1.6 ABG Interpretation ABG results: 02/27/24 12:00 ABG pH 7.46 H ABG pCO2 36 ABG pO2 68 L ABG HCO3 26 ABG O2 Saturation 95 ABG Base Excess 2 Assessment & Plan Problem List (1) Acute CVA (cerebrovascular accident): Status: Acute Assessment and plan: still with residual aphasia Continue with Plavix and hold off on ASA and Eliquis Family wants him to be discharged home with home health PT and Speech therapy. (2) Vascular dementia: Status: Chronic Assessment and plan: at baseline, hard to assess from aphasia. (3) Diabetes mellitus: Status: Chronic Assessment and plan: needs better control (4) Coronary artery disease: Status: Chronic Assessment and plan: stable s/p recent PCI
--- NOTE | 2024-03-01 18:40 | PC.CM ---
I sent referral to [facility] today.
--- NOTE | 2024-03-02 07:50 | PC.CM ---
[facility] accepted patient. Pending start of care date.
--- NOTE | 2024-03-03 11:10 | PC.CM ---
Start of care date with [facility] is 03/02/24.
== END 2024-02-29 18:02 | disposition home health service (06) | DRG 64 ==
LOC: SERX 16:54 → SERHOLD 17:05 → S2NX 02-23 06:17 → S3SX 02-25 01:06 → S2NX 02-27 20:09
PROVIDERS: Internal Medicine Cardiovascular Disease; Student in an Organized Health Care Education/Training Program; Admitting Provider Internal Medicine; Emergency Provider Emergency Medicine; PCP Internal Medicine; Visit Provider Internal Medicine
PROC: (CPT 93312; principal; 2024-02-23 12:30)
DX: I63.9 Cerebral infarction, unspecified (principal); I61.9 Nontraumatic intracerebral hemorrhage, unspecified; I48.20 Chronic atrial fibrillation, unspecified; N39.0 Urinary tract infection, site not specified; R47.1 Dysarthria and anarthria; Z95.5 Presence of coronary angioplasty implant and graft; I25.10 Atherosclerotic heart disease of native coronary artery without angina pectoris; I48.91 Unspecified atrial fibrillation; Z95.0 Presence of cardiac pacemaker; F02.80 Dementia in other diseases classified elsewhere, unspecified severity, without behavioral disturbance, psychotic disturbance, mood disturbance, and anxiety; G20.A1 Parkinson's disease without dyskinesia, without mention of fluctuations; E11.9 Type 2 diabetes mellitus without complications; I10 Essential (primary) hypertension; Z90.79 Acquired absence of other genital organ(s); R29.709 NIHSS score 9; Z66 Do not resuscitate; Z85.46 Personal history of malignant neoplasm of prostate; F01.50 Vascular dementia, unspecified severity, without behavioral disturbance, psychotic disturbance, mood disturbance, and anxiety; R47.01 Aphasia; B95.7 Other staphylococcus as the cause of diseases classified elsewhere; I66.02 Occlusion and stenosis of left middle cerebral artery
CPT/HCPCS: 36415; 36600; 70450; 70496; 70498; 70544; 71045; 80053; 80061; 80307; 81001; 82607; 82803; 83036; 83690; 83735; 83880; 84443; 84484; 85025; 85610; 85730; 87077; 87086; 87186; 92507; 92523; 92526; 92610; 93005; 93225; 93306; 93312; 95816; 96372; 97162; 99152; 99285; A4649; J0744; J1815; J2250; J2470; J3010; J3475; J7030; Q9967; A9270